=== PATIENT | female | born 1970 | race Caucasian/White ===

== ENCOUNTER → 2017-09-16 18:20 | Outpatient (CLI) | payer MEDICAID, SELFPAY ==
--- NOTE | 2017-09-16 14:00 | EMB_PTH ---
PATIENT: ISAAC RED LOC: [facility] U#:[id number] AGE/SX: 54/F ROOM: RE09/16/[address]: Dr. Angela Abdi MD : 1970 BED: DIS: SPEC #: [id number] RECD: 09/16/17 18:20 STATUS: CAMILA KAM #: [id number] KORY: 09/16/17 14:[address]: Angela Dennis DEPT: SURGICAL PATHOLOGY RECD BY: Ari Krishna ENTERED: 09/19/17 08:58 SP TYPE: ENDOM BX/C JOSR DR: [facility] Tissues: Endometrium, NOS Procedures: Surgery Specimen Level IV HEADER OPERATION: EMBX PRE-OP DIAGNOSIS: N92.0 TISSUE SUBMITTED: Endometrium MICROSCOPIC DIAGNOSIS Endometrial biopsy: Simple hyperplasia without atypia. SJ:sylwia 09/20/17 MICROSCOPIC DESCRIPTION Slides are reviewed. GROSS DESCRIPTION Received in fixative is one container labeled with the patient's name and designated EM biopsy. The specimen consists of multiple fragments of hemorrhagic soft tissue that in aggregate measure 3 x 2.5 x 0.3 cm. The specimen is totally submitted in one cassette. / SJ:sylwia 09/19/17 TC:5 CPT: 71458
== END ==
PROVIDERS: Visit Provider Obstetrics & Gynecology
DX: N92.0 Excessive and frequent menstruation with regular cycle (principal)
CPT/HCPCS: 88305

== ENCOUNTER → 2017-11-04 09:14 | Outpatient (CLI) | payer MEDICAID, SELFPAY ==
--- NOTE | 2017-11-04 09:16 | BI_ITS ---
MAMMOGRAPHY - BILATERAL SCREENING REASON FOR EXAM: Female, 47 years old. Routine annual screening examination. PERTINENT HISTORY: Non-contributory. TECHNIQUE: Digital bilateral breast ariel (3D mammographic acquisition) in the CC and MLO projections. 2-D mediolateral oblique (MLO) and craniocaudad (CC) views of both breasts were obtained. CAD: Full Field Digital Mammography with Computer Added Detection was performed. COMPARISON: None. Baseline examination. FINDINGS: Breast Composition: The breasts are heterogeneously dense, which may obscure small masses. There are no dominant masses or suspicious calcifications. No other significant abnormalities are identified. BI/SCREENING MAMM (CAD), BILAT IMPRESSION: Negative screening mammogram. Yearly followup mammogram recommended. (A) ASSESSMENT CATEGORY: BIRADS Category 1: Negative. A letter regarding these results will be sent to the patient by the facility within 30 days. Approximately 10% of breast cancers are not detected by mammography. A normal mammogram should not delay biopsy of a clinically suspicious abnormality. [id number] Electronically Signed: Cale Madison MD at 13:39 EDT Tel [phone], Service support ,
== END ==
DX: Z12.31 Encounter for screening mammogram for malignant neoplasm of breast (principal)
CPT/HCPCS: 77063; 77067

== ENCOUNTER 2017-11-19 22:44 | Inpatient (IN) | payer MEDICAID, SELFPAY ==
[2017-11-19 22:49] VITALS: BP 96/57; PULSE 226; RESP 20; TEMP 35.5; O2SAT 98; BMI 30.7
[2017-11-19 22:54] VITALS: O2SAT 98
[2017-11-19] MEDS: Adenosine 6 MG/2 ML Syringe IV (22:58)
[2017-11-19 23:00] VITALS: BP 116/92; PULSE 109; RESP 23; O2SAT 98
--- NOTE | 2017-11-19 23:00 | EKG12_ITS ---
Test Reason : REPEAT Blood Pressure : / mmHG Vent. Rate : 105 BPM Atrial Rate : 105 BPM P-R Int : 124 ms QRS Dur : 082 ms QT Int : 342 ms P-R-T Axes : 039 040 029 degrees QTc Int : 452 ms Sinus tachycardia Otherwise normal ECG Confirmed by LAUREN ESPARZA, GURWINDER ([id number]), editor managing newspaper CHANDRAKANT ROBERTS ([id number]) on 11/21/2017 3:14:34 PM Referred By: RAUL Confirmed By:GURWINDER AGUILAR MD
--- NOTE | 2017-11-19 23:00 | RAD_ITS ---
STUDY: X-RAY CHEST REASON FOR EXAM: Female, 47 years old. Chest pain TECHNIQUE: Single AP portable view of the chest. 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 There is a small calcified granuloma of the right upper lobe. 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 There is no demonstrated pleural abnormality. Normal size heart. Normal mediastinum and hernan. Normal visualized pulmonary arteries. Normal visualized aortic arch and descending thoracic aorta. Normal visualized thoracic spine. Normal visualized ribs, clavicles, and shoulders. There is no demonstrated abnormality of the visualized soft tissue structures of the upper abdomen. RAD/Chest 1 View (Portable) IMPRESSION: 1. 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 2. Small calcified granuloma of the right upper lobe, stable in the interval. 3. No acute cardiopulmonary disease process is seen. Electronically Signed: Garrick Weeks MD at 23:28 EDT , Service support ,
[2017-11-19] MEDS: 0.9% Normal Saline 1,000 ML 150 ML IV (23:04)
--- NOTE | 2017-11-19 23:05 | EKG12_ITS ---
Test Reason : SOB/CP Blood Pressure : / mmHG Vent. Rate : 218 BPM Atrial Rate : 214 BPM P-R Int : 000 ms QRS Dur : 068 ms QT Int : 198 ms P-R-T Axes : 000 045 270 degrees QTc Int : 377 ms Supraventricular tachycardia Marked ST abnormality, possible myocardial ischemia (anterior-laterial inferior) Abnormal ECG Confirmed by LAUREN ESPARZA, GURWINDER ([id number]), film editor CHANDRAKANT ROBERTS ([id number]) on 11/21/2017 3:17:54 PM Referred By: RAUL Confirmed By:GURWINDER AGUILAR MD
[2017-11-19] MEDS: Aspirin 81 MG TAB.CHEW 324 MG PO (23:08)
[2017-11-19 23:13] LABS: Absolute Neutrophil Count 8.6 X10^3/uL (2.0-7.7); Basophil# 0.03 X10^3/uL; Basophil% 0.2 % (0-1); Eosinophil# 0.13 X10^3/uL; Hematocrit 42.2 % (37-47); Hemoglobin 13.3 g/dl (12.0-15.0); Lymphocyte % 28.3 % (19-41); Mean Corp Hgb Conc 31.5 g/gl (32-36); Mean Corpuscular Hgb 24.2 pg (27.0-32.0); Mean Corpuscular Volume 76.7 fL (81-99); Mean Platelet Vol. 10.4 fl (6.2-12.0); Monocyte# 0.85 X10^3/uL; Monocyte% 6.3 % (0-10); Neutrophil # 8.62 X10^3/uL (2.7-7.7); Neutrophil % 64.1 % (47-70); Platelet Count 317 K/mm3 (150-450); RBC Distribution Width CV 16.7 % (11.6-14.6); RBC Distribution Width SD 46.5 fl (35.1-43.9); White Blood Count 13.5 K/mm3 (4.4-11.0)
[2017-11-19 23:14] LABS: POSITIVE COUNT NO; POSITIVE DIFFERENTIAL NO; POSITIVE MORPHOLOGY NO
--- NOTE | 2017-11-19 23:44 | ED.DCSUM_ITS ---
- ER Visit Summary Date of Service: 11/19/17 Chief Complaint: Chest pain History of Present Illness: The patient is a 47 F sudden chest pressure hour prior to arrival. Patient states was [facility]. She has pain into her back. Denied dyspnea, nausea, diaphoresis. Does complain of lightheaded sy mptoms. History of tobacco. No history of hypertension, diabetes, hypercholesterolemia. Reports no family history of MIs less than 55. Reports no recent stress test. No PE risk factors. No cardiac dysrhythmias. Physical Examination: General: Alert and oriented ?3, no acute distress HEENT: Normocephalic, atraumatic. Moist mucosa membranes Neck: supple, nontender. Cardiovascular: Regular tachycardic rate and rhythm, no murmurs Respiratory: Normal breath sounds, symmetric, no distress Abdomen: Soft, nontender, nondistended Extremities: Nontender, no edema, pulses intact ?4 Neuro: no focal neurological deficits. Test Results: EKG: SVT rate of 218, ST depressions V4 to V6. No elevations. EKG #2: Sinus rate of 105, no ST changes. Isolated T wave inversion in leads III. Troponin 0 0.025. Magnesium 1.9. TSH 3.3. Creatinine 0.94. White count 13.5. Hemoglobin 13. Chest x-ray negative. Emergency Department Course and Treatment: Patient SVT on arrival blood pressure in the systolic 90s. Valsalva attempted with no improvement. Patient given Adenocard 6 mg converted. Symptoms resolved. Labs are stable currently. However with her chest heaviness with her initial symptoms risk factors would be tobacco. I did speak with cardiology Dr. Mir with her ST depressions on EKG, does feel patient should be admitted to the hospital with serial enzymes and determination from there on. We did start a beta-leslie. Patient remained symptom-free. Spoke with hospitalist, Dr. Zambrano for admission. Treatment Plan: [] Disposition: Admission Impression: 1. Acute chest pain 2. SVT status post chemical cardioversion 3. Abnormal EKG This note was generated with MacroCureation software. It may contain incorrect words, spelling, and punctuation that were not noted in review of the chart prior to signing ED Disposition - Plan for ED Patient: Disposition: Acute Care Hospital [facility] Chief Complaint: Chest Pain Diagnosis: Chest pain, Abnormal EKG, SVT (supraventricular tachycardia), Chemical cardioversion Referrals: [facility],Cristine Lucia [Primary Care Provider] -
[2017-11-19] MEDS: Metoprolol Tartrate 25 MG Tablet PO (23:49)
[2017-11-19 23:51] LABS: Anion Gap 7 (5-15); BUN 11 mg/dL (7-18); BUN/Creat Ratio 11.1 RATIO (10-20); Calcium,Total 8.9 mg/dL (8.5-10.1); Chloride 103 mmol/L (98-107); Creatinine, Serum 0.99 mg/dL (0.55-1.02); EST Glomerular Filtration Rate 64 mL/min (>60); Est Glom Filt Rate - Afr Amer 77 mL/min (>60); Estimated Creatinine Clearance 52.44 ml/min; Glucose 185 mg/dL (74-106); Magnesium 1.9 mg/dL (1.6-2.6); Potassium 3.7 mmol/L (3.5-5.1); Sodium Level 137 mmol/L (136-145)
[2017-11-20] VITALS (19 sets, daily range): BP systolic 114–144; BP diastolic 75–85; PULSE 59–145; RESP 18; TEMP 36.6–36.7; O2SAT 94–98; BMI 30.7
--- NOTE | 2017-11-20 00:18 | PCM.HP.STD ---
Problem List (1) SVT (supraventricular tachycardia) Status: Acute (2) Chest pain Status: Acute Qualifiers: Chest pain type: unspecified Qualified Code(s): R07.9 - Chest pain, unspecified (3) Tobacco use Status: Chronic (4) Obesity (BMI 30.0-34.9) Status: Chronic (5) Iron deficiency anemia Status: Chronic Qualifiers: Iron deficiency anemia type: unspecified iron deficiency Qualified Code(s): D50.9 - Iron deficiency anemia, unspecified History of Present Illness Date of Admission: 11/20/17 Chief Complaint: Chest pain The patient is a 47 y/o F w/ PMHx: Tobacco use, Fe Deficiency Anemia, Obesity who presents to the [facility] ED on 11/20/17 with history of at ~ 8:30 pm lightheadedness and dizziness followed by onset 10/10 chest pressure substernally with radiation toward the back between the scapula with sensation of severe indigestion without dizziness with nausea and emesis x 1 with attempt to lay down with mild improvement, noted to change to more dull discomfort then rated 6-7/10 prompting transition to ED. In the ED work-up included T 96, heart rate initially 226--> 98 following interventions, BP initially 96/57--> 114/81, respiratory rate 18, 97% on room air, CBC with WBC 13.5, hemoglobin 13.3, platelet 317 with left shift, BMP with glucose 185, magnesium 1.9, troponin 0 0.025, TSH 3.30, chest x-ray with accessory azygous fissure of the right upper lobe representing an anatomical variant, small calcified granuloma right upper lobe stable in interval with no acute cardiopulmonary disease noted, EKG initially upon presentation with SVT rate [address] depressions V4 to V6 with no elevations with follow-up EKG sinus rate [address] changes and isolated T wave inversion in lead III. In the ED patient administered aspirin, adenosine, metoprolol 25 mg p.o. x1 in addition to normal saline. Following ED transition to sinus rhythm patient noted complete resolution of chest discomfort. Past Medical History Past Medical History (Chronic Problems): Chronic Problems Tobacco use (Chronic) Obesity (BMI 30.0-34.9) (Chronic) Iron deficiency anemia (Chronic) Allergies No Known Allergies Allergy (Verified 11/19/17 22:49) Home Medications: Ambulatory Orders Medication Instructions Recorded Ferrous Gluconate 325 mg PO BID 11/19/17 Surgical History: - - BLTL. 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 Smoking Status: Current every day smoker Tobacco Use: Cigarettes - 4-5 cigarettes/day, notes she has been cutting down and attempting to quit. Alcohol: None Drugs: None - *Family History Maternal History Items: - - Maternal family history of [place], heart disease. Paternal History Items: - - Paternal family history of heart disease/[place]/CABG in his 60s. Review of Systems Constitutional: Reports: Malaise, Weakness, Fatigue. Denies: Chills, Fever, Weight Change HEENT: Denies: Head Aches, Sinus Congestion, Sinus Drainage Cardiovascular: Reports: Chest Pain, Chest Pressure, Light Headedness. Denies: Palpitations Respiratory: Denies: Cough, Shortness of breath at rest, Sputum production Gastrointestinal: Reports: Nausea, Vomiting. Denies: Abdominal Pain Genitourinary: Denies: Dysuria Musculoskeletal: Denies: Joint Pain, Joint Tenderness Skin: Denies: Rash, Wounds Neurological: Denies: Numbness, Tingling, Focal weakness Psychiatric: Denies: Anxiety, Depression, Homicidal Ideations, Suicidal Ideations Hematologic/ Lymphatic: Denies: Easy Bruising, Easy Bleeding VTE Information - Inpt Only VTE Present on Admission: No VTE Mechan Device Prophylaxis: SCD's VTE Pharm Prophylaxis ordered?: Yes Patient Problems: Active and Suspected Problems SVT (supraventricular tachycardia) (Acute) Chest pain (Acute) Subjective: Seated upright in the ED bed, tearful at having to stay, wanting to go outside and smoke. Objective: Physical Examination: General: awake, alert, oriented x 3 and cooperative, seated upright in the ED bed, chest discomfort resolved. Skin: normal color, turgor, no icterus, cyanosis. HEENT: AT/NC, EOMI, PERRLA, mildly dry MM, no carotid bruits or JVD noted. Lungs: Diminished BS BL, > bases, moderate effort, no rales, ronchi or wheezing. Heart: Improved, mildly tachycardic, regular rhythm; no gallop, rub audible. Abdomen: soft, obese, NTTP, ND, normal BS, no HSM. Extremities: no cyanosis, clubbing, or edema. Neurological: patient awake, alert, oriented x 3; cognitive function intact; pupils equally reactive to light and accomodation; cranial nerves II-XII grossly normal, moving all 4 extremities, no focal deficits, strength mildly globally decreased. Psychiatric: affect appears anxious, tearful at having to stay, no acute evidence of depressive feelings. - Physical Exam Vital Signs Temp Pulse Resp BP Pulse Ox 96 F L 98 18 114/81 H 97 11/19/17 22:49 11/20/17 00:00 11/20/17 00:00 11/20/17 00:00 11/20/17 00:00 Oxygen Flow Rate (L/min) 2 Oxygen Delivery Method Room Air Weight: 162 lb 14.746 oz Body Mass Index (BMI) 30.7 Laboratory Tests Past 24 Hrs 11/19/17 11/19/17 22:50 22:50 WBC 13.5 H RBC 5.50 H Hgb 13.3 Hct 42.2 MCV 76.7 L MCH 24.2 L MCHC 31.5 L RDW 16.7 H RDW Differential 46.5 H Plt Count 317 MPV 10.4 Immature Gran % (Auto) 0.100 Neut % (Auto) 64.1 Lymph % (Auto) 28.3 Burt % (Auto) 6.3 Eos % (Auto) 1.0 Baso % (Auto) 0.2 Absolute Neuts (auto) 8.6 H Absolute Lymphs (auto) 3.80 Total Counted Not Reportable Sodium 137 Potassium 3.7 Chloride 103 Carbon Dioxide 27.0 Anion Gap 7 BUN 11 Creatinine 0.99 Estim Creat Clear Calc 52.44 Est GFR (MDRD) Af Amer 77 Est GFR (MDRD) Non-Af 64 BUN/Creatinine Ratio 11.1 Glucose 185 H Calcium 8.9 Magnesium 1.9 Troponin I 0.025 TSH 3.30 Assessment/Plan All Active Problems SVT (supraventricular tachycardia) (Acute) Chest pain (Acute) The patient is a 47 y/o F w/ PMHx: Tobacco use, Fe Deficiency Anemia, Obesity who presents to the [facility] ED on 11/20/17 with history of at ~ 8:30 pm lightheadedness and dizziness followed by onset 10/10 chest pressure substernally with radiation toward the back between the scapula with sensation of severe indigestion without dizziness with nausea and emesis x 1 with attempt to lay down with mild improvement, noted to change to more dull discomfort then rated 6-7/10 prompting transition to ED. (1) Cardiac arrhythmia, SVT with associated chest pain: ED work-up included T 96, heart rate initially 226--> 98 following interventions, BP initially 96/57--> 114/81, respiratory rate 18, 97% on room air, CBC with WBC 13.5, hemoglobin 13.3, platelet 317 with left shift, BMP with glucose 185, magnesium 1.9, troponin 0 0.025, TSH 3.30, chest x-ray with accessory azygous fissure of the right upper lobe representing an anatomical variant, small calcified granuloma right upper lobe stable in interval with no acute cardiopulmonary disease noted, EKG initially upon presentation with SVT rate [address] depressions V4 to V6 with no elevations with follow-up EKG sinus rate [address] changes and isolated T wave inversion in lead III. Will admit to PCU, place on a monitored bed to assure no acute myocardial infarction with serial cardiac enzymes and EKGs. ASA, NG, morphine. Mag 1.9. FLP in AM. Cardiology consulted per ED and requested continued metoprolol regimen. Suspect will potentially perform cardiac catheterization, but unclear. ECHO ordered. (2) Fe Deficiency Anemia: Admission Hgb 13.3, continue home Fe supplementation. (3) Hyperglycemia: Admission glucose 185, obtain HgBA1c. (4) Tobacco Abuse: Encouraged cessation, inpatient consultation per RT, NR if desired. (5) DVT Prophylaxis: SCDs, lovenox. Code Visit OBSV E&M: 79423 Initial observation care L3
--- NOTE | 2017-11-20 00:34 | HP.PCM_ITS ---
Problem List (1) SVT (supraventricular tachycardia) Status: Acute (2) Chest pain Status: Acute Qualifiers: Chest pain type: unspecified Qualified Code(s): R07.9 - Chest pain, unspecified (3) Tobacco use Status: Chronic (4) Obesity (BMI 30.0-34.9) Status: Chronic (5) Iron deficiency anemia Status: Chronic Qualifiers: Iron deficiency anemia type: unspecified iron deficiency Qualified Code(s): D50.9 - Iron deficiency anemia, unspecified History of Present Illness Date of Admission: 11/20/17 Chief Complaint: Chest pain The patient is a 47 y/o F w/ PMHx: Tobacco use, Fe Deficiency Anemia, Obesity who presents to the [facility] ED on 11/20/17 with history of at ~ 8:30 pm lightheadedness and dizziness followed by onset 10/10 chest pressure substernally with radiation toward the back between the scapula with sensation of severe indigestion without dizziness with nausea and emesis x 1 with attempt to lay down with mild improvement, noted to change to more dull discomfort then rated 6-7/10 prompting transition to ED. In the ED work-up included T 96, heart rate initially 226--> 98 following interventions, BP initially 96/57--> 114/81, respiratory rate 18, 97% on room air, CBC with WBC 13.5, hemoglobin 13.3, platelet 317 with left shift, BMP with glucose 185, magnesium 1.9, troponin 0 0.025, TSH 3.30, chest x-ray with accessory azygous fissure of the right upper lobe representing an anatomical variant, small calcified granuloma right upper lobe stable in interval with no acute cardiopulmonary disease noted, EKG initially upon presentation with SVT rate [address] depressions V4 to V6 with no elevations with follow-up EKG sinus rate [address] changes and isolated T wave inversion in lead III. In the ED patient administered aspirin, adenosine, metoprolol 25 mg p.o. x1 in addition to normal saline. Following ED transition to sinus rhythm patient noted complete resolution of chest discomfort. Past Medical History Past Medical History (Chronic Problems): Chronic Problems Tobacco use (Chronic) Obesity (BMI 30.0-34.9) (Chronic) Iron deficiency anemia (Chronic) Allergies No Known Allergies Allergy (Verified 11/19/17 22:49) Home Medications: Ambulatory Orders Medication Instructions Recorded Ferrous Gluconate 325 mg PO BID 11/19/17 Surgical History: - - BLTL. 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 Smoking Status: Current every day smoker Tobacco Use: Cigarettes - 4-5 cigarettes/day, notes she has been cutting down and attempting to quit. Alcohol: None Drugs: None - *Family History Maternal History Items: - - Maternal family history of [place], heart disease. Paternal History Items: - - Paternal family history of heart disease/[place]/CABG in his 60s. Review of Systems Constitutional: Reports: Malaise, Weakness, Fatigue. Denies: Chills, Fever, Weight Change HEENT: Denies: Head Aches, Sinus Congestion, Sinus Drainage Cardiovascular: Reports: Chest Pain, Chest Pressure, Light Headedness. Denies: Palpitations Respiratory: Denies: Cough, Shortness of breath at rest, Sputum production Gastrointestinal: Reports: Nausea, Vomiting. Denies: Abdominal Pain Genitourinary: Denies: Dysuria Musculoskeletal: Denies: Joint Pain, Joint Tenderness Skin: Denies: Rash, Wounds Neurological: Denies: Numbness, Tingling, Focal weakness Psychiatric: Denies: Anxiety, Depression, Homicidal Ideations, Suicidal Ideations Hematologic/ Lymphatic: Denies: Easy Bruising, Easy Bleeding VTE Information - Inpt Only VTE Present on Admission: No VTE Mechan Device Prophylaxis: SCD's VTE Pharm Prophylaxis ordered?: Yes Patient Problems: Active and Suspected Problems SVT (supraventricular tachycardia) (Acute) Chest pain (Acute) Subjective: Seated upright in the ED bed, tearful at having to stay, wanting to go outside and smoke. Objective: Physical Examination: General: awake, alert, oriented x 3 and cooperative, seated upright in the ED bed, chest discomfort resolved. Skin: normal color, turgor, no icterus, cyanosis. HEENT: AT/NC, EOMI, PERRLA, mildly dry MM, no carotid bruits or JVD noted. Lungs: Diminished BS BL, > bases, moderate effort, no rales, ronchi or wheezing. Heart: Improved, mildly tachycardic, regular rhythm; no gallop, rub audible. Abdomen: soft, obese, NTTP, ND, normal BS, no HSM. Extremities: no cyanosis, clubbing, or edema. Neurological: patient awake, alert, oriented x 3; cognitive function intact; pupils equally reactive to light and accomodation; cranial nerves II-XII grossly normal, moving all 4 extremities, no focal deficits, strength mildly globally decreased. Psychiatric: affect appears anxious, tearful at having to stay, no acute evidence of depressive feelings. - Physical Exam Vital Signs Temp Pulse Resp BP Pulse Ox 96 F L 98 18 114/81 H 97 11/19/17 22:49 11/20/17 00:00 11/20/17 00:00 11/20/17 00:00 11/20/17 00:00 Oxygen Flow Rate (L/min) 2 Oxygen Delivery Method Room Air Weight: 162 lb 14.746 oz Body Mass Index (BMI) 30.7 Laboratory Tests Past 24 Hrs 11/19/17 11/19/17 22:50 22:50 WBC 13.5 H RBC 5.50 H Hgb 13.3 Hct 42.2 MCV 76.7 L MCH 24.2 L MCHC 31.5 L RDW 16.7 H RDW Differential 46.5 H Plt Count 317 MPV 10.4 Immature Gran % (Auto) 0.100 Neut % (Auto) 64.1 Lymph % (Auto) 28.3 Alcorn % (Auto) 6.3 Eos % (Auto) 1.0 Baso % (Auto) 0.2 Absolute Neuts (auto) 8.6 H Absolute Lymphs (auto) 3.80 Total Counted Not Reportable Sodium 137 Potassium 3.7 Chloride 103 Carbon Dioxide 27.0 Anion Gap 7 BUN 11 Creatinine 0.99 Estim Creat Clear Calc 52.44 Est GFR (MDRD) Af Amer 77 Est GFR (MDRD) Non-Af 64 BUN/Creatinine Ratio 11.1 Glucose 185 H Calcium 8.9 Magnesium 1.9 Troponin I 0.025 TSH 3.30 Assessment/Plan All Active Problems SVT (supraventricular tachycardia) (Acute) Chest pain (Acute) The patient is a 47 y/o F w/ PMHx: Tobacco use, Fe Deficiency Anemia, Obesity who presents to the [facility] ED on 11/20/17 with history of at ~ 8:30 pm lightheadedness and dizziness followed by onset 10/10 chest pressure substernally with radiation toward the back between the scapula with sensation of severe indigestion without dizziness with nausea and emesis x 1 with attempt to lay down with mild improvement, noted to change to more dull discomfort then rated 6-7/10 prompting transition to ED. (1) Cardiac arrhythmia, SVT with associated chest pain: ED work-up included T 96, heart rate initially 226--> 98 following interventions, BP initially 96/57--> 114/81, respiratory rate 18, 97% on room air, CBC with WBC 13.5, hemoglobin 13.3, platelet 317 with left shift, BMP with glucose 185, magnesium 1.9, troponin 0 0.025, TSH 3.30, chest x-ray with accessory azygous fissure of the right upper lobe representing an anatomical variant, small calcified granuloma right upper lobe stable in interval with no acute cardiopulmonary disease noted, EKG initially upon presentation with SVT rate [address] depre ssions V4 to V6 with no elevations with follow-up EKG sinus rate [address] changes and isolated T wave inversion in lead III. Will admit to PCU, place on a monitored bed to assure no acute myocardial infarction with serial cardiac enzymes and EKGs. ASA, NG, morphine. Mag 1.9. FLP in AM. Cardiology consulted per ED and requested continued metoprolol regimen. Suspect will potentially perform cardiac catheterization, but unclear. ECHO ordered. (2) Fe Deficiency Anemia: Admission Hgb 13.3, continue home Fe supplementation. (3) Hyperglycemia: Admission glucose 185, obtain HgBA1c. (4) Tobacco Abuse: Encouraged cessation, inpatient consultation per RT, NR if desired. (5) DVT Prophylaxis: SCDs, lovenox. Code Visit OBSV E&M: 05147 Initial observation care L3
--- NOTE | 2017-11-20 01:00 | ECHOD_ITS ---
Reason For Study: Arrhythmia Procedure This was a 2D Doppler, Color Flow transthoracic echocardiogram. The exam was of fair technical quality due to diminished acoustic windows. Exam performed portable in patient room. Left Ventricle Normal LV size. Left ventricular systolic function is normal. The estimated ejection fraction is 60 %. Normal diastology for age. No regional wall motion abnormalities noted. Right Ventricle Normal RV size. Normal systolic function. Atria Normal left atrium. Normal right atrium. No doppler evidence for ASD. Mitral Valve There is no mitral annular calcification. Normal mitral valve. Trivial mitral valve insufficiency. Tricuspid Valve Normal tricuspid valve. Trivial tricuspid valve insufficiency. Right ventricular systolic pressure estimated to be 24 mmHg. Aortic Valve Trisinus/trileaflet aortic valve. Normal aortic valve. Pulmonic Valve The pulmonic valve is not well visualized. Great Vessels Normal sized aortic root. Pericardium/Pleural No pericardial effusion. MMode/2D Measurements & Calculations LVIDd: 4.8 cm IVSd: 0.75 cm Ao root diam: 2.9 cm LVIDs: 3.2 cm LVPWd: 0.92 cm RVDd: 3.2 cm FS: 33.5 % LAV(MOD-bp): 42.5 ml LVAd ap4: 27.4 cm2 SV(MOD-sp4): 50.2 ml LAV(MOD-bp) Indexed: 24.6 ml/m2 EDV(MOD-sp4): 84.0 ml LAV(MOD-sp2): 48.4 ml EDV(sp4-el): 85.3 ml LAV(MOD-sp4): 32.7 ml LVAs ap4: 15.4 cm2 ESV(MOD-sp4): 33.8 ml ESV(sp4-el): 34.1 ml EF(MOD-sp4): 59.8 % EF(sp4-el): 60.0 % SV(sp4-el): 51.2 ml LA A4 area: 14.9 cm2 RA A4 area: 14.3 cm2 Doppler Measurements & Calculations MV E max russ: 107.3 cm/sec Lat Peak E' Russ: 11.6 cm/sec Med Peak E' Russ: 9.8 cm/sec MV A max russ: 87.4 cm/sec E/E' lat: 9.3 E/E' med: 10.9 MV E/A: 1.2 Ao V2 max: 159.2 cm/sec LV V1 max: 106.8 cm/sec PA V2 max: 84.7 cm/sec Ao max P.1 mmHg LV V1 max P.6 mmHg Ao V2 mean: 110.8 cm/sec Ao mean P.4 mmHg Ao V2 VTI: 35.0 cm TR max russ: 230.1 cm/sec TR max P.2 mmHg Interpretation Summary Left ventricular systolic function is normal. The estimated ejection fraction is 60 %. Trivial mitral valve insufficiency. Trivial tricuspid valve insufficiency. Right ventricular systolic pressure estimated to be 24 mmHg. Normal diastology for age. Ordering Physician: Ree Zambrano Referring Physician: Cristine Lucia [facility] Performed By: Zena Santillan, CLARI, RVT
--- NOTE | 2017-11-20 01:00 | EKG12_ITS ---
Test Reason : ADMIT Blood Pressure : / mmHG Vent. Rate : 087 BPM Atrial Rate : 087 BPM P-R Int : 118 ms QRS Dur : 078 ms QT Int : 354 ms P-R-T Axes : 049 034 025 degrees QTc Int : 425 ms Normal sinus rhythm Normal ECG When compared with ECG of 20-DEC-2016 16:23, No significant change was found Confirmed by CLOTILDE ESPARZA, GAVI ([id number]), assistant film editor CHANDRAKANT ROBERTS ([id number]) on 11/22/2017 2:50:38 PM Referred By: AZIZA Confirmed By:GAVI MABRY MD
[2017-11-20] MEDS: Magnesium Sulfate 1 GM in 0.9% Normal Saline 100 ML IV (01:32)
[2017-11-20] MEDS: Enoxaparin 80 MG/0.8 ML Syringe 70 MG SC ×2 (02:52→18:18)
[2017-11-20] MEDS: 0.9% Normal Saline 1,000 ML 100 ML IV ×3 (02:54→23:34)
[2017-11-20 05:15] LABS: Hematocrit 35.8 % (37-47); Hemoglobin 11.4 g/dl (12.0-15.0); Mean Corp Hgb Conc 31.8 g/gl (32-36); Mean Corpuscular Hgb 24.4 pg (27.0-32.0); Mean Corpuscular Volume 76.7 fL (81-99); Mean Platelet Vol. 10.8 fl (6.2-12.0); Platelet Count 288 K/mm3 (150-450); RBC Distribution Width CV 17.2 % (11.6-14.6); RBC Distribution Width SD 46.8 fl (35.1-43.9); Red Blood Count 4.67 M/mm3 (4.2-5.4); White Blood Count 9.4 K/mm3 (4.4-11.0)
[2017-11-20 05:16] LABS: Scan Indicated on CBC? Y/N NO
[2017-11-20 05:37] LABS: ALB/GLOB Ratio 0.8 RATIO (0.9-2.4); AST(SGOT) 44 U/L (15-37); Alanine Aminotransfer ALT/SGPT 78 U/L (13-56); Albumin, Serum 2.8 g/dL (3.2-5.0); Alkaline Phosphatase 45 U/L (45-117); Anion Gap 8 (5-15); BUN 12 mg/dL (7-18); Calcium,Total 8.5 mg/dL (8.5-10.1); Chloride 107 mmol/L (98-107); Cholesterol 126 mg/dL (200); Creatinine, Serum 0.67 mg/dL (0.55-1.02); EST Glomerular Filtration Rate 100 mL/min (>60); Est Glom Filt Rate - Afr Amer 121 mL/min (>60); Estimated Creatinine Clearance 77.49 ml/min; Globulin 3.7 g/dL (2.2-4.2); Glucose 122 mg/dL (74-106); High Density Lipoprotein 28 mg/dL; Protein, Total 6.5 g/dL (6.4-8.2); Sodium Level 142 mmol/L (136-145); Triglycerides 191 mg/dL; Very Low Density Lipoprotein 38 mg/dL (5-40)
[2017-11-20] MEDS: Ferrous Gluconate 325 MG Tablet PO ×2 (10:04→18:18)
[2017-11-20] MEDS: Famotidine 20 MG Tablet PO ×2 (10:04→21:04)
[2017-11-20] MEDS: Metoprolol Tartrate 25 MG Tablet PO (10:04)
[2017-11-20] MEDS: Aspirin E.C. 81 MG Tablet PO (10:04)
--- NOTE | 2017-11-20 12:15 | PCM.CONS.C ---
Problem List (1) SVT (supraventricular tachycardia) Status: Acute (2) NSTEMI (non-ST elevated myocardial infarction) Status: Acute (3) Tobacco use Status: Chronic Reason for Consult Date of Consultation: 11/20/17 History of Present Illness: The patient is a 47 year old female who claims to have no past cardiovascular history who is pending upcoming gynecologic surgery with hysterectomy for concerns of an underlying precancerous condition presents for evaluation of chest pain, findings compatible with PSVT, and cardiac enzyme findings compatible with a non-ST segment elevation [place]. The patient states that yesterday evening, while preparing her home for gas, she suddenly became lightheaded and dizzy. She felt chest discomfort initially as indigestion but then subsequently as a dull sensation. She notes she went on to have nausea, emesis, and became diaphoretic. She was encouraged by her family to present to the emergency department for further evaluation. In the emergency department she had an ECG performed and she was noted to have what appeared to be underlying supraventricular tachycardia with a ventricular rate in excess of 200 bpm with associated marked ST segment abnormality concerning for myocardial ischemia especially in the anterolateral and inferior distributions. She was treated with IV adenosine and had abrupt termination to sinus rhythm thus suggesting she had an underlying reentry mechanism tachycardia. A follow-up ECG was performed. She was noted then to be in sinus rhythm/sinus tachycardia with her ST segment changes returning towards baseline. She was treated medically with beta-blockers and subsequently placed in the PCU for further evaluation and care. Since being in the PCU she has felt better. Her cardiac enzymes have been followed and they have elevated. Her repeat ECG demonstrated sinus rhythm with no acute ECG changes. Her cardiac rhythm has remained sinus. She denies any similar episodes in the past. She has had no orthopnea, PND, peripheral pitting edema. There is been no near syncope or syncope. She states she has never undergone cardiovascular diagnostic studies in the past. 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 [] Past Medical History Allergies/Adverse Reactions: Allergies No Known Allergies Allergy (Verified 11/19/17 22:49) Home Medications: Ambulatory Orders Medication Instructions Recorded Ferrous Gluconate 325 mg PO BID 11/19/17 Past Medical History (Chronic Problems): Chronic Problems Tobacco use (Chronic) Obesity (BMI 30.0-34.9) (Chronic) Iron deficiency anemia (Chronic) Surgical History: - - BLTL. 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 Paternal History Items: - - Paternal family history of heart disease/TN/CABG in his 60s. Lives: With Family - Lives with her daughter and her family. Smoking Status: Current every day smoker Tobacco Use: Cigarettes - 4-5 cigarettes/day, notes she has been cutting down and attempting to quit. Alcohol: None Drugs: None Review of Systems - Review of Systems General: Denies: Fever, Night Sweats, Fatigue Cardiovascular: Reports: Chest Discomfort, Chest Discomfort at Rest, Lightheadedness, - - Diaphoresis. Denies: Shortness of Breath, Orthopnea, PND, Peripheral Edema, Palpitations, Dizziness, Near Syncope, Syncope Respiratory: Denies: Cough, Sputum Production, Hemoptysis Gastrointestinal: Reports: Nausea, Emesis. Denies: Hematemesis, Hematochezia, Melena Genitourinary: Denies: Dysuria, Hematuria Skin: Denies: Rash Subjectve: This is a 47-year-old white female who appears to be resting comfortably at the moment in no acute distress. Objective: Vital Signs Temp Pulse Resp BP Pulse Ox 97.9 F 79 18 126/75 H 97 11/20/17 06:14 11/20/17 11:04 11/20/17 06:14 11/20/17 06:14 11/20/17 06:50 Oxygen Flow Rate (L/min) 2 Oxygen Delivery Method Room Air Weight: 162 lb 7.691 oz Body Mass Index (BMI) 30.7 Intake and Output for Last 24 Hours 11/18/17 11/19/17 11/20/17 23:59 23:59 23:59 Intake Total 618 / 618 Balance 618 / 618 General: Awake, Alert, Oriented x 3, Cooperative, No Acute Distress HEENT: Atraumatic, Normocephalic, PERRL, EOMI, Sclera Non Icteric Oral: Moist Mucosa Neck: Supple, Good ROM, No JVD Lungs: Clear to auscultation Cardiovascular: Regular Rhythm, Normal S1, Normal S2 Vascular: No Carotid Bruits Abdomen: Bowel Sounds Present, Soft, Non Tender Extremities: No Cyanosis, No Clubbing, No edema Neurological: No Focal Motor or Sensory Deficit Psych/Mental Status: Appropriate, Normal Affect 11/19/17 22:50: WBC 13.5 H, RBC 5.50 H, Hgb 13.3, Hct 42.2, MCV 76.7 L, MCH 24.2 L, MCHC 31.5 L, RDW 16.7 H, RDW Differential 46.5 H, Plt Count 317, MPV 10.4, Immature Gran % (Auto) 0.100, Neut % (Auto) 64.1, Lymph % (Auto) 28.3, [place] % (Auto) 6.3, Eos % (Auto) 1.0, Baso % (Auto) 0.2, Absolute Neuts (auto) 8.6 H, Total Counted Not Reportable 11/19/17 22:50: Sodium 137, Potassium 3.7, Chloride 103, Carbon Dioxide 27.0, Anion Gap 7, BUN 11, Creatinine 0.99, Est GFR (MDRD) Af Amer 77, Est GFR (MDRD) Non-Af 64, BUN/Creatinine Ratio 11.1, Glucose 185 H, Calcium 8.9, Magnesium 1.9, Troponin I 0.025 11/20/17 01:37: Troponin I 0.295 H 11/20/17 04:50: WBC 9.4, RBC 4.67, Hgb 11.4 L, Hct 35.8 L, MCV 76.7 L, MCH 24.4 L, MCHC 31.8 L, RDW 17.2 H, RDW Differential 46.8 H, Plt Count 288, MPV 10.8 11/20/17 04:50: Sodium 142, Potassium 4.0, Chloride 107, Carbon Dioxide 27.0, Anion Gap 8, BUN 12, Creatinine 0.67, Est GFR (MDRD) Af Amer 121, Est GFR (MDRD) Non-Af 100, BUN/Creatinine Ratio 18.0, Glucose 122 H, Calcium 8.5, Total Bilirubin 0.20, Triglycerides 191, Cholesterol 126, LDL Cholesterol 60, VLDL Cholesterol 38, HDL Cholesterol 28 L 11/20/17 04:50: Troponin I 0.403 H Rhythm: Sinus rhythm EKG: As noted above CXR: Preliminary review: No acute cardiopulmonary disease process appreciated Assessment/Plan 1. Paroxysmal supraventricular tachycardia The patient had an episode of paroxysmal supraventricular tachycardia. Based upon the review of the patient's clinical course, her cardiac rhythm strips, her response to IV adenosine, it appears that this is compatible with a reentry mechanism tachydysrhythmia. At the present time she appears to be maintaining sinus rhythm. Her follow-up ECGs have demonstrated no acute ECG changes. She is being treated with beta-leslie therapy. In the future she should be considered for EP evaluation for consideration for EPS/RFA. 2. Non-ST segment elevation TN The patient has cardiac enzyme findings compatible with a non-ST segment elevation TN. This may be a type II event based upon supply demand mismatch based upon her underlying PSVT. However, she does have cardiovascular risk factors with respect to her history of tobacco use as well as her parents history of having underlying CAD requiring revascularization therapy. Thus at the present time she will continue to be monitored. Her cardiac enzymes will be followed. She will continue medical management. This is included aspirin therapy as well as beta-leslie therapy. It would not be unreasonable based upon her cardiovascular risk factors, her clinical event, and the need for upcoming noncardiovascular surgery, to consider further evaluation of her coronary status with diagnostic cardiac catheterization. The procedure and risks were discussed with her and she was agreeable to this approach. 3. Tobacco abuse The patient states she is decreasing her tobacco intake. She was told she needed to do so prior to her upcoming gynecologic surgery. Comment: The above was discussed and reviewed with the patient and previously with the [facility] emergency department staff as well as with Dr. Torres. This note was generated with [employer] dictation software. It may contain incorrect words, spelling, and punctuation that were not noted in checking the note before signing.
--- NOTE | 2017-11-20 12:19 | CON.PCM_ITS ---
Problem List (1) SVT (supraventricular tachycardia) Status: Acute (2) NSTEMI (non-ST elevated myocardial infarction) Status: Acute (3) Tobacco use Status: Chronic Reason for Consult Date of Consultation: 11/20/17 History of Present Illness: The patient is a 47 year old female who claims to have no past cardiovascular history who is pending upcoming gynecologic surgery with hysterectomy for concerns of an underlying precancerous condition presents for evaluation of chest pain, findings compatible with PSVT, and cardiac enzyme findings compatible with a non-ST segment elevation [place]. The patient states that yesterday evening, while preparing her home for gas, she suddenly became lightheaded and dizzy. She felt chest discomfort initially as indigestion but then subsequently as a dull sensation. She notes she went on to have nausea, emesis, and became diaphoretic. She was encouraged by her family to present to the emergency department for further evaluation. In the emergency department she had an ECG performed and she was noted to have what appeared to be underlying supraventricular tachycardia with a ventricular rate in excess of 200 bpm with associated marked ST segment abnormality concerning for myocardial ischemia especially in the anterolateral and inferior distributions. She was treated with IV adenosine and had abrupt termination to sinus rhythm thus suggesting she had an underlying reentry mechanism tachycardia. A follow-up ECG was performed. She was noted then to be in sinus rhythm/sinus tachycardia with her ST segment changes returning towards baseline. She was treated medically with beta-blockers and subsequently placed in the PCU for further evaluation and care. Since being in the PCU she has felt better. Her cardiac enzymes have been followed and they have elevated. Her repeat ECG demonstrated sinus rhythm with no acute ECG changes. Her cardiac rhythm has remained sinus. She denies any similar episodes in the past. She has had no orthopnea, PND, peripheral pitting edema. There is been no near syncope or syncope. She states she has never undergone cardiovascular diagnostic studies in the past. 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 [] Past Medical History Allergies/Adverse Reactions: Allergies No Known Allergies Allergy (Verified 11/19/17 22:49) Home Medications: Ambulatory Orders Medication Instructions Recorded Ferrous Gluconate 325 mg PO BID 11/19/17 Past Medical History (Chronic Problems): Chronic Problems Tobacco use (Chronic) Obesity (BMI 30.0-34.9) (Chronic) Iron deficiency anemia (Chronic) Surgical History: - - BLTL. 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 Paternal History Items: - - Paternal family history of heart disease/[place]/CABG in his 60s. Lives: With Family - Lives with her daughter and her family. Smoking Status: Current every day smoker Tobacco Use: Cigarettes - 4-5 cigarettes/day, notes she has been cutting down and attempting to quit. Alcohol: None Drugs: None Review of Systems - Review of Systems General: Denies: Fever, Night Sweats, Fatigue Cardiovascular: Reports: Chest Discomfort, Chest Discomfort at Rest, Lightheade dness, - - Diaphoresis. Denies: Shortness of Breath, Orthopnea, PND, Peripheral Edema, Palpitations, Dizziness, Near Syncope, Syncope Respiratory: Denies: Cough, Sputum Production, Hemoptysis Gastrointestinal: Reports: Nausea, Emesis. Denies: Hematemesis, Hematochezia, Melena Genitourinary: Denies: Dysuria, Hematuria Skin: Denies: Rash Subjectve: This is a 47-year-old white female who appears to be resting comfortably at the moment in no acute distress. Objective: Vital Signs Temp Pulse Resp BP Pulse Ox 97.9 F 79 18 126/75 H 97 11/20/17 06:14 11/20/17 11:04 11/20/17 06:14 11/20/17 06:14 11/20/17 06:50 Oxygen Flow Rate (L/min) 2 Oxygen Delivery Method Room Air Weight: 162 lb 7.691 oz Body Mass Index (BMI) 30.7 Intake and Output for Last 24 Hours 11/18/17 11/19/17 11/20/17 23:59 23:59 23:59 Intake Total 618 / 618 Balance 618 / 618 General: Awake, Alert, Oriented x 3, Cooperative, No Acute Distress HEENT: Atraumatic, Normocephalic, PERRL, EOMI, Sclera Non Icteric Oral: Moist Mucosa Neck: Supple, Good ROM, No JVD Lungs: Clear to auscultation Cardiovascular: Regular Rhythm, Normal S1, Normal S2 Vascular: No Carotid Bruits Abdomen: Bowel Sounds Present, Soft, Non Tender Extremities: No Cyanosis, No Clubbing, No edema Neurological: No Focal Motor or Sensory Deficit Psych/Mental Status: Appropriate, Normal Affect 11/19/17 22:50: WBC 13.5 H, RBC 5.50 H, Hgb 13.3, Hct 42.2, MCV 76.7 L, MCH 24.2 L, MCHC 31.5 L, RDW 16.7 H, RDW Differential 46.5 H, Plt Count 317, MPV 10.4, Immature Gran % (Auto) 0.100, Neut % (Auto) 64.1, Lymph % (Auto) 28.3, [place] % (Auto) 6.3, Eos % (Auto) 1.0, Baso % (Auto) 0.2, Absolute Neuts (auto) 8.6 H, Total Counted Not Reportable 11/19/17 22:50: Sodium 137, Potassium 3.7, Chloride 103, Carbon Dioxide 27.0, Anion Gap 7, BUN 11, Creatinine 0.99, Est GFR (MDRD) Af Amer 77, Est GFR (MDRD) Non-Af 64, BUN/Creatinine Ratio 11.1, Glucose 185 H, Calcium 8.9, Magnesium 1.9, Troponin I 0.025 11/20/17 01:37: Troponin I 0.295 H 11/20/17 04:50: WBC 9.4, RBC 4.67, Hgb 11.4 L, Hct 35.8 L, MCV 76.7 L, MCH 24.4 L, MCHC 31.8 L, RDW 17.2 H, RDW Differential 46.8 H, Plt Count 288, MPV 10.8 11/20/17 04:50: Sodium 142, Potassium 4.0, Chloride 107, Carbon Dioxide 27.0, Anion Gap 8, BUN 12, Creatinine 0.67, Est GFR (MDRD) Af Amer 121, Est GFR (MDRD) Non-Af 100, BUN/Creatinine Ratio 18.0, Glucose 122 H, Calcium 8.5, Total Bilirubin 0.20, Triglycerides 191, Cholesterol 126, LDL Cholesterol 60, VLDL Cholesterol 38, HDL Cholesterol 28 L 11/20/17 04:50: Troponin I 0.403 H Rhythm: Sinus rhythm EKG: As noted above CXR: Preliminary review: No acute cardiopulmonary disease process appreciated Assessment/Plan 1. Paroxysmal supraventricular tachycardia The patient had an episode of paroxysmal supraventricular tachycardia. Based upon the review of the patient's clinical course, her cardiac rhythm strips, her response to IV adenosine, it appears that this is compatible with a reentry mechanism tachydysrhythmia. At the present time she appears to be maintaining sinus rhythm. Her follow-up ECGs have demonstrated no acute ECG changes. She is being treated with beta-leslie therapy. In the future she should be considered for EP evaluation for consideration for EPS/RFA. 2. Non-ST segment elevation [place] The patient has cardiac enzyme findings compatible with a non-ST segment elevation [place]. This may be a type II event based upon supply demand mismatch based upon her underlying PSVT. However, she does have cardiovascular risk factors with respect to her history of tobacco use as well as her parents history of having underlying CAD requiring revascularization therapy. Thus at the present time she will continue to be monitored. Her cardiac enzymes will be followed. She will continue medical management. This is included aspirin therapy as well as beta-leslie therapy. It would not be unreasonable based upon her cardiovascular risk factors, her clinical event, and the need for upcoming noncardiovascular surgery, to consider further evaluation of her coronary status with diagnostic cardiac catheterization. The procedure and risks were discussed with her and she was agreeable to this approach. 3. Tobacco abuse The patient states she is decreasing her tobacco intake. She was told she needed to do so prior to her upcoming gynecologic surgery. Comment: The above was discussed and reviewed with the patient and previously with the [facility] emergency department staff as well as with Dr. Torres. This note was generated with [employer] software. It may contain incorrect words, spelling, and punctuation that were not noted in checking the note before signing.
[2017-11-20] MEDS: Acetaminophen 325 MG Tablet 650 MG PO (13:58)
[2017-11-20] MEDS: Clopidogrel Bisulfate 300 MG Tablet PO (13:58)
--- NOTE | 2017-11-20 15:30 | CM.UR ---
Met face to face with patient. Introduced myself and explained my role. CM assmt completed. See attached link. Prior level of functioning was independent for everything except she doesn't drive. Discharge plan is to return home. Ravi Mcneil RN, CCM.
--- NOTE | 2017-11-20 16:32 | PCM.HOSP.N ---
Hospitalist Note Patient was seen briefly today, I discussed her care with cardiology. Patient came in with an episode of SVT-she has never had a similar episode before. Her troponin is elevated, cardiology will take her for cardiac catheterization tomorrow and an echocardiogram will be performed. Patient currently is stable on PCU
[2017-11-20] MEDS: Metoprolol Tartrate 25 MG Tablet 50 MG PO (21:06)
[2017-11-20 22:38] LABS: Internal QC Validated? YES +Cl - CLEAR BKGD; Pregnancy, Urine Negative Negative
[2017-11-21] VITALS (15 sets, daily range): BP systolic 123–159; BP diastolic 76–97; PULSE 60–74; RESP 16–18; TEMP 36–36.7; O2SAT 95–97
--- NOTE | 2017-11-21 04:00 | EKG12_ITS ---
Test Reason : AM EKG Blood Pressure : / mmHG Vent. Rate : 070 BPM Atrial Rate : 070 BPM P-R Int : 126 ms QRS Dur : 078 ms QT Int : 384 ms P-R-T Axes : 042 033 019 degrees QTc Int : 414 ms Normal sinus rhythm Low voltage QRS Borderline ECG When compared with ECG of 20-NOV-2017 01:20, MANUAL COMPARISON REQUIRED, DATA IS UNCONFIRMED Confirmed by CLOTILDE ESPARZA, GAVI ([id number]), design editor CHANDRAKANT ROBERTS ([id number]) on 11/22/2017 2:49:48 PM Referred By: AZIZA Confirmed By:GAVI MABRY MD
[2017-11-21] MEDS: Metoprolol Tartrate 25 MG Tablet 50 MG PO (05:45)
[2017-11-21] MEDS: Aspirin E.C. 81 MG Tablet PO (05:45)
[2017-11-21] MEDS: 0.9% Normal Saline 1,000 ML 15 ML IV (05:45)
[2017-11-21] MEDS: Clopidogrel Bisulfate 75 MG Tablet PO (05:45)
[2017-11-21 05:53] LABS: Absolute Lymphocyte Count 1.81 X10^3/ul (0.83-4.51); Absolute Neutrophil Count 4.4 X10^3/uL (2.0-7.7); Basophil# 0.03 X10^3/uL; Basophil% 0.4 % (0-1); Eosinophils% 1.5 % (0-5); Hematocrit 34.4 % (37-47); Hemoglobin 10.8 g/dl (12.0-15.0); Lymphocyte # 1.81 X10^3/ul (4.0); Lymphocyte % 26.4 % (19-41); Mean Corp Hgb Conc 31.4 g/gl (32-36); Mean Corpuscular Hgb 24.2 pg (27.0-32.0); Mean Corpuscular Volume 77.1 fL (81-99); Mean Platelet Vol. 11.3 fl (6.2-12.0); Monocyte# 0.51 X10^3/uL; Monocyte% 7.4 % (0-10); Neutrophil # 4.38 X10^3/uL (2.7-7.7); Platelet Count 271 K/mm3 (150-450); RBC Distribution Width CV 17.1 % (11.6-14.6); RBC Distribution Width SD 46.7 fl (35.1-43.9); Red Blood Count 4.46 M/mm3 (4.2-5.4); White Blood Count 6.9 K/mm3 (4.4-11.0)
[2017-11-21 05:54] LABS: Anion Gap 7 (5-15); BUN 12 mg/dL (7-18); BUN/Creat Ratio 18.8 RATIO (10-20); Calcium,Total 8.3 mg/dL (8.5-10.1); Chloride 106 mmol/L (98-107); Creatinine, Serum 0.64 mg/dL (0.55-1.02); EST Glomerular Filtration Rate 105 mL/min (>60); Est Glom Filt Rate - Afr Amer 127 mL/min (>60); Estimated Creatinine Clearance 81.12 ml/min; Glucose 113 mg/dL (74-106); Potassium 4.2 mmol/L (3.5-5.1); Sodium Level 140 mmol/L (136-145)
[2017-11-21 06:10] LABS: Partial Thromboplast Time 30.4 Seconds (24.1-36.2); Prothrombin Time (Protime)PT. 13.2 SECONDS (11.7-14.9)
[2017-11-21 06:20] LABS: POSITIVE COUNT NO; POSITIVE DIFFERENTIAL NO; POSITIVE MORPHOLOGY NO
[2017-11-21] MEDS: Ondansetron 4 MG/2 ML Vial IV (07:02)
[2017-11-21] MEDS: 0.9% NaCl Peripheral Flush Adult/Peds IV (07:02)
--- NOTE | 2017-11-21 08:36 | PN.CARD_ITS ---
Subjectve: The patient is now status post diagnostic cardiac catheterization. She has had no new acute complaints. Objective: Vital Signs Temp Pulse Resp BP Pulse Ox 98.0 F 68 18 145/83 H 97 11/21/17 05:37 11/21/17 06:52 11/21/17 05:37 11/21/17 05:37 11/21/17 05:37 Oxygen Flow Rate (L/min) 2 Oxygen Delivery Method Room Air Weight: 162 lb 7.691 oz Body Mass Index (BMI) 30.7 Intake and Output for Last 24 Hours 11/19/17 11/20/17 11/21/17 23:59 23:59 23:59 Intake Total 3049 / 3049 601 / 601 Balance 3049 / 3049 601 / 601 General: Awake, Alert, Oriented x 3, Cooperative, No Acute Distress HEENT: Atraumatic, Normocephalic, PERRL, EOMI, Sclera Non Icteric Oral: Moist Mucosa Neck: Supple, Good ROM, No JVD Lungs: Clear to auscultation Cardiovascular: Regular Rhythm, Normal S1, Normal S2 Vascular: No Carotid Bruits, Normal Femoral Pulses Abdomen: Bowel Sounds Present, Soft, Non Tender Extremities: No Cyanosis, No Clubbing, No edema Neurological: No Focal Motor or Sensory Deficit 11/20/17 13:10: Troponin I 0.320 H 11/21/17 05:04: WBC 6.9, RBC 4.46, Hgb 10.8 L, Hct 34.4 L, MCV 77.1 L, MCH 24.2 L, MCHC 31.4 L, RDW 17.1 H, RDW Differential 46.7 H, Plt Count 271, MPV 11.3, Immature Gran % (Auto) 0.300, Neut % (Auto) 64.0, Lymph % (Auto) 26.4, [place] % (Auto) 7.4, Eos % (Auto) 1.5, Baso % (Auto) 0.4, Absolute Neuts (auto) 4.4, Total Counted Not Reportable 11/21/17 05:04: PT 13.2, INR 1.0, APTT 30.4 11/21/17 05:04: Sodium 140, Potassium 4.2, Chloride 106, Carbon Dioxide 27.0, Anion Gap 7, BUN 12, Creatinine 0.64, Est GFR (MDRD) Af Amer 127, Est GFR (MDRD) Non-Af 105, BUN/Creatinine Ratio 18.8, Glucose 113 H, Calcium 8.3 L Rhythm: Sinus rhythm EKG: Sinus rhythm; no acute ECG changes ECHO: Pending Cardiac Cath: Please see official report Medical Necessity - Tobacco Use Smoking Status: Current every day smoker Tobacco Use: Cigarettes - 4-5 cigarettes/day, notes she has been cutting down and attempting to quit. Assessment/Plan 1. Paroxysmal supraventricular tachycardia The patient had an episode of paroxysmal supraventricular tachycardia. Based upon the review of the patient's clinical course, her cardiac rhythm strips, her response to IV adenosine, it appears that this is compatible with a reentry mechanism tachydysrhythmia. At the present time she appears to be maintaining sinus rhythm. Her follow-up ECGs have demonstrated no acute ECG changes. She is being treated with beta-leslie therapy. In the future she should be considered for EP evaluation for consideration for EPS/RFA. 2. Non-ST segment elevation [place] The patient has cardiac enzyme findings compatible with a non-ST segment elevation DE. Based upon the patient's diagnostic cardiac catheterization this appears to be a type II supply demand mismatch event. She will continue medical management. This is included aspirin therapy as well as beta-leslie therapy and other medications as deemed appropriate. 3. CAD The patient's diagnostic cardiac catheterization demonstrates, based on coronary angiography, what appears to be minimal luminal irregularities of the LCx and RCA system. Of note, the RCA system does appear to have a somewhat aberrant takeoff from the aorta. It does appear to be patent with no angiographically significant appearing CAD. Based upon the patient's coronary artery anatomy it would not be unreasonable for the patient to be further evaluated, status post clearing her IV contrast, with a future chest CTA or possibly cardiac MRI as further evaluation of a congenital coronary anomaly. The interim she should continue risk factor evaluation and care and medical therapy as deemed appropriate. 4. Tobacco abuse The patient states she is decreasing her tobacco intake. She was told she needed to do so prior to her upcoming gynecologic surgery. This note was generated with [employer] software. It may contain incorrect words, spelling, and punctuation that were not noted in checking the note before signing.
--- NOTE | 2017-11-21 08:50 | CL.D_ITS ---
Patient Name: ISAAC RED Study Date: 11/21/2017 Performing: Rocky Mir MD Ht: 61 inches 155 cm : 1970 Wt: 163.4 lbs 74 kg Age: 47 Gender: female BSA: 1.73 PROCEDURE(S) PERFORMED EW81-CWG/COR/LV DC11-AO ROOT ANGIO WITH HEART CATH CLINICAL PROFILE AND INDICATIONS Indications: ACS <= 24 hrs Heart Failure: None Stress/Imaging Stress/Image Study Performed: No Angina Classification Anginal Classification w/in 2 Weeks: CCS IV CAD Presentations: Non-STEMI. 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 The risks and benefits of the procedure as well as a full d escription of our services here and current unavailability of surgical backup were fully explained to the patient and/or their significant other prior to the catheterization. The Timeout was completed, verifying the correct patient and procedure. The patient's procedural site was prepped and draped in the usual fashion. Local anesthetic was given subcutaneously to right groin region with Lidocaine 2%. Using a modified Seldinger technique, arterial access was obtained via the right femoral artery, a 4 Fr sheath was inserted Left Coronary Artery selective angiography was performed in multiple views us ing a 4 Fr. JL5 catheter. Right Coronary Artery selective angiography was then performed in multiple views using a 4 Fr. 3DRC catheter. Left Ventriculography was performed in JORGENSEN projection using a 4 Fr . Pigtail catheter. LV to AO pullback pressures were then recorded. Ascending (root) aorta selective angiography was then performed in single view. Ascending (root) aorta selective angiography was then performed in single view.The arterial sheath was pulled and manual compression applied until hemostas is is achieved. CORONARY ANGIOGRAPHY DOMINANCE: Co- Dominant LEFT HEART ASSESSMENT Left Ventricular Ejection Fraction: by LV Gram 65 % Normal LV wall motion Elevated Left Ventricular End Diastolic Pressure LVEDP: 24 mmHg LEFT MAIN: Angiographically normal LEFT ANTERIOR DECENDING ARTERY: Angiographically normal CIRCUMFLEX ARTERY: MID CIRC: Mild luminal irregularities RIGHT CORONARY ARTERY: MID RCA: Mild luminal irregularities VALVE FINDINGS: Normal Aortic Valve function Normal Mitral Valve function AORTIC ROOT: Angiographically normal COMPLICATIONS No Complications PROCEDURE MEDICATIONS Versed 1 mg IV Versed 1 mg IV Oxygen: 2 L/min via nasal cannula SUMMARY OF HEMODYNAMIC DATA Time AIR REST ECG 07:24:06 AO 155/86 (113) SA 07:38:27 LV 163/11, 28 08:04:15 LV 169/5, 24 08:04:21 LV 162/3, 22 08:05:26 LVp 169/4, 22 08:05:37 AOp 172/86 (119) 08:05:42 Signed By Rocky Mir MD On 11/21/2017 08:49:15 Rocky Mir MD
[2017-11-21] MEDS: Ferrous Gluconate 325 MG Tablet PO (10:18)
[2017-11-21] MEDS: Famotidine 20 MG Tablet PO (10:18)
--- NOTE | 2017-11-21 12:32 | DCINST_ITS ---
- Discharge Diagnoses Current Active Problems: Current Active and Chronic Problems Tobacco use (Chronic) Obesity (BMI 30.0-34.9) (Chronic) Iron deficiency anemia (Chronic) SVT (supraventricular tachycardia) (Acute) Chest pain (Acute) NSTEMI (non-ST elevated myocardial infarction) (Acute) You will use the following diet at home:: Regular Your food should be the consistency of: Regular Your liquids should be the consistency of: Regular/Thin Discharge Activity: No Restrictions Call your doctor if you observe: Shortness of breath, Dizziness, Fainting spells, Chest pain, Increased palpitations (irregular heartbeat) Allergies/Adverse Reactions: Allergies No Known Allergies Allergy (Verified 11/19/17 22:49) Medications to take at Discharge Ferrous Gluconate 325 mg PO BID 11/19/17 Aspirin E.C. [Ecotrin] 81 mg PO DAILY@0800 #30 tablet 11/21/17 Metoprolol Tartrate [Lopressor (beta leslie)] 50 mg PO BID 30 Days #60 tablet 11/21/17 The following prescriptions were given: Aspirin E.C. [Ecotrin] 81 mg PO DAILY@0800 #30 tablet Metoprolol Tartrate [Lopressor (beta leslie)] 50 mg PO BID 30 Days #60 tablet Primary Care Physician: Cristine Reza [Primary Care Provider] - Test Results: Test results from this visit will be discussed in further detail at your follow- up appointment, if applicable. Please Follow Up With: Rocky Mir MD
--- NOTE | 2017-11-21 12:39 | DS.PCM_ITS ---
Discharge Date and Diagnosis - Problem List Patient Problems: Active and Suspected Problems SVT (supraventricular tachycardia) (Acute) Chest pain (Acute) NSTEMI (non-ST elevated myocardial infarction) (Acute) Date of Admission: 11/20/17 Date of Discharge: 11/21/17 - Primary Discharge Diagnosis Active and Suspected Problems SVT (supraventricular tachycardia) (Acute) Chest pain (Acute) NSTEMI (non-ST elevated myocardial infarction) (Acute) - Secondary Discharge Diagnosis Chronic Problems Tobacco use (Chronic) Obesity (BMI 30.0-34.9) (Chronic) Iron deficiency anemia (Chronic) Hospital Course and Treatment Imaging Results: None Consults: Cardiology Operations: None Procedures: 2-D Echocardiogram, Cardiac catheterization - CONCLUSIONS Elevated Left Ventricular End Diastolic Pressure Normal LV size, wall motion,and systolic function LVEF: by LV gram 65 % 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 (mild luminal irregularities) 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 RECOMMENDATIONS Risk factor modification Medical therapy Consider further c oronary artery anatomic evaluation with Cardiac CTA for congenital coronary anomaly Summary of Care Provided: HPI: The patient is a 47 y/o F w/ PMHx: Tobacco use, Fe Deficiency Anemia, Obesity who presents to the [facility] ED on 11/20/17 with history of at ~ 8:30 pm lightheadedness and dizziness followed by onset 10/10 chest pressure substernally with radiation toward the back between the scapula with sensation of severe indigestion without dizziness with nausea and emesis x 1 with attempt to lay down with mild improvement, noted to change to more dull discomfort then rated 6-7/10 prompting transition to ED. In the ED work-up included T 96, heart rate initially 226--> 98 following interventions, BP initially 96/57--> 114/81, respiratory rate 18, 97% on room air, CBC with WBC 13.5, hemoglobin 13.3, platelet 317 with left shift, BMP with glucose 185, magnesium 1.9, troponin 0 0.025, TSH 3.30, chest x-ray with accessory azygous fissure of the right upper lobe representing an anatomical variant, small calcified granuloma right upper lobe stable in interval with no acute cardiopulmonary disease noted, EKG initially upon presentation with SVT rate [address] depressions V4 to V6 with no elevations with follow-up EKG sinus rate [address] changes and isolated T wave inversion in lead III. In the ED patient administered aspirin, adenosine, metoprolol 25 mg p.o. x1 in addition to normal saline. Following ED transition to sinus rhythm patient noted complete resolution of chest discomfort. Vital Signs - 24 hr Temp Pulse Resp BP Pulse Ox 11/21/17 12:20 97.6 F L 73 16 123/80 H 95 11/21/17 11:40 97.6 F L 65 16 137/86 H 96 11/21/17 11:07 71 11/21/17 10:40 97.2 F L 72 16 133/86 H 96 11/21/17 10:10 97.2 F L 64 16 136/87 H 96 11/21/17 09:40 96.9 F L 67 18 144/97 H 11/21/17 09:25 96.8 F L 68 16 154/85 H 11/21/17 09:10 97.1 F L 68 18 153/76 H 11/21/17 08:55 97.0 F L 60 16 153/89 H 96 11/21/17 08:40 96.9 F L 62 16 159/93 H 96 11/21/17 08:35 71 11/21/17 06:52 68 11/21/17 05:45 74 11/21/17 05:37 98.0 F 74 18 145/83 H 97 11/21/17 02:57 60 11/20/17 23:37 98.0 F 65 18 141/81 H 96 11/20/17 23:00 59 L 11/20/17 21:06 66 144/78 H 11/20/17 21:01 98.0 F 66 18 144/78 H 98 11/20/17 19:00 66 11/20/17 18:10 97.8 F 74 18 139/75 H 97 11/20/17 14:58 71 General: Alert, Oriented x3, Cooperative, No apparent distress HEENT: Atraumatic, PERRLA, EOMI, Normocephalic Oral: Moist Mucosa Neck: Supple, No JVD Lungs: Clear to auscultation, Normal air movement, No rhonchi, No wheeze, No rales Cardiovascular: Regular rate, Regular Rhythm, Normal S1, Normal S2, No murmurs Abdomen: Soft, Non Tender, Non-Distended, No Hepato-splenomegaly Extremities: No edema, Capillary Refill Less than 3 Seconds Skin: No rashes, No breakdown Psych/Mental Status: Normal Affect, Appropriate Hospital Course: 1. SVT with chest pain - She presented with SVT and cardiology was consulted. She was taken for a cardiac cath on the day of discharge which was angiographically normal, her RCA was difficult to visualize and is likely a congenital abnormality and she will need an outpatient CTA as well as a consultation with EP for her SVT. She was started on metoprolol which has controlled her heart rate. She was also started on aspirin and was discharged on both the aspirin and metoprolol. She did have an echo while inpatient however she did not want to stay for the results. She will f/u with cardiology as an outpatient as well her PCP 2. Her other diagnoses were evaluated and her home medications were continued where appropriate. Discharge Activity: No Restrictions Call your doctor if you observe: Shortness of breath, Dizziness, Fainting spells, Chest pain, Increased palpitations (irregular heartbeat) Home Medications: Medications to take at Discharge Ferrous Gluconate 325 mg PO BID 11/19/17 Aspirin E.C. [Ecotrin] 81 mg PO DAILY@0800 #30 tablet 11/21/17 Metoprolol Tartrate [Lopressor (beta leslie)] 50 mg PO BID 30 Days #60 tablet 11/21/17 Following Prescrptions Were Given to Patient: Aspirin E.C. [Ecotrin] 81 mg PO DAILY@0800 #30 tablet Metoprolol Tartrate [Lopressor (beta leslie)] 50 mg PO BID 30 Days #60 tablet Primary Care Physician: Cristine Reza [Primary Care Provider] - Please Follow Up With: Rocky Mir MD Disposition: Home Minutes spent on discharge:: 35 Patient Condition:: Good Medical Necessity - Tobacco Use Smoking Status: Current every day smoker Tobacco Use: Cigarettes - 4-5 cigarettes/day, notes she has been cutting down and attempting to quit. Meaningful Use Info Meaningful Use Diagnoses (Choose all that apply): None applicable Code Visit Inpatient E&M: 79312 Disch Hosp
== END 2017-11-21 15:19 | disposition home or self-care (01) | DRG 121 ==
LOC: ED 11-20 00:28 → PCU 11-20 00:42
PROVIDERS: Internal Medicine Cardiovascular Disease; Admitting Provider Family Medicine; Emergency Provider Emergency Medicine; Visit Provider Family Medicine
DX: I47.1 Supraventricular tachycardia (principal); I21.A1 Myocardial infarction type 2; D50.9 Iron deficiency anemia, unspecified; F17.210 Nicotine dependence, cigarettes, uncomplicated; I25.10 Atherosclerotic heart disease of native coronary artery without angina pectoris; E66.9 Obesity, unspecified; Z68.30 Body mass index [BMI] 30.0-30.9, adult; Q24.5 Malformation of coronary vessels
CPT/HCPCS: 36415; 71045; 80048; 80053; 80061; 81025; 83735; 84443; 84484; 85025; 85027; 85610; 85730; 93005; 93306; 93458; 93567; 97802; 99152; 99153; 99283; 99406; J7030; Q9957; A4216; C1769; C1894; J0153; J2405; Q9967

== ENCOUNTER → 2017-12-23 12:57 | Outpatient (CLI) | payer SELFPAY ==
[2017-12-16 13:31] LABS: Anion Gap 6 (5-15); BUN 11 mg/dL (7-18); BUN/Creat Ratio 13.4 RATIO (10-20); Chloride 105 mmol/L (98-107); Creatinine, Serum 0.82 mg/dL (0.55-1.02); EST Glomerular Filtration Rate 79 mL/min (>60); Est Glom Filt Rate - Afr Amer 95 mL/min (>60); Glucose 90 mg/dL (74-106); Potassium 3.6 mmol/L (3.5-5.1); Sodium Level 141 mmol/L (136-145)
[2017-12-23 13:06] VITALS: BP 104/54; PULSE 75; RESP 14; O2SAT 98; BMI 29.2
--- NOTE | 2017-12-23 13:15 | NURSING ---
PLEASE SEE PAPER CHARTING FOR VITAL SIGNS DURING LOPRESSOR ADMINISTRATION AND D/C.
[2017-12-23 13:27] VITALS: BP 104/54; PULSE 75
[2017-12-23] MEDS: Metoprolol Tartrate 5 MG/5 ML Vial IV ×3 (13:27→13:41)
--- NOTE | 2017-12-23 13:30 | CT_ITS ---
STUDY: CT CHEST WITH T WITHOUT CONTRAST REASON FOR EXAM: Female, 47 years old. Chest pain. This is a chest over read examination. RADIATION DOSAGE (If Supplied By Facility): CTDIvol = ( 17.34 ) mGy, DLP = ( 917.71 ) mGycm TECHNIQUE: Transaxial imaging was performed pre-and post contrast administration of 60mL ml of Isovue 370 contrast material. Individualized dose optimization techniques were used for this CT. COMPARISON: None. FINDINGS: The lungs are normal. There is no demonstrated pleural abnormality. There are calcifications of the coronary arteries. There are multiple small lymph nodes within the mediastinum, which are normal in size and morphology most compatible with reactive lymph hyperplasia. Calcified right hilar lymph nodes. Normal enhanced and unenhanced pulmonary arteries. Normal aorta arch and descending thoracic aorta. There are mild degenerative changes of the thoracic spine. Small hiatal hernia. CT/Limited Chest CT w/CCTA IMPRESSION: Calcified right hilar lymph nodes. Coronary artery calcifications. Electronically Signed: Cale Madison MD at 9:03 EST Tel [phone], Service support ,
[2017-12-23 13:33] VITALS: BP 124/67; PULSE 71
[2017-12-23 13:41] VITALS: BP 113/69; PULSE 73
[2017-12-23 13:54] VITALS: BP 107/69; PULSE 72
--- NOTE | 2017-12-28 09:25 | CCTA.WCONT ---
CCTA w/Cont Coronary Arteries Date of Study:: 12/23/17 Congenital coronary anomaly; chest pain Consent:: Per the patient The patient underwent high resolution CT imaging of the chest on 12/23/2017 with particular attention to the coronary arteries. The images were analyzed for the presence and extent of coronary anomalies as well as coronary artery calcification. The patient was reported as tolerating the procedure well without obvious adverse events. Interpretation: Left main coronary artery: a) Band and otherwise angiographically normal-appearing Left anterior descending coronary artery: a) Proximal mild eccentric nonobstructive calcified plaque and otherwise angiographically normal-appearing Left circumflex coronary artery: a) Codominant appearing vessel with mid mild eccentric nonobstructive soft plaque Right coronary artery: a) Aberrant origin: Appearing to arise above the left coronary artery system and traversing between the aorta and the pulmonary artery in order to arrive at the traditional right coronary artery distribution area b) Codominant appearing vessel with mid mild eccentric nonobstructive soft plaque Aorta: a) Angiographically normal-appearing Pulmonary artery(s): a) No obvious filling defects Aortic valve: a) Tricuspid appearing Mitral Valve: a) Bileaflet appearing Left atrial appendage: a) No obvious filling defects Left ventricle: a) normal left ventricular size, wall motion, and systolic function b) LVEF reported at 54% Coronary calcium score: a) Reported at 3.38 which according to pre-published reference tables would be indicative of minimal plaque burden and significant coronary artery disease being very unlikely This note was generated using a voice recognition system and there may be incorrect words, spelling or punctuation that were not noted when reviewing the office note prior to saving.
== END ==
LOC: CT 12:57
PROVIDERS: Referring Provider Internal Medicine Cardiovascular Disease; Visit Provider Internal Medicine Cardiovascular Disease
DX: I47.1 Supraventricular tachycardia (principal); Q24.9 Congenital malformation of heart, unspecified; I21.4 Non-ST elevation (NSTEMI) myocardial infarction; R07.9 Chest pain, unspecified
CPT/HCPCS: 36415; 75571; 75573; 76380; 80048; Q9967; A4216

== ENCOUNTER → 2018-04-04 11:15 | Outpatient (CLI) | payer MEDICAID, SELFPAY ==
[2017-12-23 13:06] VITALS: BMI 29.2
--- NOTE | 2018-04-04 | EMB_PTH ---
PATIENT: ISAAC RED LOC: [facility] U#:[id number] AGE/SX: 54/F ROOM: RE04/04/[address]: Dr. Angela Abdi MD : 1970 BED: DIS: SPEC #: [id number] RECD: 04/04/18 17:42 STATUS: CAMILA KAM #: [id number] KORY: 04/04/18 00:[address]: Angela Dennis DEPT: SURGICAL PATHOLOGY RECD BY: Gareth Culp ENTERED: 04/05/18 09:22 SP TYPE: ENDOM BX/C JOSR DR: [facility] Tissues: Endometrium, NOS Procedures: Surgery Specimen Level IV HEADER OPERATION: Endometrial biopsy PRE-OP DIAGNOSIS: Irregular bleeding, hyperplasia TISSUE SUBMITTED: Endometrial biopsy MICROSCOPIC DIAGNOSIS Endometrial biopsy: Weakly proliferative endometrium and blood clots. Negative for hyperplasia. SJ:sylwia 04/06/18 COMMENT Please make reference to previous specimen ([id number]) endometrial biopsy with diagnosis of simple hyperplasia without atypia. Clinical correlation and appropriate follow up are necessary. MICROSCOPIC DESCRIPTION Slides are reviewed. GROSS DESCRIPTION Received in fixative is one container labeled with the patient's name and designated EMB. The specimen consists of multiple irregular and elongated fragments of dark red-kitchen soft tissue that in aggregate measure 2.2 x 2 x 0.2 cm. The specimen is totally submitted in one cassette. / AM:sylwia 04/05/18 TC:5 CPT: 86808
== END ==
PROVIDERS: Referring Provider Obstetrics & Gynecology; Visit Provider Obstetrics & Gynecology
DX: N92.6 Irregular menstruation, unspecified (principal); N85.00 Endometrial hyperplasia, unspecified
CPT/HCPCS: 88305

== ENCOUNTER → 2018-06-02 | Outpatient (CLI) | payer MEDICAID, SELFPAY ==
[2018-05-26 10:03] VITALS: BMI 28.9
--- NOTE | 2018-06-02 13:27 | STE_ITS ---
Reason For Study: RCA ANOMOLY Stress Results Protocol: MORGAN Maximum Predicted HR: 172 bpm Target HR: 146 bpm % Maximum Predicted HR: 88 % DurationHeart Rate Stage (mm:ss) (bpm) BP Comment BASELINE 80 118/64 STAGE 1 3:00 112 142/60 STAGE 2 3:00 127 142/72SLIGHT SOB, NO CHEST PAIN STAGE 3 2:46 151 152/50INCREASED SOB AND FATIGUE RECOVERY 102 112/64 Stress Duration: 8:46 mm:ss Maximum Stress HR: 151 bpm METS: 9 Baseline Echocardiogram Findings Stress Echo Wall motion Data Resting WM Intermediate WM Stress WM Resting Wall Motion Wall Motion Stress All segments Normal. All segments Hyperkinetic. Ejection Fraction 55 %. Ejection Fraction 70 %. Stress Results Heart rate response: Appropriate Blood pressure response: Normal resting blood pressure-appropriate response Arrhythmias: None Functional capacity: Good Stopped secondary to: Dyspnea; fatigue. EKG Data Baseline ECG: Normal sinus rhythm. Peak exercise ECG: Somatic/motion artifact with no obvious ECG changes. Symptoms with Stress No complaint of chest discomfort during exercise or recovery. Interpretation Summary Negative (adequate) stress echocardiogram Ordering Physician: Chaitanya Santillan Referring Physician: Chaitanya Santillan Performed By: Leanne Lima RDCS
== END | disposition home or self-care (01) ==
PROVIDERS: Referring Provider Nurse Practitioner Family; Visit Provider Nurse Practitioner Family
DX: Q24.5 Malformation of coronary vessels (principal); R06.09 Other forms of dyspnea
CPT/HCPCS: 93017; 93350

== ENCOUNTER → 2019-07-20 09:44 | Outpatient (CLI) | payer MEDICAID, SELFPAY ==
[2018-05-26 10:03] VITALS: BMI 28.9
--- NOTE | 2019-07-20 09:50 | EKG12_ITS ---
Test Reason : PALPS Blood Pressure : / mmHG Vent. Rate : 074 BPM Atrial Rate : 074 BPM P-R Int : 120 ms QRS Dur : 084 ms QT Int : 376 ms P-R-T Axes : 065 048 053 degrees QTc Int : 417 ms Normal sinus rhythm Normal ECG Confirmed by SAMEER THOMASON ([id number]), industrial editor CHANDRAKANT ROBERTS ([id number]) on 07/23/2019 11:13:10 AM Referred By: Katalina Hsieh Confirmed By:SAMEER THOMASON
--- NOTE | 2019-07-20 09:50 | ECHOD_ITS ---
Reason For Study: Congenital heart malformation Procedure This was a 2D Doppler, Color Flow transthoracic echocardiogram. Exam performed in department. Left Ventricle Normal size and thickness. The estimated ejection fraction is 65 %. Stage 1 diastolic dysfunction. No regional wall motion abnormalities noted. Right Ventricle Normal size and thickness. Normal systolic function. Atria Normal left atrium. Normal right atrium. Normal atrial septum. Mitral Valve The mitral valve is structurally normal. No prolapse or stenosis seen. Tricuspid Valve Normal tricuspid valve. Trivial tricuspid valve insufficiency. Right ventricular systolic pressure estimated to be 25 mmHg. Aortic Valve Normal aortic valve. Trisinus/trileaflet aortic valve. Pulmonic Valve Normal pulmonic valve. Great Vessels Normal aortic root. Normal arch. Normal inferior vena cava. Inferior vena cava collapse with sniff. Pericardium/Pleural No pericardial effusion. MMode/2D Measurements & Calculations LVIDd: 4.6 cm IVSd: 0.89 cm Ao root diam: 2.9 cm LVIDs: 3.0 cm LVPWd: 0.96 cm RVDd: 2.9 cm FS: 35.0 % LAV(MOD-bp): 44.5 ml LVAd ap4: 28.8 cm2 SV(MOD-sp4): 48.1 ml LAV(MOD-bp) Indexed: 26.7 ml/m2 EDV(MOD-sp4): 86.1 ml LAV(MOD-sp2): 44.9 ml EDV(sp4-el): 86.8 ml LAV(MOD-sp4): 41.3 ml LVAs ap4: 17.4 cm2 ESV(MOD-sp4): 37.9 ml ESV(sp4-el): 37.9 ml EF(MOD-sp4): 55.9 % EF(sp4-el): 56.3 % SV(sp4-el): 48.9 ml LA A4 area: 15.8 cm2 LA dimension(2D): 3.2 cm RA A4 area: 13.3 cm2 Doppler Measurements & Calculations MV E max russ: 85.3 cm/sec Lat Peak E' Russ: 9.1 cm/sec Med Peak E' Russ: 7.7 cm/sec MV A max russ: 88.0 cm/sec E/E' lat: 9.4 E/E' med: 11.1 MV E/A: 0.97 Ao V2 max: 133.8 cm/sec LV V1 max: 110.4 cm/sec PA V2 max: 77.6 cm/sec Ao max P.2 mmHg LV V1 max P.9 mmHg TR max russ: 226.0 cm/sec TR max P.4 mmHg Interpretation Summary The estimated ejection fraction is 65 %. Stage 1 diastolic dysfunction. Trivial tricuspid valve insufficiency. Right ventricular systolic pressure estimated to be 25 mmHg. Compared to echo report dated 11/21/2017 no appreciable changes noted. Ordering Physician: Katalina Hsieh Referring Physician: Katalina Hsieh Performed By: Leanne Lima RDCS
== END ==
PROVIDERS: Referring Provider Nurse Practitioner Family; Visit Provider Nurse Practitioner Family
DX: Q24.9 Congenital malformation of heart, unspecified (principal)
CPT/HCPCS: 93005; 93306

== ENCOUNTER → 2020-01-09 09:53 | Outpatient (CLI) | payer MEDICAID, SELFPAY ==
[2018-05-26 10:03] VITALS: BMI 28.9
[2020-01-09 11:29] LABS: Absolute Lymphocyte Count 2.07 X10^3/uL (0.83-4.51); Absolute Neutrophil Count 5.6 X10^3/uL (2.0-7.7); Basophil# 0.05 X10^3/uL; Basophil% 0.6 % (0-1); Eosinophil# 0.13 X10^3/uL; Eosinophils% 1.5 % (0-5); Hematocrit 46.1 % (37-47); Lymphocyte # 2.07 X10^3/ul (4.0); Lymphocyte % 24.6 % (19-41); Mean Corp Hgb Conc 30.4 g/dL (32-36); Mean Corpuscular Hgb 24.3 pg (27.0-32.0); Mean Platelet Vol. 11.1 fl (6.2-12.0); Monocyte# 0.55 X10^3/uL; Monocyte% 6.5 % (0-10); NRBC Flagged by Analyzer 0 % (0-5); Neutrophil # 5.59 X10^3/uL (2.7-7.7); Neutrophil % 66.7 % (47-70); Platelet Count 290 K/mm3 (150-450); RBC Distribution Width CV 14.1 % (11.6-14.6); RBC Distribution Width SD 41.2 fl (35.1-43.9); Red Blood Count 5.76 M/mm3 (4.2-5.4); White Blood Count 8.4 K/mm3 (4.4-11.0)
[2020-01-09 12:16] LABS: ALB/GLOB Ratio 0.8 RATIO (0.9-2.4); AST(SGOT) 11 U/L (15-37); Alanine Aminotransfer ALT/SGPT 26 U/L (13-56); Albumin, Serum 3.7 g/dL (3.2-5.0); Alkaline Phosphatase 67 U/L (45-117); Anion Gap 5 (5-15); BUN 15 mg/dL (7-18); BUN/Creat Ratio 18.7 RATIO (10-20); Calcium,Total 9.2 mg/dL (8.5-10.1); Chloride 103 mmol/L (98-107); Cholesterol 174 mg/dL (200); EST Glomerular Filtration Rate 80 mL/min (>60); Est Glom Filt Rate - Afr Amer 97 mL/min (>60); Ferritin 44 ng/mL (8-252); Globulin 4.5 g/dL (2.2-4.2); Glucose 83 mg/dL (74-106); High Density Lipoprotein 43 mg/dL; Iron Binding Capacity,Total 337 ug/dL (250-450); Potassium 3.9 mmol/L (3.5-5.1); Protein, Total 8.2 g/dL (6.4-8.2); Sodium Level 138 mmol/L (136-145); Triglycerides 85 mg/dL; Very Low Density Lipoprotein 17 mg/dL (5-40)
[2020-01-10 05:34] LABS: Transferrin 266 mg/dL (192-364)
== END ==
DX: D50.9 Iron deficiency anemia, unspecified (principal); E55.9 Vitamin D deficiency, unspecified; I47.1 Supraventricular tachycardia
CPT/HCPCS: 36415; 80053; 80061; 82728; 83550; 84466; 85025

== ENCOUNTER → 2020-04-17 14:28 | Outpatient (CLI) | payer MEDICAID, SELFPAY ==
[2018-05-26 10:03] VITALS: BMI 28.9
[2020-04-17 15:23] LABS: Absolute Lymphocyte Count 2.47 X10^3/uL (0.83-4.51); Basophil# 0.04 X10^3/uL; Basophil% 0.4 % (0-1); Eosinophil# 0.13 X10^3/uL; Eosinophils% 1.3 % (0-5); Hematocrit 44.7 % (37-47); Hemoglobin 13.9 g/dL (12.0-15.0); Lymphocyte # 2.47 X10^3/ul (4.0); Mean Corp Hgb Conc 31.1 g/dL (32-36); Mean Corpuscular Hgb 24.3 pg (27.0-32.0); Mean Platelet Vol. 10.6 fl (6.2-12.0); Monocyte# 0.64 X10^3/uL; Monocyte% 6.2 % (0-10); NRBC Flagged by Analyzer 0 % (0-5); Neutrophil # 6.97 X10^3/uL (2.7-7.7); Neutrophil % 67.7 % (47-70); Platelet Count 311 K/mm3 (150-450); RBC Distribution Width CV 14.4 % (11.6-14.6); RBC Distribution Width SD 40.1 fl (35.1-43.9); Red Blood Count 5.73 M/mm3 (4.2-5.4); White Blood Count 10.3 K/mm3 (4.4-11.0)
[2020-04-17 16:07] LABS: ALB/GLOB Ratio 0.8 RATIO (0.9-2.4); AST(SGOT) 11 U/L (15-37); Alanine Aminotransfer ALT/SGPT 24 U/L (13-56); Albumin, Serum 3.6 g/dL (3.2-5.0); Alkaline Phosphatase 64 U/L (45-117); Anion Gap 4 (5-15); BUN 15 mg/dL (7-18); Calcium,Total 9.2 mg/dL (8.5-10.1); Chloride 101 mmol/L (98-107); Cholesterol 154 mg/dL (200); Creatinine, Serum 0.88 mg/dL (0.55-1.02); EST Glomerular Filtration Rate 72 mL/min (>60); Est Glom Filt Rate - Afr Amer 87 mL/min (>60); Ferritin 57 ng/mL (8-252); Globulin 4.5 g/dL (2.2-4.2); Glucose 85 mg/dL (74-106); High Density Lipoprotein 39 mg/dL; Iron Binding Capacity,Total 354 ug/dL (250-450); Potassium 3.9 mmol/L (3.5-5.1); Protein, Total 8.1 g/dL (6.4-8.2); Sodium Level 135 mmol/L (136-145); T4 Free Direct 0.84 ng/dL (0.76-1.46); Thyroid Stim Hormone (TSH) 1.71 uIU/mL (0.358-3.74); Triglycerides 67 mg/dL; Very Low Density Lipoprotein 13 mg/dL (5-40)
[2020-04-19 09:19] LABS: Transferrin 271 mg/dL (192-364)
== END ==
PROVIDERS: Referring Provider Family Medicine
DX: D50.9 Iron deficiency anemia, unspecified (principal); E55.9 Vitamin D deficiency, unspecified; I47.1 Supraventricular tachycardia
CPT/HCPCS: 80053; 80061; 82728; 83550; 84439; 84443; 84466; 85025

== ENCOUNTER 2020-06-27 10:17 | Emergency (ER) | payer MEDICAID, SELFPAY ==
[2018-05-26 10:03] VITALS: BMI 28.9
[2020-06-27 10:18] VITALS: BP 150/90; PULSE 87; RESP 18; TEMP 36.6; O2SAT 98; BMI 27.4
--- NOTE | 2020-06-27 10:27 | ED.RN ---
pt was at work and when tried to drink through straw and eat breakfast sandwich on break felt that unable to form around straw and had to force mouth open to eat. symptoms resolved after 30-60min. rt hand feels a little weaker now. pt unhappy to be at er now but family brought in.
[2020-06-27 10:32] VITALS: BP 160/100; PULSE 84; RESP 18; O2SAT 100
--- NOTE | 2020-06-27 10:32 | CT_ITS ---
We are attempting to reach an attending provider to discuss findings. An addendum with communication details will be sent when the communication is complete. STUDY: CT HEAD STROKE PROTOCOL W/O CONTRAST INJECTION REASON FOR EXAM: Female, 49 years old. Neuro deficit, acute, stroke suspected RADIATION DOSAGE (If Supplied By Facility): CTDIvol = ( ) mGy, DLP = ( ) mGycm TECHNIQUE: Transaxial CT imaging of the brain was performed without administration of intravenous contrast material. Individualized dose optimization techniques were used for this CT. COMPARISON: No relevant priors. FINDINGS: Normal soft tissue structures. Normal calvarium. Normal size ventricles and extra-axial spaces for the patient''s age. Normal white matter tracts of the cerebral hemispheres. Normal basal ganglia and thalami. Normal brainstem. Normal cerebellum. There is no intracranial hemorrhage. There are no findings of an acute ischemic infarction. Normal visualized paranasal sinuses. ASPECT score: 10 CT/STROKE Brain/Head without Cont IMPRESSION: Normal unenhanced CT scan of the brain. Electronically Signed: Jed Moe MD at 12:11 EDT , Service support ,
--- NOTE | 2020-06-27 10:32 | RAD_ITS ---
STUDY: X-RAY CHEST REASON FOR EXAM: Female, 49 years old. Neuro deficit, acute, stroke suspected TECHNIQUE: Single AP portable view of the chest. COMPARISON: Comparison is made with prior study dated 11/19/2014. FINDINGS: EKG electrode are seen. The lungs are clear and expanded. Azygos lobe. There is no demonstrated pleural abnormality. Normal size heart. Normal mediastinum and hernan. Normal visualized pulmonary arteries. Normal visualized aortic arch and descending thoracic aorta. Normal visualized thoracic spine. Normal visualized ribs, clavicles, and shoulders. There is no demonstrated abnormality of the visualized soft tissue structures of the upper abdomen. RAD/Chest 1 View IMPRESSION: Normal x-ray examination of the chest. Electronically Signed: Cale Madison MD at 12:18 EDT , Service support ,
--- NOTE | 2020-06-27 10:32 | EKG12_ITS ---
Test Reason : NEURO S/SX Blood Pressure : / mmHG Vent. Rate : 077 BPM Atrial Rate : 077 BPM P-R Int : 126 ms QRS Dur : 088 ms QT Int : 372 ms P-R-T Axes : 041 022 038 degrees QTc Int : 420 ms Normal sinus rhythm Normal ECG Confirmed by CLOTILDE ESPARZA, GAVI ([id number]), photographic editor ABELINO ESTEBAN ([id number]) on 06/30/2020 12:49:14 PM Referred By: CLAUDIA Confirmed By:GAVI MABRY MD
--- NOTE | 2020-06-27 10:33 | CT_ITS ---
STUDY: CTA HEAD AND NECK WITH CONTRAST REASON FOR EXAM: Female, 49 years old. Neuro deficit, acute, stroke suspected RADIATION DOSAGE (If Supplied By Facility): CTDIvol = ( 12.32 ) mGy, DLP = ( 588.35 ) mGycm TECHNIQUE: CT angiography was performed with a multi-detector CT scanner. Data acquisition was obtained from the skull base through the vertex following intravenous administration of 100mL Isovue-370. MIP images were reconstructed from the axial data set. Post-processing of the angiographic images was performed, with multiplanar reformation and 3D reconstruction. Individualized dose optimization techniques were used for this CT. COMPARISON: No relevant priors. FINDINGS: Normal bilateral petrous carotid arteries. Normal right cavernous carotid artery with a normal supraclinoid bifurcation. Normal left cavernous carotid artery with a normal supraclinoid bifurcation. Normal right A1 segments of the anterior cerebral artery. Normal left A1 segments of the anterior cerebral artery. Normal intact anterior communicating artery (ACOM). Normal bilateral A2 segments of the anterior cerebral arteries. Normal right M1 and M2 segments of the middle cerebral arteries, with a normal M1 bifurcation. Normal left M1 and M2 segments of the middle cerebral arteries, with a normal M1 bifurcation. Normal right posterior communicating artery (PCOM). Normal left posterior communicating artery (PCOM). There is a small right vertebral artery with a dominant left vertebral artery. Normal basilar artery with a normal basilar bifurcation. The visualized bilateral superior cerebellar (SCA) arteries are normal. Normal bilateral P1, P2 and visualized P3 segments of the posterior cerebral arteries. There is no demonstrated aneurysm of the pilot point of [place]. There is no demonstrated abnormality of the visualized brain. AORTIC ARCH: Normal visualized aortic arch. Normal origins of the brachiocephalic, left common carotid, and left subclavian arteries. RIGHT CAROTID ARTERIES: Normal right common carotid artery (CCA). Normal right common carotid bulb. Normal origin of the right internal carotid (ICA) artery without a hemodynamically significant stenosis. Normal visualized cervical portion of the right internal carotid artery. Normal origin of the right external carotid artery (ECA). LEFT CAROTID ARTERIES: Normal left common carotid artery (CCA). Normal left common carotid bulb. Normal origin of the left internal carotid (ICA) artery without a hemodynamically significant stenosis. Normal visualized cervical portion of the left internal carotid artery. Normal origin of the left external carotid artery (ECA). VERTEBRAL ARTERIES: There is enhancement within the bilateral vertebral arteries with a small right vertebral artery, and a dominant left vertebral artery. CT/STROKE CTA Head AND Neck W/Con IMPRESSION: Normal CTA Head and neck with contrast. N.B. : The above information has been verbally conveyed by Jed Moe MD to Ted Kennedy on 06/27/2020 12:10:22 (ET). Electronically Signed: Jed Moe MD at 12:16 EDT , Service support ,
--- NOTE | 2020-06-27 10:34 | EDS_ITS ---
HPI History of Present Illness Chief Complaint: Neuro S/Sx Informant: patient Narrative Narrative: 49-year-old female presents the emergency department with change in neurologic symptoms. She tells me that she was at work about 831 to take a bite of a sandwich but did not feel that her mouth was working right. She had difficulty drinking from a straw. She states she looked in the mirror did not see any facial droop. She noted a numb-like sensation in the periorall region. She had some twitching of her right eye which is not new. She states that her right arm did not have a strong tail sawyer with it. [place] when her daughter picked her up her daughter stated she seemed like she had some slurred speech. She states all of her symptoms have now resolved but she still cannot make a strong fist as well as the left. No headache or visual symptoms. No leg symptoms. No chest pain. She currently takes no medications. She does have a history of SVT that has been worked up. PFSH PFS Medical History Anomalous origin of right coronary artery Chest pain Congenital heart disease Iron deficiency anemia NSTEMI (non-ST elevated myocardial infarction) Old myocardial infarction SVT (supraventricular tachycardia) Tobacco abuse Tobacco use Allergy/AdvReac Type Severity Reaction Status Date / Time No Known Allergies Allergy Verified 06/27/20 10:18 Family History (Updated 05/26/18 @ 10:13 by Yara Jaquez) Father Diabetes Myocardial infarction CAD (coronary artery disease) CABG Mother Diabetes Myocardial infarction Grandfather CVA (cerebral vascular accident) Sister , age 45 Colon cancer Brother Kidney disease on dialysis Surgical History History of left heart catheterization (~2018) History of tubal ligation Social History Smoking Status: Current every day smoker alcohol intake: never substance use type: does not use caffeine: Yes Type: carbonated beverages Number of servings: 4 ROS ROS ED Constitutional Constitutional ED: Denies chills or weight loss Eyes Eyes: Denies change in vision or diplopia ENT ENT ED: Denies ear pain, rhinorrhea or sore throat Cardiovascular Cardiovascular: Denies chest pain, orthopnea, palpitations or racing heartbeat Respiratory/Chest Respiratory/Chest: Denies cough, dyspnea or orthopnea Gastrointestinal Gastrointestinal: Denies abdominal pain, diarrhea, nausea or vomiting Genitourinary Genitourinary ED: Denies dysuria, hematuria or urinary frequency Musculoskeletal Musculoskeletal: Denies arthralgias or myalgias Integumentary Denies abscess or rash Neurologic Neurologic: Reports paresthesias and weakness; Denies headache(s) Psychiatric Psychiatric: Denies anxiety, depression, suicidal ideation or suicidal thoughts Endocrine Endocrinology: Denies polydipsia, polyphagia or polyuria Allergic/Immunologic Allergic/Immunologic ED: Denies mouth swelling, tongue swelling or urticaria EXAM Physical Exam Const Vital Signs: 06/27/20 10:18 06/27/20 10:32 06/27/20 10:46 Temperature 97.9 F Temperature Source Temporal Pulse Rate 87 84 84 Respiratory Rate 18 18 18 Blood Pressure 150/90 H 160/100 H 160/100 H Blood Pressure Mean 110 120 120 Pulse Ox 98 100 98 Oxygen Delivery Method Room Air Room Air Room Air 06/27/20 11:55 Temperature Temperature Source Pulse Rate 74 Respiratory Rate 16 Blood Pressure 152/88 H Blood Pressure Mean 109 Pulse Ox 99 Oxygen Delivery Method Room Air Positive well nourished and well developed General Appearance ED: well developed HEENT Reports normocephalic, head/scalp atraumatic and moist mucous membranes Eyes PERRL and EOMs intact bilaterally Neck no lymphadenopathy, supple and no JVD Resp normal respiratory effort and clear to auscultation bilaterally Cardio regular rate, regular rhythm and no murmurs GI normal to inspection, nondistended, normoactive bowel sounds and non-tender Palpation: soft Back/Spine no CVA tenderness and normal ROM Extremity normal to inspection General Extremety ED: Negative for edema General Extremity: Negative for edema Neuro oriented x3 and CN's II-XII intact bilaterally Sensorium / Orientation: alert Motor Exam: strength 5/5 throughout Psych mental status grossly normal Mood & Affect: Negative for depressed or tearful Skin no rashes or lesions noted and no wounds MDM MDM MDM Narrative Medical decision making narrative: My interpretation of the patient's single view portable chest x-ray is no acute process patient's emergency department work-up is negative. She states her tail sawyer has improved but she notes that she cannot whistle. My recommendation is that the patient be admitted for further work-up and the patient declines. She states she does not wish to stay in the hospital all weekend. She appears to have the capacity to make this decision. I am recommending to her that she follow-up with her doctor soon as possible for MRI echocardiogram and that she begun a aspirin today. Lab Data Attestation: I reviewed the patient's lab results. Labs: Laboratory Results - last 24 hr 06/27/20 06/27/20 06/27/20 10:40 10:40 10:40 WBC 8.7 RBC 5.27 Hgb 13.1 Hct 41.3 MCV 78.4 L MCH 24.9 L MCHC 31.7 L RDW Std Deviation 40.0 RDW Coeff of Bonita 14.1 Plt Count 272 MPV 10.2 Immature Gran % (Auto) 0.200 Neut % (Auto) 62.0 Lymph % (Auto) 30.0 Cloud % (Auto) 5.8 Eos % (Auto) 1.7 Baso % (Auto) 0.3 Absolute Neuts (auto) 5.4 Absolute Lymphs (auto) 2.62 Nucleated RBC % 0 PT 12.7 INR 1.0 APTT 28.2 Sodium 137 Potassium 3.6 Chloride 103 Carbon Dioxide 31.0 Anion Gap 3 L BUN 15 Creatinine 0.90 Estim Creat Clear Calc 59.15 Est GFR (MDRD) Af Amer 85 Est GFR (MDRD) Non-Af 70 BUN/Creatinine Ratio 16.6 Glucose 139 H Calcium 9.1 Troponin I < 0.015 POC Glucose 06/27/20 10:42 WBC RBC Hgb Hct MCV MCH MCHC RDW Std Deviation RDW Coeff of Bonita Plt Count MPV Immature Gran % (Auto) Neut % (Auto) Lymph % (Auto) Cloud % (Auto) Eos % (Auto) Baso % (Auto) Absolute Neuts (auto) Absolute Lymphs (auto) Nucleated RBC % PT INR APTT Sodium Potassium Chloride Carbon Dioxide Anion Gap BUN Creatinine Estim Creat Clear Calc Est GFR (MDRD) Af Amer Est GFR (MDRD) Non-Af BUN/Creatinine Ratio Glucose Calcium Troponin I POC Glucose 153 H Radiography Diagnostic Testing: Radiology Impression Brain CT 06/27/20 10:32 IMPRESSION: Normal unenhanced CT scan of the brain. Electronically Signed: Jed Moe MD at 12:11 EDT , Service support , ADDENDUM: 06/27/20 1218 IMPRESSION: Normal unenhanced CT scan of the brain. N.B. : The above information has been verbally conveyed by Jed Moe MD to Ted Kennedy MD, on 06/27/2020 12:11:35 (ET). Electronically Signed: Jed Moe MD at 12:11 EDT , Service support , Chest X-Ray 06/27/20 10:32 IMPRESSION: Normal x-ray examination of the chest. Electronically Signed: Cale Madison MD at 12:18 EDT , Service support , Head/Neck CTA 06/27/20 10:33 IMPRESSION: Normal CTA Head and neck with contrast. N.B. : The above information has been verbally conveyed by Jed Moe MD to Ted Kennedy on 06/27/2020 12:10:22 (ET). Electronically Signed: Jed Moe MD at 12:16 EDT , Service support , ADDENDUM: 06/27/20 1223 IMPRESSION: Normal CTA Head and neck with contrast. N.B. : The above information has been verbally conveyed by Jed Moe MD to Ted Kennedy on 06/27/2020 12:10:22 (ET). Electronically Signed: Jed Moe MD at 12:16 EDT , Service support , EKG Initial EKG: Attestation: I personally reviewed and interpreted this EKG as follows: Comments: EKG demonstrates a normal sinus rhythm at a rate of 77 without concerning features of ACS or ectopy. Discharge Plan Triage Chief Complaint: Neuro S/Sx ED Provider: Ted Kennedy Dx/Rx/DC Orders Clinical Impression: Brain TIA Instructions: ED TIA: Transient Ischemic Attack Primary Care Provider: [facility] Cristine Li Referrals: [facility] Cristine Li [Primary Care Provider] - As soon as possible Activity Restrictions/Additional Instructions: I would recommend that you begin an aspirin a day again. Please see your doctor soon as possible. You need further work-up including MRI and echocardiogram. You may return to the emergency department for worsening symptoms or admission if you would like. Disposition Disposition: Against Medical Advice Capacity Capacity Assessment Tool Can the patient make a choice & communicate that choice?: Yes Can the patient understand benefits, risks and alternatives?: Yes Can the patient make a logical, rational choice?: Yes Is the choice the patient makes consistent w/ their values?: Yes Is there an impending, emergent risk to the patient?: Comment (At high risk for stroke) Does the patient have an Advance Directive?: No Is there a Surrogate Available?: No i.e. HCPOA: No i.e. close relative (spouse, child, parent, sibling)?: No
[2020-06-27 10:45] LABS: Bedside Glucose 153 mg/dL (70-110)
[2020-06-27 10:46] VITALS: BP 160/100; PULSE 84; RESP 18; O2SAT 98
[2020-06-27 10:49] LABS: Absolute Lymphocyte Count 2.62 X10^3/uL (0.83-4.51); Absolute Neutrophil Count 5.4 X10^3/uL (2.0-7.7); Basophil# 0.03 X10^3/uL; Basophil% 0.3 % (0-1); Eosinophil# 0.15 X10^3/uL; Eosinophils% 1.7 % (0-5); Hematocrit 41.3 % (37-47); Hemoglobin 13.1 g/dL (12.0-15.0); Lymphocyte # 2.62 X10^3/ul (0.83-4.51); Mean Corp Hgb Conc 31.7 g/dL (32-36); Mean Corpuscular Hgb 24.9 pg (27.0-32.0); Mean Corpuscular Volume 78.4 fL (81-99); Mean Platelet Vol. 10.2 fl (6.2-12.0); Monocyte# 0.51 X10^3/uL; Monocyte% 5.8 % (0-10); NRBC Flagged by Analyzer 0 % (0-5); Platelet Count 272 K/mm3 (150-450); RBC Distribution Width CV 14.1 % (11.6-14.6); Red Blood Count 5.27 M/mm3 (4.2-5.4); White Blood Count 8.7 K/mm3 (4.4-11.0)
[2020-06-27 11:01] LABS: Partial Thromboplast Time 28.2 Seconds (24.1-36.2); Prothrombin Time (Protime)PT. 12.7 SECONDS (11.7-14.9)
[2020-06-27 11:06] LABS: Anion Gap 3 (5-15); BUN 15 mg/dL (7-18); BUN/Creat Ratio 16.6 RATIO (10-20); Calcium,Total 9.1 mg/dL (8.5-10.1); Chloride 103 mmol/L (98-107); EST Glomerular Filtration Rate 70 mL/min (>60); Est Glom Filt Rate - Afr Amer 85 mL/min (>60); Estimated Creatinine Clearance 59.15 ml/min; Glucose 139 mg/dL (74-106); Potassium 3.6 mmol/L (3.5-5.1); Sodium Level 137 mmol/L (136-145)
[2020-06-27 11:55] VITALS: BP 152/88; PULSE 74; RESP 16; O2SAT 99
[2020-06-27 12:40] VITALS: BP 148/91; PULSE 78; RESP 16; O2SAT 97
== END 2020-06-27 12:49 | disposition left against medical advice (07) ==
PROVIDERS: Emergency Provider Emergency Medicine
DX: G45.9 Transient cerebral ischemic attack, unspecified (principal); F17.200 Nicotine dependence, unspecified, uncomplicated; I25.10 Atherosclerotic heart disease of native coronary artery without angina pectoris; Z85.038 Personal history of other malignant neoplasm of large intestine; Z98.51 Tubal ligation status
CPT/HCPCS: 70450; 70496; 70498; 71045; 80048; 82962; 84484; 85025; 85610; 85730; 93005; 99284; Q9967

== ENCOUNTER 2022-03-21 15:41 | Emergency (ER) | payer MEDICAID, SELFPAY ==
[2022-03-21 15:44] VITALS: BP 106/56; PULSE 230; RESP 20; TEMP 36.4; O2SAT 99; BMI 29.3
[2022-03-21 15:45] VITALS: BP 91/77; PULSE 230; RESP 32; O2SAT 98
[2022-03-21] MEDS: Adenosine 6 MG/2 ML Syringe IV (15:48)
--- NOTE | 2022-03-21 15:50 | EKG12_ITS ---
Test Reason : REPEAT Blood Pressure : / mmHG Vent. Rate : 103 BPM Atrial Rate : 103 BPM P-R Int : 094 ms QRS Dur : 082 ms QT Int : 354 ms P-R-T Axes : 024 029 033 degrees QTc Int : 463 ms Sinus tachycardia with short MO Nonspecific ST abnormality Abnormal ECG Confirmed by CLOTILDE ESPARZA, GAVI ([id number]), website/blog editor ABELINO ESTEBAN ([id number]) on 03/22/2022 10:15:50 AM Referred By: Confirmed By:GAVI MABRY MD
[2022-03-21] MEDS: Ondansetron 4 MG/2 ML Vial IV (15:52)
--- NOTE | 2022-03-21 15:52 | EKG12_ITS ---
Test Reason : TACHYCARDIA Blood Pressure : / mmHG Vent. Rate : 229 BPM Atrial Rate : 000 BPM P-R Int : 000 ms QRS Dur : 190 ms QT Int : 186 ms P-R-T Axes : 000 034 000 degrees QTc Int : 363 ms Narrow tachycardia Non-specific intra-ventricular conduction block Minimal voltage criteria for LVH, may be normal variant ( Olayinka product ) Cannot rule out Septal infarct , age undetermined Abnormal ECG Confirmed by CLOTILDE ESPARZA, GAVI ([id number]), supervising editor news reel ABELINO ESTEBAN ([id number]) on 03/22/2022 10:15:38 AM Referred By: JELANI Confirmed By:GAVI MABRY MD
[2022-03-21 15:53] VITALS: BP 110/79; PULSE 105; RESP 19; O2SAT 98
[2022-03-21] MEDS: 0.9% Normal Saline 1,000 ML 150 ML IV (15:54)
--- NOTE | 2022-03-21 15:54 | EDS_ITS ---
HPI History of Present Illness Chief Complaint: Chest Pain Detail of Chief Complaint: Chest discomfort and not feeling well times half an hour Informant: patient Narrative Narrative: Patient presents the emergency department stating that she was doing some cleaning half an hour ago when she started having chest discomfort and did not feel well. Patient feels somewhat short of breath and has some nausea. When asked if she is ever felt this way before she states that yes she has a history of SVT. Patient states that she used to be on metoprolol but stopped taking it. Her last episode requiring treatment was 5 years ago. Patient denies recent travel or surgery. She has no heart history otherwise. She cannot tell me who her veterinary technician assistant was and states she has not seen them in over 5 years. Patient denies recent illness. She is never had an ablation. Prior Similar Symptoms: Yes PFSH PFSH Medical History Anomalous origin of right coronary artery Chest pain Congenital heart disease Iron deficiency anemia NSTEMI (non-ST elevated myocardial infarction) Old myocardial infarction SVT (supraventricular tachycardia) Tobacco abuse Tobacco use Home Medications diltiazem HCl 120 mg capsule,extended release 24 hr (Cardizem CD) 120 mg PO DAILY #30 caps 03/21/22 [Rx Last Taken Unknown] Allergy/AdvReac Type Severity Reaction Status Date / Time No Known Allergies Allergy Verified 06/27/20 10:18 Family History (Updated 05/26/18 @ 10:13 by Yara Jaquez) Father Diabetes Myocardial infarction CAD (coronary artery disease) CABG Mother Diabetes Myocardial infarction Grandfather CVA (cerebral vascular accident) Sister , age 45 Colon cancer Brother Kidney disease on dialysis Surgical History History of left heart catheterization (~2018) History of tubal ligation Social History Smoking Status: Current every day smoker tobacco type: cigarettes alcohol intake: never substance use type: does not use caffeine: Yes Type: carbonated beverages Number of servings: 4 ROS ROS ED Review of Systems ROS Unobtainable: other Constitutional Constitutional ED: Reports lethargy; Denies chills, fever(s), sweats or weight loss Eyes Eyes: Denies blurry vision, change in vision or diplopia ENT ENT ED: Denies rhinorrhea or sore throat Cardiovascular Cardiovascular: Reports chest pain and racing heartbeat; Denies orthopnea Respiratory/Chest Respiratory/Chest: Reports dyspnea; Denies cough, dyspnea on exertion, orthopnea or sputum Gastrointestinal Gastrointestinal: Denies abdominal pain, diarrhea, nausea or vomiting Genitourinary Genitourinary ED: Denies dysuria, hematuria or urinary frequency Musculoskeletal Musculoskeletal: Denies arthralgias, back pain, myalgias or neck pain Integumentary Denies abscess, Abrasions or rash Neurologic Neurologic: Denies headache(s) or weakness Psychiatric Psychiatric: Denies anxiety, depression or suicidal thoughts Endocrine Endocrinology: Denies polydipsia, polyphagia or polyuria Hematologic/Lymphatic Hematologic/Lymphatic: Denies easy bleeding, easy bruising or lymphadenopathy Allergic/Immunologic Allergic/Immunologic ED: Denies mouth swelling, tongue swelling or urticaria EXAM Physical Exam Const Vital Signs: 03/21/22 15:44 03/21/22 15:45 03/21/22 15:53 Temperature 97.5 F L Temperature Source Oral Pulse Rate 230 H 230 H 105 H Respiratory Rate 20 H 32 H 19 H Blood Pressure 106/56 L 91/77 110/79 Blood Pressure Mean 72 81 89 Pulse Ox 99 98 98 Oxygen Delivery Method Room Air Room Air Room Air Positive well nourished and well developed General Appearance ED: well developed and NAD HEENT Reports TM's clear and moist mucous membranes normocephalic and atraumatic; Negative for trauma or tenderness Tympanic Membrane ED: Yes TM's clear Eyes PERRL and EOMs intact bilaterally General Eye ED: Negative for pale conjunctiva or scleral icterus Neck no lymphadenopathy, supple and no JVD General: Negative for tenderness Chest Wall inspection of chest normal and palpation of chest normal Chest: Negative for tenderness Resp normal respiratory effort and clear to auscultation bilaterally Effort and Inspection: Negative for respiratory distress or pain with movement Auscultation: Negative for rhonchi, wheezes or diminished lung sounds Cardio regular rate, regular rhythm, S1 normal heart sound, S2 normal heart sound and no murmurs Rate: tachycardic Peripheral Pulses: pulses 2+ throughout GI normal to inspection, nondistended, normoactive bowel sounds, soft to palpation, non-tender, non-distended and no masses Back/Spine no CVA tenderness and no thoracic nor lumbar tenderness Extremity normal to inspection General Extremety ED: Negative for edema General Extremity: Negative for edema Neuro oriented x3, CN's II-XII intact bilaterally, no sensory deficits noted and gait normal Sensorium / Orientation: awake, alert, oriented to person, oriented to place and oriented to time Motor Exam: strength 5/5 throughout and strength abnormal Psych mental status grossly normal Skin no rashes or lesions noted and no wounds MDM MDM MDM Narrative Medical decision making narrative: Nursing obtain EKG on patient arrival which showed SVT at a rate of 229. Patient was placed on a cafeteria monitor and IV line was established. We gave patient 6 mg of adenosine IV and she converted to a sinus rhythm. Initially I attempted to have patient bear down and perform carotid massage unsuccessfully. Patient lab work-up was essentially unremarkable other than she was noted to have an elevated blood glucose of which I made her aware and she states normally she is hypoglycemic but she ate a large amount of crackers and chicken salad before coming in. Patient also was advised that her creatinine was elevated 1.4 which is higher than from her last visit. I recommend she follow-up regarding these findings with her primary care physician to evaluate for type 2 diabetes potentially and follow her kidney function as patient states that she just not been drinking a lot of water lately. I discussed case with veterinary technician assistant on-call who recommended Cardizem CD as patient in the past did not tolerate metoprolol well. Patient was given a dose of the Cardizem CD in the department. She will be discharged to home. Patient and I had a discussion about potential for evaluation for an ablation however she states she does not want to go under for anything. She would prefer to prefer medical management. Lab Data Attestation: I reviewed the patient's lab results. Labs: Laboratory Results - last 24 hr 03/21/22 03/21/22 15:50 15:50 WBC 14.5 H RBC 5.69 H Hgb 13.8 Hct 44.5 MCV 78.2 L MCH 24.3 L MCHC 31.0 L RDW Std Deviation 42.0 RDW Coeff of Bonita 14.9 H Plt Count 338 MPV 10.8 Immature Gran % (Auto) 0.400 Neut % (Auto) 64.6 Lymph % (Auto) 27.4 Andrew % (Auto) 6.1 Eos % (Auto) 1.0 Baso % (Auto) 0.5 Absolute Neuts (auto) 9.4 H Absolute Lymphs (auto) 3.97 Nucleated RBC % 0 Sodium 137 Potassium 3.8 Chloride 102 Carbon Dioxide 25.0 Anion Gap 10 BUN 19 H Creatinine 1.41 H Estim Creat Clear Calc 35.22 Est GFR (MDRD) Af Amer 50 L Est GFR (MDRD) Non-Af 42 L BUN/Creatinine Ratio 13.5 Glucose 294 H Calcium 8.9 Troponin I High Sens 10 Radiography Chest X-Ray - ED: 1 View Diagnostic Testin view chest x-ray obtained interpreted by myself no acute disease process. There was no evidence of infiltrate or pneumothorax. Report from radiology pending EKG Initial EKG: Attestation: I personally reviewed and interpreted this EKG as follows: Comments: Supraventricular tachycardia with a rate of 229 bpm. After adenosine was given patient had a repeat EKG that showed a sinus tachycardia with a rate of 103 bpm with no acute ST segment changes noted. Prior EKG tracings: available for review Prior: Changed Discharge Plan Triage Chief Complaint: Chest Pain ED Provider: Malik Levy Dx/Rx/DC Orders Clinical Impression: Paroxysmal SVT (supraventricular tachycardia), Acute hyperglycemia Instructions: ED Understanding Supraventricular Tachycardia (SVT), ED Hyperglycemia New Susp Diabetes Prescriptions: New diltiazem HCl [Cardizem CD] 120 mg capsule,extended release 24hr 120 mg PO DAILY Qty: 30 0RF Primary Care Provider: Care Physician,No Primary Referrals: Quinn Mcgrath MD [Med Staff - Medical Esthetician] - 3-5 Days Rocky Mir MD [Med Staff - Active Staff] - 3-5 Days Care Physician,No Primary [Primary Care Provider] - Disposition Disposition: Home, Self Care
[2022-03-21 15:59] LABS: Absolute Lymphocyte Count 3.97 X10^3/uL (0.83-4.51); Absolute Neutrophil Count 9.4 X10^3/uL (2.0-7.7); Basophil# 0.07 X10^3/uL; Basophil% 0.5 % (0-1); Eosinophil# 0.14 X10^3/uL; Hematocrit 44.5 % (37-47); Hemoglobin 13.8 g/dL (12.0-15.0); Lymphocyte # 3.97 X10^3/ul (0.83-4.51); Lymphocyte % 27.4 % (19-41); Mean Corpuscular Hgb 24.3 pg (27.0-32.0); Mean Corpuscular Volume 78.2 fL (81-99); Mean Platelet Vol. 10.8 fl (6.2-12.0); Monocyte# 0.89 X10^3/uL; Monocyte% 6.1 % (0-10); NRBC Flagged by Analyzer 0 % (0-5); Neutrophil # 9.36 X10^3/uL (2.7-7.7); Neutrophil % 64.6 % (47-70); Platelet Count 338 K/mm3 (150-450); RBC Distribution Width CV 14.9 % (11.6-14.6); Red Blood Count 5.69 M/mm3 (4.2-5.4); White Blood Count 14.5 K/mm3 (4.4-11.0)
[2022-03-21 16:19] LABS: Anion Gap 10 (5-15); BUN 19 mg/dL (7-18); BUN/Creat Ratio 13.5 RATIO (10-20); Calcium,Total 8.9 mg/dL (8.5-10.1); Chloride 102 mmol/L (98-107); Creatinine, Serum 1.41 mg/dL (0.55-1.02); EST Glomerular Filtration Rate 42 mL/min (>60); Est Glom Filt Rate - Afr Amer 50 mL/min (>60); Estimated Creatinine Clearance 35.22 ml/min; Glucose 294 mg/dL (74-106); Potassium 3.8 mmol/L (3.5-5.1); Sodium Level 137 mmol/L (136-145); Troponin-I HS 10 pg/mL (3.0-54.0)
--- NOTE | 2022-03-21 16:19 | RAD_ITS ---
INDICATION: dyspnea EXAMINATION/TECHNIQUE: X-RAY - XR Chest 1 View COMPARISON: 06/27/2020. FINDINGS: LINES/DEVICES: None. LUNGS: No consolidation, edema or effusion. No pneumothorax. MEDIASTINUM AND CARDIOVASCULAR STRUCTURES: Cardiac silhouette not enlarged. Central airways and mediastinal contour are unremarkable. BONES AND SOFT TISSUES: Unremarkable. RAD/Chest 1 View (Portable) IMPRESSION: No radiographic evidence of acute cardiopulmonary disease. Electronically Signed: Cony Nick MD at 17:19 EST Reading Location ID and State: [id number] / Tel , Service support ,
[2022-03-21] MEDS: dilTIAZem CD 120 MG Capsule PO (16:50)
[2022-03-21 16:52] VITALS: BP 114/85; PULSE 103; RESP 16; O2SAT 99
== END 2022-03-21 17:00 | disposition home or self-care (01) ==
PROVIDERS: Emergency Provider Emergency Medicine; Visit Provider Emergency Medicine
DX: I47.1 Supraventricular tachycardia (principal); R73.9 Hyperglycemia, unspecified; I25.2 Old myocardial infarction; F17.210 Nicotine dependence, cigarettes, uncomplicated
CPT/HCPCS: 71045; 80048; 84484; 85025; 93005; 96374; 96375; 99285; J7030; A4216; J0153; J2405

== ENCOUNTER → 2022-04-06 | Outpatient (CLI) | payer MEDICAID, SELFPAY ==
--- NOTE | 2022-04-06 16:13 | BI_ITS ---
MAMMOGRAPHY - BILATERAL SCREENING REASON FOR EXAM: Female, 51 years old. Routine annual screening examination. PERTINENT HISTORY: Non-contributory. TECHNIQUE: Digital bilateral breast brock (3D mammographic acquisition) in the CC and MLO projections. 2-D mediolateral oblique (MLO) and craniocaudad (CC) views of both breasts were obtained. CAD: Full Field Digital Mammography with Computer Added Detection was performed. COMPARISON: Comparison is made with prior study of 11/04/2017. FINDINGS: Breast Composition: The breasts are heterogeneously dense, which may obscure small masses. There are no dominant masses or suspicious calcifications. Stable small benign-appearing bilateral axillary lymph nodes. No other significant abnormalities are identified. There has been no significant change since the prior study. BI/SCRN MAMM (CAD)W/BROCK BILAT IMPRESSION: Stable bilateral screening mammogram. Yearly follow-up mammogram recommended. (A) ASSESSMENT CATEGORY: BIRADS Category 2: Benign. A letter regarding these results will be sent to the patient by the facility within 30 days. Approximately 10% of breast cancers are not detected by mammography. A normal mammogram should not delay biopsy of a clinically suspicious abnormality. [id number] Electronically Signed: Cale Madison MD at 8:49 EST ,
== END | disposition home or self-care (01) ==
PROVIDERS: Referring Provider Nurse Practitioner Women's Health; Visit Provider Nurse Practitioner Women's Health
DX: Z12.31 Encounter for screening mammogram for malignant neoplasm of breast (principal)
CPT/HCPCS: 77063; 77067

== ENCOUNTER → 2022-05-20 | Outpatient (CLI) | payer MEDICAID, SELFPAY ==
--- NOTE | 2022-05-20 13:55 | ECHOD_ITS ---
Reason For Study: SVT, ABNL EKG Procedure This was a 2D Doppler, Color Flow transthoracic echocardiogram. Exam performed in department. Left Ventricle Normal size and thickness. The left ventricular ejection fraction is 60 %. Normal diastololic function. Right Ventricle Normal right ventricle. Atria The left and right atria are normal. Cannot rule out tiny PFO. Mitral Valve Normal mitral valve. Tricuspid Valve Trivial tricuspid valve insufficiency. Normal pulmonary artery pressure. Aortic Valve Normal aortic valve. Pulmonic Valve The pulmonic valve is not well visualized. Great Vessels Normal sized aortic root. Pericardium/Pleural No pericardial effusion. MMode/2D Measurements & Calculations LVIDd: 4.9 cm IVSd: 0.84 cm Ao root diam: 3.2 cm LVIDs: 3.3 cm LVPWd: 0.86 cm RVDd: 2.3 cm FS: 32.7 % LAV(MOD-bp): 43.5 ml LVAd ap4: 25.8 cm2 LVAd ap2: 20.2 cm2 LAV(MOD-bp) Indexed: 26.0 ml/m2 LVLd ap4: 6.7 cm LVLd ap2: 6.6 cm LAV(MOD-sp2): 43.8 ml EDV(MOD-sp4): 82.6 ml EDV(MOD-sp2): 53.9 ml LAV(MOD-sp4): 43.7 ml EDV(sp4-el): 83.8 ml EDV(sp2-el): 52.1 ml LVAs ap4: 14.6 cm2 LVAs ap2: 12.8 cm2 LVLs ap4: 5.8 cm LVLs ap2: 5.9 cm ESV(MOD-sp4): 33.0 ml ESV(MOD-sp2): 24.6 ml ESV(sp4-el): 31.0 ml ESV(sp2-el): 23.7 ml EF(MOD-sp4): 60.0 % EF(MOD-sp2): 54.3 % EF(sp4-el): 63.1 % SV(MOD-sp4): 49.6 ml SV(MOD-sp2): 29.2 ml SV(sp4-el): 52.9 ml LA dimension(2D): 3.4 cm LA A4 area: 16.3 cm2 RA A4 area: 13.3 cm2 Time Measurements MV dec time: 0.19 sec Doppler Measurements & Calculations MV E max russ: 74.2 cm/sec Lat Peak E' Russ: 9.5 cm/sec Med Peak E' Russ: 7.1 cm/sec MV A max russ: 80.1 cm/sec E/E' lat: 7.8 E/E' med: 10.5 MV E/A: 0.93 MV dec slope: 384.5 cm/sec2 Ao V2 max: 131.1 cm/sec LV V1 max: 93.8 cm/sec Ao max P.9 mmHg LV V1 max P.5 mmHg Ao V2 mean: 90.9 cm/sec LV V1 mean P.8 mmHg Ao mean P.8 mmHg LV V1 mean: 60.8 cm/sec Ao V2 VTI: 30.5 cm LV V1 VTI: 20.4 cm AV (velocity ratio): 0.67 PA V2 max: 79.0 cm/sec TR max russ: 217.4 cm/sec TR max P.9 mmHg ECHO/Echo Complete Interpretation Summary The left ventricular ejection fraction is 60 %. Cannot rule out tiny PFO. Ordering Physician: Fiordaliza Fields Referring Physician: [facility] Performed By: Susie Umaña, CLARI, RVT
[2022-05-20 15:34] LABS: Thyroid Stim Hormone (TSH) 1.44 uIU/mL (0.358-3.74)
== END | disposition home or self-care (01) ==
PROVIDERS: Referring Provider Internal Medicine Cardiovascular Disease; Visit Provider Internal Medicine Cardiovascular Disease
DX: R94.31 Abnormal electrocardiogram [ECG] [EKG] (principal); I47.1 Supraventricular tachycardia; R07.9 Chest pain, unspecified; Q24.9 Congenital malformation of heart, unspecified
CPT/HCPCS: 36415; 84443; 93306

== ENCOUNTER 2022-11-15 14:10 | Emergency (ER) | payer MEDICAID, SELFPAY ==
[2022-11-15 14:11] VITALS: BP 116/72; PULSE 88; RESP 18; TEMP 36.6; O2SAT 98; BMI 28.7
--- NOTE | 2022-11-15 14:40 | ED.RN ---
pt told triage nurse she decided she didnt want to wait.
== END 2022-11-15 14:40 | disposition left against medical advice (07) ==
LOC: ED 14:41
DX: Z53.21 Procedure and treatment not carried out due to patient leaving prior to being seen by health care provider (principal)

== ENCOUNTER 2022-11-17 08:30 | Emergency (ER) | payer SELFPAY ==
[2022-11-17 08:31] VITALS: BP 127/84; PULSE 87; RESP 14; TEMP 36.3; O2SAT 98; BMI 28.7
--- NOTE | 2022-11-17 08:42 | VDLE_ITS ---
Reason For Study: LLE Pain RIGHT LEFT CFV is compressible, spontaneous, phasic, CFV is compressible, spontaneous, phasic, competent and demonstrates normal competent, and demonstrates normal augmentation. augmentation. Procedure FV is compressible, spontaneous, phasic, This is a venous duplex using B-mode, color competent and demonstrates normal flow and spectral Doppler. augmentation. Exam performed portable in ED. POP V is compressible, phasic, and The exam was diagnostic. INCOMPETENT for greater than 1.0 second. A preliminary report was called and/or faxed T/P Trunk is compressible. to Dr. gR. PTV is compressible. LT PerV is compressible. SSV at junction is INCOMPETENT for greater than 0.5 seconds and measures 0.77 cm. Lt prox calf varicosities appear to have a reflux time of >0.5 seconds. VL/Venous Duplex US, Unilateral Interpretation Summary Deep veins of the left lower extremity are patent and compressible segmentally. There is no evidence of left lower extremity deep vein thrombosis. The left great saphenous vein rd ears patent and compressible segmentally. Reflux identified left popliteal vein, small saphenous vein, and calf varicosit ies Ordering Physician: Elie Rg Referring Physician: N/A Performed By: Hema Valles, RVT
--- NOTE | 2022-11-17 08:42 | ED.VIS.LOWEX ---
HPI History of Present Illness Chief Complaint: Lower Extremity Injury Narrative Narrative: 52-year-old female with pain behind her left knee for months. Patient denies any trauma. She states she has antalgic gait. Patient states that she has no history of DVT/PE. No recent travel. No recent surgery. Has not been bedridden immobilized. She not on any exogenous hormones. Patient is not anticoagulated. Patient states its worse with movement and better with rest. She states she was urged by her family members to, rule out DVT because of the pain. Chest pain or shortness of breath. PFSH PFSH Medical History Anomalous origin of right coronary artery Chest pain Congenital heart disease Coronary artery disease Hypertension Iron deficiency anemia Nicotine dependence NSTEMI (non-ST elevated myocardial infarction) Obesity (BMI 30.0-34.9) Old myocardial infarction Pre-diabetes SVT (supraventricular tachycardia) Tobacco abuse Tobacco use Home Medications aspirin 81 mg tablet,delayed release 81 mg PO DAILY 05/05/22 [History Last Taken Unknown] carvedilol 6.25 mg tablet 6.25 mg PO BID #180 tabs 05/05/22 [Rx Last Taken Unknown] metformin 500 mg tablet 500 mg PO DAILY 05/05/22 [History Last Taken Unknown] Allergy/AdvReac Type Severity Reaction Status Date / Time No Known Allergies Allergy Verified 11/17/22 08:33 Family History Father Diabetes Myocardial infarction CAD (coronary artery disease) CABG Mother Diabetes Myocardial infarction Grandfather CVA (cerebral vascular accident) Sister , age 45 Colon cancer Brother Kidney disease on dialysis Surgical History History of left heart catheterization (~2018) History of tubal ligation Social History Smoking Status: Current every day smoker tobacco type: cigarettes alcohol intake: never substance use type: does not use caffeine: Yes Type: tea Number of servings: 1 ROS ROS ED Constitutional Constitutional ED: Denies chills, fever(s) or sweats Eyes Eyes: Denies blurry vision or change in vision ENT ENT ED: Denies ear pain or sore throat Cardiovascular Cardiovascular: Denies chest pain, palpitations or racing heartbeat Respiratory/Chest Respiratory/Chest: Denies cough, dyspnea or sputum Gastrointestinal Gastrointestinal: Denies abdominal pain, constipation, diarrhea, nausea or vomiting Genitourinary Genitourinary ED: Denies dysuria, hematuria or urinary frequency Musculoskeletal Musculoskeletal: Denies arthralgias, myalgias or neck pain Integumentary Denies abscess, Abrasions or rash Neurologic Neurologic: Denies headache(s), paresthesias or weakness Psychiatric Psychiatric: Denies anxiety, depression, suicidal ideation or suicidal thoughts Endocrine Endocrinology: Denies polydipsia or polyuria EXAM Physical Exam Const Vital Signs: 11/17/22 08:31 Temperature 97.3 F L Temperature Source Temporal Pulse Rate 87 Respiratory Rate 14 Blood Pressure 127/84 H Blood Pressure Mean 98 Pulse Ox 98 Oxygen Delivery Method Room Air Positive well nourished HEENT normocephalic and atraumatic Resp normal respiratory effort and no retractions Cardio regular rate and regular rhythm Extremity normal to inspection Extremity Narrative: Mild tenderness to palpation posterior left knee. No edema. No bruising, swelling. Calves are soft palpated. Neuro oriented x3 and CN's II-XII intact bilaterally Sensorium / Orientation: alert Motor Exam: strength 5/5 throughout Psych mental status grossly normal Skin no wounds MDM MDM MDM Narrative Medical decision making narrative: Patient presenting with pain behind the left knee and is concerned for DVT although she does not have any risk factors. Score for DVT is -1 given she does have some tenderness. Will obtain DVT study. Patient needs x-ray of the knee. Differential includes muscle strain, DVT, Bean's cyst. Duplex of the left lower extremity is negative for DVT however the clinical research tech states that she has poor valves. At this point I feel the patient stable for discharge home. Return precautions discussed. Impression: 1. Left knee pain Discharge Plan Triage Chief Complaint: Lower Extremity Injury ED Provider: Elie Rg Dx/Rx/DC Orders Prescriptions: No Action metformin 500 mg tablet 500 mg PO DAILY carvedilol 6.25 mg tablet 6.25 mg PO BID Qty: 180 3RF Rx Instructions: must administer with a meal/food aspirin 81 mg tablet,delayed release (DR/EC) 81 mg PO DAILY Primary Care Provider: Care Physician,No Primary Referrals: Care Physician,No Primary [Primary Care Provider] -
[2022-11-17 09:30] VITALS: RESP 14
== END 2022-11-17 09:30 | disposition home or self-care (01) ==
PROVIDERS: Emergency Provider Student in an Organized Health Care Education/Training Program; Visit Provider Student in an Organized Health Care Education/Training Program
DX: M25.562 Pain in left knee (principal); I25.10 Atherosclerotic heart disease of native coronary artery without angina pectoris; I25.2 Old myocardial infarction; F17.210 Nicotine dependence, cigarettes, uncomplicated
CPT/HCPCS: 93971; 99282

== ENCOUNTER 2022-11-24 08:21 | Emergency (ER) | payer SELFPAY ==
[2022-11-24 08:22] VITALS: BP 137/77; PULSE 87; RESP 14; TEMP 36.3; O2SAT 100; BMI 28.7
--- NOTE | 2022-11-24 08:38 | EX.ED.DYSGE1 ---
HPI History of Present Illness Chief Complaint: Complaint Informant: patient Onset/Context/Timing Onset: Days (4 days) Context: Gradual Onset Timing: Waxes and wanes Maximum Severity: Moderate Narrative Narrative: Patient presents with dysuria, frequency, urgency, and low back pain for the past 4 days. She has had chills but no fever. She has a history of UTIs but states she really has not had 1 in the last 2 years when she stopped drinking soda. PFSH PFSH Medical History Anomalous origin of right coronary artery Chest pain Congenital heart disease Coronary artery disease Hypertension Iron deficiency anemia Nicotine dependence NSTEMI (non-ST elevated myocardial infarction) Obesity (BMI 30.0-34.9) Old myocardial infarction Pre-diabetes SVT (supraventricular tachycardia) Tobacco abuse Tobacco use Home Medications aspirin 81 mg tablet,delayed release 81 mg PO DAILY 05/05/22 [History Last Taken Unknown] carvedilol 6.25 mg tablet 6.25 mg PO BID #180 tabs 05/05/22 [Rx Last Taken Unknown] metformin 500 mg tablet 500 mg PO DAILY 05/05/22 [History Last Taken Unknown] phenazopyridine 200 mg tablet (Pyridium) 200 mg PO TID PRN pain 6 doses #6 tabs 11/24/22 [Rx Last Taken Unknown] sulfamethoxazole 800 mg-trimethoprim 160 mg tablet (Bactrim DS) 1 tab PO BID #6 tabs 11/24/22 [Rx Last Taken Unknown] Allergy/AdvReac Type Severity Reaction Status Date / Time No Known Allergies Allergy Verified 11/24/22 08:23 Family History Father Diabetes Myocardial infarction CAD (coronary artery disease) CABG Mother Diabetes Myocardial infarction Grandfather CVA (cerebral vascular accident) Sister , age 45 Colon cancer Brother Kidney disease on dialysis Surgical History History of left heart catheterization (~2018) History of tubal ligation Social History Smoking Status: Current every day smoker tobacco type: cigarettes alcohol intake: never substance use type: does not use caffeine: Yes Type: tea Number of servings: 1 ROS ROS ED Constitutional Constitutional ED: Reports chills; Denies fever(s) Eyes Eyes: Denies change in vision or discharge from eye(s) ENT ENT ED: Denies discharge from eye(s) or sore throat Cardiovascular Cardiovascular: Denies chest pain or palpitations Respiratory/Chest Respiratory/Chest: Denies cough or dyspnea Gastrointestinal Gastrointestinal: Reports abdominal pain and nausea; Denies diarrhea or vomiting Genitourinary Genitourinary ED: Reports dysuria, hematuria and urinary frequency Musculoskeletal Musculoskeletal: Reports back pain; Denies extremity pain Integumentary Denies Abrasions or rash Neurologic Neurologic: Denies headache(s) or weakness Psychiatric Psychiatric: Denies anxiety or depression Allergic/Immunologic Allergic/Immunologic ED: Denies lip swelling or urticaria EXAM Physical Exam Const Vital Signs: 11/24/22 08:22 Temperature 97.3 F L Temperature Source Temporal Pulse Rate 87 Respiratory Rate 14 Blood Pressure 137/77 H Blood Pressure Mean 97 Pulse Ox 100 Oxygen Delivery Method Room Air Positive well nourished and well developed General Appearance ED: well developed HEENT Reports normocephalic and head/scalp atraumatic Eyes PERRL and EOMs intact bilaterally Neck supple Chest Wall inspection of chest normal and palpation of chest normal Resp normal respiratory effort and clear to auscultation bilaterally Cardio regular rate and regular rhythm GI GI Narrative: Mild suprapubic tenderness to palpation. Palpation: soft Back/Spine no CVA tenderness Back/Spine Narrative: Tenderness in the lumbar paraspinal muscles bilaterally but no CVA tenderness. Extremity normal to inspection Neuro oriented x3 and no sensory deficits noted Sensorium / Orientation: alert Motor Exam: strength 5/5 throughout Psych mental status grossly normal Skin no rashes or lesions noted MDM MDM MDM Narrative Medical decision making narrative: Patient has symptoms consistent with UTI and urine is hazy at bedside. We will send it for culture and go ahead and treat her with Bactrim and Pyridium. Discharge Plan Triage Chief Complaint: Complaint ED Provider: Anna Sherman Dx/Rx/DC Orders Clinical Impression: UTI (urinary tract infection) Instructions: ED Cystitis Female Adult Prescriptions: New sulfamethoxazole-trimethoprim [Bactrim DS] 800-160 mg tablet 1 tab PO BID Qty: 6 0RF phenazopyridine [Pyridium] 200 mg tablet 200 mg PO TID PRN (Reason: pain) Qty: 6 0RF No Action metformin 500 mg tablet 500 mg PO DAILY carvedilol 6.25 mg tablet 6.25 mg PO BID Qty: 180 3RF Rx Instructions: must administer with a meal/food aspirin 81 mg tablet,delayed release (DR/EC) 81 mg PO DAILY Primary Care Provider: Care Physician,No Primary Referrals: Edelmira Jacobs MD [Med Staff - Photographer [employer]] - As Needed Care Physician,No Primary [Primary Care Provider] - Disposition Disposition: Home, Self Care
[2022-11-24] MEDS: Phenazopyridine 95 MG Tablet 190 MG PO (08:51)
[2022-11-24] MEDS: Smz/Tmp Ds Tablet 1 TABLET PO (08:51)
== END 2022-11-24 09:22 | disposition home or self-care (01) ==
LOC: ED 09:05
PROVIDERS: Emergency Provider Emergency Medicine; Visit Provider Emergency Medicine
DX: N39.0 Urinary tract infection, site not specified (principal); I25.10 Atherosclerotic heart disease of native coronary artery without angina pectoris; I25.2 Old myocardial infarction
CPT/HCPCS: 87077; 87086; 87088; 87186; 99283

== ENCOUNTER 2023-10-14 11:15 | Emergency (ER) | payer SELFPAY ==
[2023-10-14 11:16] VITALS: BP 142/96; PULSE 87; RESP 16; TEMP 36.4; O2SAT 98; BMI 30.2
[2023-10-14 11:17] VITALS: BP 142/96; PULSE 87; RESP 16; TEMP 36.4; O2SAT 98
--- NOTE | 2023-10-14 11:52 | ED.VIS.FEGU ---
HPI HPI - Female History of Present Illness Chief Complaint: Complaint Informant: patient Narrative Narrative: Patient with UTI symptoms. Frequency and dysuria. Took azole he said to follow little better initially she has any symptoms for a week. Since she has been tired and rundown. Denies vomiting, diarrhea or fever. No melena. No abdominal pain. Prior similar symptoms: Yes Recent Illness/Hospitalization: No 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 NSTEMI (non-ST elevated myocardial infarction) Chest pain SVT (supraventricular tachycardia) Iron deficiency anemia Obesity (BMI 30.0-34.9) Tobacco use Home Medications ?Medication ?Instructions ?Recorded ?Last Taken ?Type aspirin 81 mg tablet,delayed 81 mg PO DAILY 05/05/22 Unknown History release metformin 500 mg tablet 500 mg PO DAILY 05/05/22 Unknown History phenazopyridine 200 mg tablet 200 mg PO TID PRN pain 6 doses #6 11/24/22 Unknown Rx (Pyridium) tabs sulfamethoxazole 800 1 tab PO BID #6 tabs 11/24/22 Unknown Rx mg-trimethoprim 160 mg tablet (Bactrim DS) carvedilol 6.25 mg tablet 6.25 mg PO BID #180 tabs 07/07/23 Unknown Rx Allergy/AdvReac Type Severity Reaction Status Date / Time No Known Allergies Allergy Verified 10/14/23 11:15 Family History Father Diabetes Myocardial infarction CAD (coronary artery disease) CABG Mother Diabetes Myocardial infarction Grandfather CVA (cerebral vascular accident) Sister , age 45 Colon cancer Brother Kidney disease on dialysis Surgical History History of left heart catheterization (~2018) History of tubal ligation Social History Smoking Status: Current every day smoker tobacco type: cigarettes alcohol intake: never substance use type: does not use caffeine: Yes Type: tea Number of servings: 1 ROS ROS ED ROS Narrative Generalized malaise. Dysuria. Constitutional Constitutional ED: Reports fatigue Eyes Eyes: Denies eye pain ENT ENT ED: Denies dental pain Cardiovascular Cardiovascular: Denies dyspnea on exertion Respiratory/Chest Respiratory/Chest: Denies hemoptysis Gastrointestinal Gastrointestinal: Denies coffee ground emesis Musculoskeletal Musculoskeletal: Reports none Integumentary Denies dry skin Neurologic Neurologic: Denies behavior changes Psychiatric Psychiatric: Denies hallucinations Endocrine Endocrinology: Denies deepening of the voice Hematologic/Lymphatic Hematologic/Lymphatic: Denies lymphadenopathy Allergic/Immunologic Allergic/Immunologic ED: Denies mouth swelling EXAM Physical Exam Narrative Exam Narrative: Well-appearing 53-year-old female. Vital signs stable afebrile. H EENT exam unremarkable. Neck nontender. Lungs clear to auscultation bilaterally. Heart regular rate and rhythm rate about 90 no murmur. Chest wall ribs nontender. Abdomen soft nontender. Moving all 4 extremities. Calves are nontender without edema or cords. Neurologically patient is awake and alert. No focal motor deficits. Const Vital Signs: 10/14/23 11:16 10/14/23 11:17 10/14/23 12:17 Temperature 97.5 F L 97.5 F L 97.9 F Temperature Source Temporal Temporal Oral Pulse Rate 87 87 88 Respiratory Rate 16 16 16 Blood Pressure 142/96 H 142/96 H 134/71 H Blood Pressure Mean 111 111 92 Pulse Ox 98 98 98 Oxygen Delivery Method Room Air Room Air Room Air 10/14/23 13:15 Temperature Temperature Source Pulse Rate 82 Respiratory Rate 18 Blood Pressure 128/89 H Blood Pressure Mean 102 Pulse Ox 99 Oxygen Delivery Method Room Air Positive well nourished, well developed, alert, oriented x3, no apparent distress, average body habitus, no limitations and healthy appearing; Negative for cachectic, contractures or unkempt General Appearance ED: well developed; Negative for unkempt, cachectic or contractures Nutritional Appearance: Negative for cachectic HEENT Reports normocephalic and head/scalp atraumatic normocephalic Face and Sinus: normal facial exam Nose: external nose normal Mouth ED: Yes oral and palatal mucosa normal Mouth: oral and palatal mucosa normal Throat: posterior oropharynx normal Eyes PERRL, EOMs intact bilaterally, conjunctivae normal and no scleral icterus Visual Acuity: acuity normal Neck full ROM Lymph Lymphatic: no lymphadenopathy noted Chest Wall inspection of chest normal Resp normal respiratory effort, normal air movement, no retractions, no use of accessory muscles and clear to auscultation bilaterally Cardio regular rate, regular rhythm, S1 normal heart sound, S2 normal heart sound, no murmurs, no rub, no gallops, no clicks and no JVD GI normal to inspection, nondistended, normoactive bowel sounds, soft to palpation, non-tender, non-distended, no masses and no bruits Palpation: soft Back/Spine no CVA tenderness, normal ROM, normal to inspection, thoracic and lumbar spine normal to inspection and no thoracic nor lumbar tenderness General Back: Negative for CVA tenderness Extremity normal to inspection, full ROM, normal capillary refill, no joint enlargement, no clubbing, cyanosis or edema, no calf tenderness and no pedal edema Neuro oriented x3, CN's II-XII intact bilaterally, moves all extremities and no focal motor deficits Sensorium / Orientation: awake, alert, oriented to person, oriented to place and oriented to time Motor Exam: strength 5/5 throughout Psych mental status grossly normal, thought process normal, cooperative, affect normal, speech normal and activity/motor behavior normal Appearance: grossly normal; Negative for unkempt Attitude: calm and engaged Activity / Motor Behavior: appropriate eye contact Speech: normal speech Skin no rashes or lesions noted, no wounds, skin turgor normal, no jaundice, no petechiae and no mottling General Skin Exam: no breakdown MDM MDM MDM Narrative Medical decision making narrative: 53-year-old female ITE UTI symptoms. Says she feels weak and fatigued. Screening labs and UA will be obtained. Exam benign. Repeat exam patient doing well at 205. We went over test results. Nothing specific. Her exam is benign. She has no signs of urinary tract infection on her urinalysis. Her sugar is slightly elevated 156 but this was not fasting. She can follow-up with her primary care physician. History & Record Review Discussion w/independent historian: Patient Additional record(s) reviewed:: Prior inpatient record, Prior outpatient record and Prior ED visit Lab Data Attestation: I reviewed the patient's lab results. Lab results narrative: Urinalysis shows no white or red cells. No bacteria no nitrates. CBC normal white count of 10 H&H of 12 and 39. Platelets 275. Chemistries show gap of 5. Normal BUN and creatinine. Glucose 156. Labs: Laboratory Results - last 24 hr 10/14/23 10/14/23 12:06 13:39 WBC 10.4 RBC 5.09 Hgb 12.3 Hct 39.4 MCV 77.4 L MCH 24.2 L MCHC 31.2 L RDW Std Deviation 40.1 RDW Coeff of [place]ita 14.5 Plt Count 275 MPV 10.1 Immature Gran % (Auto) 0.500 Neut % (Auto) 61.5 Lymph % (Auto) 28.1 [place] % (Auto) 8.1 Eos % (Auto) 1.4 Baso % (Auto) 0.4 Absolute Neuts (auto) 6.4 Absolute Lymphs (auto) 2.91 Nucleated RBC % 0 Sodium 140 Potassium 3.6 Chloride 105 Carbon Dioxide 30.0 Anion Gap 5 BUN 15 Creatinine 0.66 Estim Creat Clear Calc 88.79 Est GFR (MDRD) Af Amer 119 Est GFR (MDRD) Non-Af 98 BUN/Creatinine Ratio 22.6 H Glucose 156 H Calcium 9.1 Urine Color Yellow Urine Clarity Sl. Cloudy Urine pH 6.0 Ur Specific [place] 1.020 Urine Protein 30 H Urine Glucose (UA) 100 H Urine Ketones 5 H Urine Occult Blood 10 H Urine Nitrite Negative Urine Bilirubin Negative Urine Urobilinogen 1 H Ur Leukocyte Esterase 100 H Urine RBC 0 SEEN Urine WBC 0-5 SEEN Ur Squamous Epith Cells 0-5 SEEN Urine Bacteria 0 SEEN Urine Mucus 0 SEEN Discharge Plan Triage Chief Complaint: Complaint ED Provider: Mack Friedman Dx/Rx/DC Orders Clinical Impression: Generalized weakness Instructions: ED Weakness (Uncertain Cause) Prescriptions: No Action metformin 500 mg tablet 500 mg PO DAILY aspirin 81 mg tablet,delayed release (DR/EC) 81 mg PO DAILY sulfamethoxazole-trimethoprim [Bactrim DS] 800-160 mg tablet 1 tab PO BID Qty: 6 0RF phenazopyridine [Pyridium] 200 mg tablet 200 mg PO TID PRN (Reason: pain) Qty: 6 0RF carvedilol 6.25 mg tablet 6.25 mg PO BID Qty: 180 0RF Rx Instructions: must administer with a meal/food Primary Care Provider: Care Physician,No Primary Referrals: Cristine Lucia [Non-Staff] - 1 Week if not improving Care Physician,No Primary [Primary Care Provider] - Activity Restrictions/Additional Instructions: Your labs look good. Your blood sugar was slightly elevated at 156. But this was not a fasting blood sugar. Follow-up with your primary care physician in a week or so if not improving. Print Language: Grenadian Disposition Disposition: Home, Self Care
[2023-10-14 12:13] LABS: Bacteria 0 SEEN /hpf (None Seen); Mucous, Urine 0 SEEN /hpf (<or=2+); Red Blood Cells-Urine 0 SEEN /hpf (0-5)
[2023-10-14 12:17] VITALS: BP 134/71; PULSE 88; RESP 16; TEMP 36.6; O2SAT 98
[2023-10-14 12:17] LABS: Color, Urine Yellow (Yellow); Glucose, Dipstick 100 mg/dl (Normal); Ketone-Dipstick 5 mg/dl (Negative); Leukocyte Esterase-Dipstick 100 /ul (Negative); Nitrite-Dipstick Negative (Negative); Occult Blood-Urine 10 /ul (Negative); Protein-Dipstick 30 mg/dl (Negative); Urine Bilirubin Dipstick Negative (Negative); Urine Clarity Sl. Cloudy (Clear); Urine Urobilinogen 1 mg/dl (Normal)
[2023-10-14 12:24] LABS: Squamous Epithelial Cells - UA 0-5 SEEN /hpf (5-10); White Blood Cells 0-5 SEEN /hpf (0-5)
[2023-10-14 13:15] VITALS: BP 128/89; PULSE 82; RESP 18; O2SAT 99
[2023-10-14 13:44] LABS: Absolute Lymphocyte Count 2.91 X10^3/uL (0.83-4.51); Absolute Neutrophil Count 6.4 X10^3/uL (2.0-7.7); Basophil# 0.04 X10^3/uL; Basophil% 0.4 % (0-1); Eosinophil# 0.14 X10^3/uL; Eosinophils% 1.4 % (0-5); Hematocrit 39.4 % (37-47); Hemoglobin 12.3 g/dL (12.0-15.0); Lymphocyte # 2.91 X10^3/ul (0.83-4.51); Lymphocyte % 28.1 % (19-41); Mean Corp Hgb Conc 31.2 g/dL (32-36); Mean Corpuscular Hgb 24.2 pg (27.0-32.0); Mean Corpuscular Volume 77.4 fL (81-99); Mean Platelet Vol. 10.1 fl (6.2-12.0); Monocyte# 0.84 X10^3/uL; Monocyte% 8.1 % (0-10); NRBC Flagged by Analyzer 0 % (0-5); Neutrophil # 6.39 X10^3/uL (2.7-7.7); Neutrophil % 61.5 % (47-70); Platelet Count 275 K/mm3 (150-450); RBC Distribution Width CV 14.5 % (11.6-14.6); RBC Distribution Width SD 40.1 fl (35.1-43.9); Red Blood Count 5.09 M/mm3 (4.2-5.4); White Blood Count 10.4 K/mm3 (4.4-11.0)
[2023-10-14 14:04] LABS: Anion Gap 5 (5-15); BUN 15 mg/dL (7-18); BUN/Creat Ratio 22.6 RATIO (10-20); Calcium,Total 9.1 mg/dL (8.5-10.1); Chloride 105 mmol/L (98-107); Creatinine, Serum 0.66 mg/dL (0.55-1.02); EST Glomerular Filtration Rate 98 mL/min (>60); Est Glom Filt Rate - Afr Amer 119 mL/min (>60); Estimated Creatinine Clearance 88.79 ml/min; Glucose 156 mg/dL (74-106); Potassium 3.6 mmol/L (3.5-5.1); Sodium Level 140 mmol/L (136-145)
== END 2023-10-14 14:15 | disposition home or self-care (01) ==
PROVIDERS: Emergency Provider Emergency Medicine; Visit Provider Emergency Medicine
DX: R53.1 Weakness (principal); I25.10 Atherosclerotic heart disease of native coronary artery without angina pectoris; I25.2 Old myocardial infarction; F17.210 Nicotine dependence, cigarettes, uncomplicated
CPT/HCPCS: 80048; 81001; 85025; 99282; A4216

== ENCOUNTER 2023-11-09 08:51 | Emergency (ER) | payer SELFPAY ==
[2023-11-09 08:52] VITALS: BP 151/82; PULSE 89; RESP 18; TEMP 36.4; O2SAT 97; BMI 31.1
--- NOTE | 2023-11-09 09:17 | EDS_ITS ---
HPI History of Present Illness Chief Complaint: Complaint Narrative Narrative: Patient is a 53-year-old female who past medical history of SVT, hole in her heart presented to the emergency department chief complaint of urinary symptoms. States that for the past 3 days she has had urinary tract infection symptoms states that she has had burning and tingling when she urinates. Patient states that she is not sexually active and denies any possibility of STIs. Patient states that she does get UTIs and this feels like a UTI for her. States that her blood pressure appears to be elevated here and states that she has been under a lot of stress at work lately. She is requesting a work note. 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 NSTEMI (non-ST elevated myocardial infarction) Chest pain SVT (supraventricular tachycardia) Iron deficiency anemia Obesity (BMI 30.0-34.9) Tobacco use Home Medications ?Medication ?Instructions ?Recorded ?Last Taken ?Type aspirin 81 mg tablet,delayed 81 mg PO DAILY 05/05/22 Unknown History release carvedilol 6.25 mg tablet 6.25 mg PO BID #180 tabs 07/07/23 Unknown Rx cephalexin 500 mg capsule 500 mg PO BID 5 days #10 caps 11/09/23 Unknown Rx Allergy/AdvReac Type Severity Reaction Status Date / Time No Known Allergies Allergy Verified 11/09/23 08:52 Family History Father Diabetes Myocardial infarction CAD (coronary artery disease) CABG Mother Diabetes Myocardial infarction Grandfather CVA (cerebral vascular accident) Sister , age 45 Colon cancer Brother Kidney disease on dialysis Surgical History History of left heart catheterization (~2018) History of tubal ligation Social History Smoking Status: Heavy Smoker (>10/day) alcohol intake: never substance use type: does not use caffeine: Yes Type: tea Number of servings: 1 ROS ROS ED ROS Narrative Constitutional: Denies any fevers, chills, headaches, lightness, dizziness Eyes: Denies change in vision double vision blurry vision Cardiovascular: Denies chest pain or palpitations Respiratory: Denies coughing wheezing shortness of breath Abdomen: Denies abdominal pain nausea vomiting diarrhea : Complains of urinary symptoms as noted above Neurological: Denies numbness, weakness, tingling Musculoskeletal: Denies back pain Skin: Denies rashes or lesions EXAM Physical Exam Narrative Exam Narrative: General: Patient lying in bed rest comfortably did not appear to be in acute distress Head: Atraumatic, normocephalic Eyes: PERRL bilaterally, EOMI bilateral, no conjunctival injection noted Neck: Soft, supple, trachea midline Cardiovascular: Regular rate and rhythm no murmurs gallops rubs noted Respiratory: Clear to auscultation bilaterally Abdomen: Soft, nondistended, no tenderness palpation, bowel sounds present x 4, no rebound or guarding on exam Musculoskeletal: No CVA tenderness noted on exam Extremities: +5/5 strength noted in the bilateral upper and lower extremities, radial pulses +2/4 in the bilateral upper extremities Neurological: Patient following commands knew that she was at [facility] year is 2023. Sensation grossly intact, no saddle anesthesia noted Skin: Warm, dry, intact Const Vital Signs: 11/09/23 08:52 11/09/23 08:52 Temperature 97.6 F L 97.6 F L Temperature Source Oral Temporal Pulse Rate 89 89 Respiratory Rate 18 18 Blood Pressure 151/82 H 151/82 H Blood Pressure Mean 105 105 Pulse Ox 97 97 Oxygen Delivery Method Room Air Room Air MDM MDM MDM Narrative Medical decision making narrative: Patient is a 53-year-old female who presented to the emerged part with concern for urinary tract infection. Patient will have a workup performed here on the differential diagnose includes but not limited to urinary tract infection, fungal infection. Once workup is obtained reviewed she will be reevaluated. Patient's urinalysis was reviewed and showed her leukocyte esterase with 2+ bacteria if she is having urinary symptoms we will treat her for urinary tract infection with Keflex this to be sent to her pharmacy. Her urine was sent for culture. She was advised to follow-up on this culture result. She is encouraged return with worsening symptoms or other concerns. Patient would like to go home. Patient was given a work note. All question concerns answered she is discharged home in stable condition. Lab Data Labs: Laboratory Results - last 24 hr 11/09/23 09:15 Urine Color Yellow Urine Clarity Clear Urine pH 6.5 Ur Specific [place] 1.015 Urine Protein 15 H Urine Glucose (UA) Normal Urine Ketones Negative Urine Occult Blood 10 H Urine Nitrite Negative Urine Bilirubin Negative Urine Urobilinogen Normal Ur Leukocyte Esterase 100 H Urine RBC 0-5 SEEN Urine WBC 0-5 SEEN Ur Squamous Epith Cells 0-5 SEEN Ur Transition Epith Cell 0-5 SEEN Ur Renal Epithelial Cell 0-5 SEEN Urine Bacteria 2+ Urine Mucus 0 SEEN Urine Test Negative Discharge Plan Triage Chief Complaint: Complaint ED Provider: Javier Burnett Dx/Rx/DC Orders Clinical Impression: Urinary tract infection Prescriptions: New cephalexin 500 mg capsule 500 mg PO BID 5 Days Qty: 10 0RF No Action aspirin 81 mg tablet,delayed release (DR/EC) 81 mg PO DAILY carvedilol 6.25 mg tablet 6.25 mg PO BID Qty: 180 0RF Rx Instructions: must administer with a meal/food Stand Alone Forms: ED Work / School Excuse Primary Care Provider: Care Physician,No Primary Referrals: Rocky Cantrell MD [Med Staff - Active Staff] - Care Physician,No Primary [Primary Care Provider] - Activity Restrictions/Additional Instructions: Follow-up on urine culture results. Take antibiotics as prescribed. Return with worsening symptoms or other concerns. Print Language: German Disposition Disposition: Home, Self Care
[2023-11-09 09:19] LABS: Mucous, Urine 0 SEEN /hpf (<or=2+)
[2023-11-09 09:29] LABS: Color, Urine Yellow (Yellow); Glucose, Dipstick Normal (Normal); Ketone-Dipstick Negative (Negative); Leukocyte Esterase-Dipstick 100 /ul (Negative); Nitrite-Dipstick Negative (Negative); Occult Blood-Urine 10 /ul (Negative); Protein-Dipstick 15 mg/dl (Negative); Specific Gravity, Urine 1.015 (1.002-1.030); Urine Bilirubin Dipstick Negative (Negative); Urine Clarity Clear (Clear); Urine Urobilinogen Normal (Normal); Urine pH 6.5 (5.0 - 8.0)
[2023-11-09 09:38] LABS: Bacteria 2+ /hpf (None Seen); Renal Epithelial Cells 0-5 SEEN /hpf (0-5); Squamous Epithelial Cells - UA 0-5 SEEN /hpf (5-10); Transitional Epithelial - Ur 0-5 SEEN /hpf (0-5); White Blood Cells 0-5 SEEN /hpf (0-5)
[2023-11-09 09:39] LABS: Red Blood Cells-Urine 0-5 SEEN /hpf (0-5)
[2023-11-09 09:40] LABS: Internal QC Validated? YES +Cl - CLEAR BKGD; Pregnancy, Urine Negative Negative
== END 2023-11-09 10:20 | disposition home or self-care (01) ==
PROVIDERS: Emergency Provider Emergency Medicine; Visit Provider Emergency Medicine
DX: N39.0 Urinary tract infection, site not specified (principal); I10 Essential (primary) hypertension; I25.10 Atherosclerotic heart disease of native coronary artery without angina pectoris; I25.2 Old myocardial infarction; E66.9 Obesity, unspecified; F17.200 Nicotine dependence, unspecified, uncomplicated; Z79.82 Long term (current) use of aspirin; Z79.899 Other long term (current) drug therapy
CPT/HCPCS: 81001; 81025; 87086; 87088; 99283

== ENCOUNTER 2024-01-12 08:20 | Emergency (ER) | payer SELFPAY ==
[2024-01-12 08:20] VITALS: BP 132/80; PULSE 95; RESP 18; TEMP 36.6; O2SAT 100; BMI 31.2
--- NOTE | 2024-01-12 08:52 | RAD_ITS ---
STUDY: X-RAY CHEST REASON FOR EXAM: Female, 53 years old. Cough and fever TECHNIQUE: PA and lateral views of the chest. COMPARISON: Comparison is made with prior study dated March 21, 2022. FINDINGS: The lungs are clear and expanded. Azygos lobe. This is a normal variant. There is no demonstrated pleural abnormality. Normal size heart. Normal mediastinum and hernan. Normal visualized pulmonary arteries. Normal visualized aortic arch and descending thoracic aorta. Normal visualized thoracic spine. Normal visualized ribs, clavicles, and shoulders. There is no demonstrated abnormality of the visualized soft tissue structures of the upper abdomen. RAD/Chest PA and Lateral IMPRESSION: Normal x-ray examination of the chest. Electronically Signed: Cale Madison MD at 9:27 EST ,
--- NOTE | 2024-01-12 08:52 | EX.ED.DYSGE1 ---
HPI History of Present Illness Chief Complaint: General Illness Informant: patient Narrative Narrative: 53-year-old female presenting to the emergency room with cough and fever. Patient states that she had been doing well earlier in the week. On Tuesday she began to feel ill experiencing fever fatigue nasal congestion intermittent headache and myalgias. She states that last night she developed a cough. Right lower mid axillary chest is sore when she coughs. No sputum production. No rashes. She is a smoker and notes that she has been unable to smoke. No nausea vomiting or diarrhea but does note decreased appetite. 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 NSTEMI (non-ST elevated myocardial infarction) Chest pain SVT (supraventricular tachycardia) Iron deficiency anemia Obesity (BMI 30.0-34.9) Tobacco use Home Medications ?Medication ?Instructions ?Recorded ?Last Taken ?Type aspirin 81 mg tablet,delayed 81 mg PO DAILY 05/05/22 Unknown History release cephalexin 500 mg capsule 500 mg PO BID 5 days #10 caps 11/09/23 Unknown Rx carvedilol 6.25 mg tablet 6.25 mg PO BID #180 tabs 12/09/23 Unknown Rx Allergy/AdvReac Type Severity Reaction Status Date / Time No Known Allergies Allergy Verified 11/09/23 08:52 Family History Father Diabetes Myocardial infarction CAD (coronary artery disease) CABG Mother Diabetes Myocardial infarction Grandfather CVA (cerebral vascular accident) Sister , age 45 Colon cancer Brother Kidney disease on dialysis Surgical History History of left heart catheterization (~2018) History of tubal ligation Social History Smoking Status: Heavy Smoker (>10/day) alcohol intake: never substance use type: does not use caffeine: Yes Type: tea Number of servings: 1 ROS ROS ED Constitutional Constitutional ED: Reports chills, fever(s) and sweats; Denies weight loss Eyes Eyes: Denies change in vision or diplopia ENT ENT ED: Reports rhinorrhea and sore throat; Denies ear pain Cardiovascular Cardiovascular: Reports chest pain; Denies orthopnea, palpitations or racing heartbeat Respiratory/Chest Respiratory/Chest: Reports cough and dyspnea on exertion; Denies orthopnea Gastrointestinal Gastrointestinal: Denies abdominal pain, diarrhea, nausea or vomiting Genitourinary Genitourinary ED: Denies dysuria, hematuria or urinary frequency Musculoskeletal Musculoskeletal: Reports myalgias; Denies arthralgias Integumentary Denies abscess or rash Neurologic Neurologic: Reports headache(s); Denies weakness Psychiatric Psychiatric: Denies anxiety, depression, suicidal ideation or suicidal thoughts Endocrine Endocrinology: Denies polydipsia, polyphagia or polyuria Allergic/Immunologic Allergic/Immunologic ED: Denies mouth swelling, tongue swelling or urticaria EXAM Physical Exam Const Vital Signs: 01/12/24 08:20 01/12/24 09:31 Temperature 97.9 F Temperature Source Oral Pulse Rate 95 Respiratory Rate 18 Respiratory Effort Normal Non-Labored Respiratory Pattern Normal Blood Pressure 132/80 H Blood Pressure Mean 97 Pulse Ox 100 Oxygen Delivery Method Room Air Positive well nourished and well developed General Appearance ED: well developed HEENT Reports normocephalic, head/scalp atraumatic and moist mucous membranes HEENT Narrative: Nasal congestion/turbinate edema Eyes PERRL and EOMs intact bilaterally Neck no lymphadenopathy, supple and no JVD Resp normal respiratory effort and clear to auscultation bilaterally Cardio regular rate, regular rhythm and no murmurs GI normal to inspection, nondistended, normoactive bowel sounds and non-tender Palpation: soft Back/Spine no CVA tenderness and normal ROM Extremity normal to inspection General Extremety ED: Negative for edema General Extremity: Negative for edema Neuro oriented x3 and CN's II-XII intact bilaterally Sensorium / Orientation: alert Motor Exam: strength 5/5 throughout Psych mental status grossly normal Mood & Affect: Negative for depressed or tearful Skin no rashes or lesions noted and no wounds MDM MDM MDM Narrative Medical decision making narrative: Differential diagnosis includes but not limited to viral syndrome bronchitis pneumonia URI bronchospasm Patient white count 8.1 hemoglobin 12.8 platelet count of 248. BMP with a glucose of 261. Negative interpretation of the chest x-ray is no acute process no definitive infiltrate. Patient's COVID test is positive. Patient was advised of the above findings. Recommend PCP follow-up for the elevated glucose. Patient was instructed on self-care. Return if worsening or concerns History & Record Review Discussion w/independent historian: Patient Lab Data Attestation: I reviewed the patient's lab results. Labs: Laboratory Results - last 24 hr 01/12/24 08:40 WBC 8.1 RBC 5.20 Hgb 12.8 Hct 40.3 MCV 77.5 L MCH 24.6 L MCHC 31.8 L RDW Std Deviation 45.1 H RDW Coeff of [place] 15.9 H Plt Count 248 MPV 10.5 Immature Gran % (Auto) 0.500 Neut % (Auto) 56.7 Lymph % (Auto) 27.7 [place] % (Auto) 13.7 H Eos % (Auto) 0.9 Baso % (Auto) 0.5 Absolute Neuts (auto) 4.6 Absolute Lymphs (auto) 2.24 Nucleated RBC % 0 Sodium 137 Potassium 3.5 Chloride 104 Carbon Dioxide 26.0 Anion Gap 7 BUN 14 Creatinine 0.93 Estim Creat Clear Calc 64.05 Est GFR (MDRD) Af Amer 81 Est GFR (MDRD) Non-Af 67 BUN/Creatinine Ratio 15.1 Glucose 261 H Calcium 8.9 Radiography Diagnostic Testing: Clinical Impression(s) from Imaging Studies Chest X-Ray 01/12/24 08:52 IMPRESSION: Normal x-ray examination of the chest. Electronically Signed: Cale Madison MD at 9:27 EST Reading Location ID and State: [facility] / [place] , Service support , Discharge Plan Triage Chief Complaint: General Illness ED Provider: Ted Kennedy Dx/Rx/DC Orders Clinical Impression: COVID-19, Cough Instructions: Coronavirus Disease 2019 (COVID-19): Caring for Yourself or Others Prescriptions: No Action aspirin 81 mg tablet,delayed release (DR/EC) 81 mg PO DAILY cephalexin 500 mg capsule 500 mg PO BID 5 Days Qty: 10 0RF carvedilol 6.25 mg tablet 6.25 mg PO BID Qty: 180 0RF Rx Instructions: must administer with a meal/food Primary Care Provider: Care Physician,No Primary Referrals: Care Physician,No Primary [Primary Care Provider] - Activity Restrictions/Additional Instructions: Continue Tylenol Motrin as needed for pain and fever. Please monitor cough for changes Print Language: Liberian Disposition Disposition: Home, Self Care
[2024-01-12 09:01] LABS: Absolute Lymphocyte Count 2.24 X10^3/uL (0.83-4.51); Absolute Neutrophil Count 4.6 X10^3/uL (2.0-7.7); Basophil# 0.04 X10^3/uL; Basophil% 0.5 % (0-1); Eosinophil# 0.07 X10^3/uL; Eosinophils% 0.9 % (0-5); Hematocrit 40.3 % (37-47); Hemoglobin 12.8 g/dL (12.0-15.0); Lymphocyte # 2.24 X10^3/ul (0.83-4.51); Lymphocyte % 27.7 % (19-41); Mean Corp Hgb Conc 31.8 g/dL (32-36); Mean Corpuscular Hgb 24.6 pg (27.0-32.0); Mean Corpuscular Volume 77.5 fL (81-99); Mean Platelet Vol. 10.5 fl (6.2-12.0); Monocyte# 1.11 X10^3/uL; Monocyte% 13.7 % (0-10); NRBC Flagged by Analyzer 0 % (0-5); Neutrophil % 56.7 % (47-70); Platelet Count 248 K/mm3 (150-450); RBC Distribution Width CV 15.9 % (11.6-14.6); RBC Distribution Width SD 45.1 fl (35.1-43.9); White Blood Count 8.1 K/mm3 (4.4-11.0)
[2024-01-12] MEDS: Ketorolac 30 MG/ML Syringe IV (09:02)
[2024-01-12 09:25] LABS: Anion Gap 7 (5-15); BUN 14 mg/dL (7-18); BUN/Creat Ratio 15.1 RATIO (10-20); Calcium,Total 8.9 mg/dL (8.5-10.1); Chloride 104 mmol/L (98-107); Creatinine, Serum 0.93 mg/dL (0.55-1.02); EST Glomerular Filtration Rate 67 mL/min (>60); Est Glom Filt Rate - Afr Amer 81 mL/min (>60); Estimated Creatinine Clearance 64.05 ml/min; Glucose 261 mg/dL (74-106); Potassium 3.5 mmol/L (3.5-5.1); Sodium Level 137 mmol/L (136-145)
[2024-01-12 10:32] VITALS: BP 132/78; PULSE 72; RESP 18; TEMP 36.8; O2SAT 96
== END 2024-01-12 10:33 | disposition home or self-care (01) ==
PROVIDERS: Emergency Provider Emergency Medicine; Visit Provider Emergency Medicine
DX: U07.1 COVID-19 (principal); R73.09 Other abnormal glucose; I10 Essential (primary) hypertension; I25.2 Old myocardial infarction; I25.10 Atherosclerotic heart disease of native coronary artery without angina pectoris; E66.9 Obesity, unspecified; F17.200 Nicotine dependence, unspecified, uncomplicated; Z79.82 Long term (current) use of aspirin; Z79.899 Other long term (current) drug therapy
CPT/HCPCS: 71046; 80048; 85025; 87631; 96374; 99283; A4216

== ENCOUNTER → 2024-10-13 | Outpatient (CLI) | payer MEDICAID, SELFPAY ==
--- OUTSIDE RECORDS SUMMARY | 2024-10-13 09:20 | XMS RPT_ITS | CCD ---
Author Organization [facility] Care Team Providers Care Supervisor Color Paste Mixing Name Role Phone DANI WILLIS Unavailable Unavailable ROCKY AGUILAR Unavailable IMCA Unavailable Unavailable MAIKEL STROUD Unavailable Unavailable IMCA Unavailable Unavailable IMCA Unavailable Unavailable DANI WILLIS Attending Unavailable ROCKY AGUILAR Referring Unavailable MAIKEL STROUD Attending Unavailable CONY BARNETT Referring Unavailable Unavailable Primary Care Provider UnavailRocky Diamond Unavailable Cony Barnett Primary Care Provider Care Physician, No Primary Primary Care Provider Unavailable Dr. Quinn Segovia Attending Provider [phone] ISMA VANCE Attending Unavailable Rocky Aguilar MD Unavailable Cony Barnett CNP Primary Care Provider [phone] Care Physician, No Primary Primary Care Unava ilable Mack Friedman Attending Unavailable Care Physician, No Primary Primary Care Unava ilable Javier Burnett Attending Unavailable Care Physician, No Primary Primary Care Unava ilable Ted Kennedy Attending Unavailable Care Physician, No Primary Primary Care Unava ilable Care Physician, No Primary Referring Unava ilable Fiordaliza Fields Attending Unavailable Medications Current Medications Medication Drug Class(es) Dates Sig (Normalized) Sig (Original) [id number] 200 actuat albuterol 0.09 mg/actuat metered dose inhaler (3 sources) beta2-Adrenergic Agonist Start: 06-04-2021 take 2 puff(s) by inhalation every four hours as needed for wheezing albuterol HFA (VENTOLIN HFA) 90 mcg/actuation inhaler Indications: Cough , Tobacco use Inhale 2 Puffs as instructed every 4 hours as needed for wheezing/shortness of breath. 1 Inhaler 06/04/2021 Active Comment on above: Inhale 2 Puffs as in structed every 4 hours as needed for wheezing/shortness of breath. aspirin 81 mg delayed release oral tablet (5 sources) Platelet Aggregation Inhibitor, Nonsteroidal Anti-inflammatory Drug Start: 05-05-2022 take 81 mg by mouth once daily Aspirin Active 81 MG PO DAILY May 05, 2022 12:00am Comment on above: Take 81 mg by mouth once daily. carvedilol 6.25 mg oral tablet (2 sources) alpha-Adrenergic Leslie, beta-Adrenergic Leslie Start: 05-05-2022 take 6.25 mg by mouth twice daily at mealtime Carvedilol Active 6.25 MG PO TWICE A DAY 180 May 05, 2022 12:00am must administer with a meal/food ferrous sulfate 325 mg oral tablet (3 sources) take 1 tablet by mouth twice daily ferrous sulfate 325 mg (65 mg iron) tablet Take 325 mg by mouth twice daily. Active Comment on above: Take 325 mg by mouth twice daily. metFORMIN hydrochloride 500 mg oral tablet (2 sources) Biguanide Start: 05-05-2022 take 500 mg by mouth once daily Metformin Active 500 MG PO DAILY May 05, 2022 12:00am phenazopyridine hydrochloride 200 mg oral tablet (4 sources) Start: 08-14-2019 take 1 tablet by mouth three times daily Phenazopyridine (Pyridium) 200 mg tablet Active 200 MG PO THREE TIMES A DAY November 24, 2022 12:00am Comment on above: Take 1 tablet by venu three times daily as needed. predniSONE 10 mg oral tablet (2 sources) Start: 06-04-2021 End: 06-16-2021 predniSONE (DELTASONE) 10 mg tablet Indications: Cough , Tobacco use Take 6 tabs for 3 days, then 4 tabs for 3 days, then 2 tabs for 3 days then 1 tab for 3 days with food. 39 tablet 0 06/04/2021 06/16/2021 Active Comment on above: Take 6 tabs for 3 da ys, then 4 tabs for 3 days, then 2 tabs for 3 days then 1 tab for 3 days with food. sulfamethoxazole 800 mg / trimethoprim 160 mg oral tablet (1 source) Dihydrofolate Reductase Inhibitor Antibacterial, Sulfonamide Antimicrobial Start: 10-04-2023 take 1 tablet by mouth twice daily Sulfamethoxazole-Tr imethoprim (Bactrim Ds) 800-160 mg tablet Active 1 TABLET PO TWICE A DAY November 24, 2022 12:00am Completed/Discontinued Medications Medication Drug Class(es) Dates Sig (Normalized) Sig (Original) 24 hr dilTIAZem hydrochloride 120 mg extended release oral capsule (3 sources) Calcium Channel Leslie Start: 03-21-2022 End: 05-05-2022 take 1 capsule by mouth once daily, then take 1 capsule by mouth every twenty-four hours Diltiazem Hcl (Cardizem Cd) 120 mg capsule,extended release 24hr Discontinued 120 MG PO DAILY March 21, 2022 1:00am May 05, 2022 9:25am ferrous gluconate 324 mg oral tablet (3 sources) Start: 07-23-2016 End: 11-19-2017 take 325 mg by mouth three times daily at mealtime Ferrous Gluconate Discontinued 325 MG PO 3 TIMES DAILY WITH MEALS 100 July 23, 2016 12:00am November 19, 2017 11:02pm metoprolol tartrate 50 mg oral tablet (9 sources) beta-Adrenergic Leslie Start: 12-19-2017 End: 05-26-2018 take 50 mg by mouth twice daily Metoprolol Tartrate Discontinued 50 MG PO TWICE A DAY 60 December 19, 2017 12:00am May 26, 2018 10:32am Start: 11-21-2017 End: 12-19-2017 take 50 mg by mouth twice daily Metoprolol Tartrate Discontinued 50 MG PO TWICE A DAY 60 30 November 21, 2017 12:00am December 19, 2017 1:39pm Comment on above: Take 50 mg by mouth twice daily. Problems Active Problems Problem Classification Problem Date Documented Date Episodic/Chronic Cardiac and circulatory congenital anomalies (15 sources) Malformation of coronary vessels; Translations: [Congenital malformation of heart, unspecified] Onset: 12-21-2017 12-21-2017 Chronic Cardiac dysrhythmias (11 sources) Supraventricular tachycardia; Translations: [Supraventricular tachycardia] Onset: 12-21-2017 12-21-2017 Chronic Coronary atherosclerosis and other heart disease (6 sources) Old myocardial infarction; Translations: [Old myocardial infarction] Onset: 06-21-2024 12-27-2018 Chronic Deficiency and other anemia (3 sources) Iron deficiency anemia; Translations: [Iron deficiency anemia, unspecified] 05-26-2018 Episodic Diabetes mellitus without complication (3 sources) Acute hyperglycemia; Translations: [Hyperglycemia, unspecified] 03-21-2022 Episodic Essential hypertension (3 sources) Hypertensive disorder; Translations: [Essential (primary) hypertension] Onset: 06-21-2024 10-22-2022 Chronic Nonspecific chest pain (7 sources) Other chest pain; Translations: [Chest pain] Onset: 12-21-2017 12-21-2017 Episodic Other lower respiratory disease (2 sources) Cough; Translations: [Cough] Episodic Other nutritional; endocrine; and metabolic disorders (3 sources) Obese class I; Translations: [Obesity, unspecified] 06-27-2020 Chronic Other upper respiratory infections (1 source) Acute upper respiratory infection; Translations: [Acute upper respiratory infection, unspecified] Episodic Residual codes; unclassified (4 sources) Tobacco use and exposure - finding; Translations: [Tobacco use] Episodic Substance-related disorders (3 sources) Nicotine dependence; Translations: [Nicotine dependence, unspecified, uncomplicated] Onset: 06-21-2024 10-22-2022 Chronic Transient cerebral ischemia (3 sources) Transient cerebral ischemia; Translations: [Transient cerebral ischemic attack, unspecified] 06-28-2020 Chronic Unclassified (1 source) Unknown / UNK(Unknown) Onset: 12-21-2017 Unclassified (1 source) Cough, unspecified; Translations: [Cough, unspecified] Onset: 02-10-2024 Urinary tract infections (1 source) Urinary tract infectious disease; Translations: [Urinary tract infection, site not specified] 11-24-2022 Episodic Past or Other Problems Problem Classification Problem Date Documented Da te Episodic/Chronic Genitourinary symptoms and ill-defined conditions (1 source) Dysuria; Translations: [Dysuria] Onset: 12-01-2023 Episodic Results Test Name Value Interpretation Reference Range Facility Cardiology Visit Reporton Cardiology Visit Report [facility] [address] [place] [address] OFFICE VISIT Date of Service: 06/21/24 MR#: [id number] Acct: [id number] Name: ISAAC RED Rep #: [id number] : 1970 Provider: Dr. Fiordaliza Fields MD Age/Sex: 53/F Location: [facility] Status: Signed HPI HPI History of Present Illness Details: This lady with history of SVT is here for a follow-up visit. Denies any palpitations. Occasional chest pains that she describes as a pressure across her chest. Last a couple of minutes only. Mostly occur at rest. No radiation to the arm neck or jaw. No relationship to exertion. No associated shortness of breath. No diaphoresis. No orthopnea PND. No ankle edema. Unfortunately patient continues to smoke. Intake Vital Signs 01/12/24 08:20 06/21/24 08:10 Height 5 ft 1 in 5 ft 1 in Weight: 157 lb BMI 29.6 BP 125/84 H Blood Pressure Location Lt brachial Position Sitting Respiration 18 Pulse 85 Pulse Source NIBP Intake Visit Reasons: OVERDUE FU Line Decorator Required: No Accompanied by: Daughter Is patient in pain?: No Allergies No Known Allergies Allergy (Verified 06/21/24 10:38) Medications ???Medication ???Instructions ???Recorded ???Confirmed ???Type aspirin 81 mg tablet,delayed 81 mg PO DAILY 05/05/22 06/21/24 H istory release carvedilol 6.25 mg tablet 6.25 mg PO BID #180 tabs 12/09/23 06/21/24 Rx cholecalciferol (vitamin D3) PO DAILY 06/21/24 06/21/24 History [id number] fum-folic ac-om3 PO DAILY 06/21/24 06/21/24 History [One A Day Women's DHA] Ejection fraction %: 60 Have you fallen in the past year?: Yes (no major injury; trip/slip) PFSH Medical History Anomalous origin of right coronary artery Chest pain Congenital heart disease Coronary artery disease Hypertension Iron deficiency anemia Nicotine dependence NSTEMI (non-ST elevated myocardial infarction) Obesity (BMI 30.0-34.9) Old myocardial infarction Pre-diabetes SVT (supraventricular tachycardia) Tobacco abuse Tobacco use Surgical History History of left heart catheterization ( 2018) History of tubal ligation Family History Father Diabetes Myocardial infarction CAD (coronary artery disease) CABG Mother Diabetes Myocardial infarction Grandfather CVA (cerebral vascular accident) Sister , age 45 Colon cancer Brother Kidney disease on dialysis Social History Smoking Status: Heavy Smoker (>10/day) alcohol intake: never substance use type: does not use caffeine: Yes Type: tea Number of servings: 1 ROS Const Const: Negative for fatigue, weakness, headache(s) or weight gain ENT ENT: Negative for headache(s), dizziness, Nosebleed/epistaxis or balance problems Cardio Chest Pain: Yes Frequency: other (with stress per pt) Character: tightness and other (heaviness) Onset: other (stress) Location: mid sternal and other (shocking pain R-shoulder/neck) Palpitations: No Edema: None Muscle aches with walking: None Resp Respiratory: Positive for SOB with activity and SOB at rest; Negative for SOB orthopnea SOB lying down GI GI: Negative nausea, vomiting or heartburn Musc Musc: Negative for muscle aches/ myalgia, muscle weakness, joint pain or balance problems Neuro Neuro: Positive for lightheadedness; Negative for dizziness, near syncope, syncope, headache(s) or weakness Endo Endo: Negative for fatigue Psych Psych: Positive for anxiety Cardiology Exam Const Appearance: comfortable and no acute distress Nutritional Appearance: well nourished Neck Neck: no JVD Carotids: Negative bruit Chest Auscultation: Bilateral: Clear to Auscultation Cardio Rate: regular rate Rhythm: regular rhythm Heart sounds: S1 normal and S2 normal Neuro General: patient alert, patient awake and patient oriented x3 Extremities Lower Extremity Edema: None: Bilateral Supplemental Info Supplemental Information ECHOCARDIOGRAM 05/20/2022: Interpretation Summary The left ventricular ejection fraction is 60 %. Cannot rule out tiny PFO. ECHOCARDIOGRAM 07/20/2019: Interpretation Summary The estimated ejection fraction is 65 %. Stage 1 diastolic dysfunction. Trivial tricuspid valve insufficiency. Right ventricular systolic pressure estimated to be 25 mmHg. Compared to echo report dated 11/21/2017 no appreciable changes noted. STRESS ECHO 06/02/2018: Stress Results Heart rate response: Appropriate Blood pressure response: Normal resting blood pressure-appropriate response Arrhythmias: None Functional capacity: Good Stopped secondary to: Dyspnea; fatigue. (more content not included)... Normal [facility] Basic Metabolic Profile (BMP )on 01-12-2024 BUN/CRE 15.1 RATIO Normal 10-20 [facility] Comment on above: Performed By: #### L 100.0100, L500.2500 ####[facility] [address] [place], [address] CA,Total 8.9 mg/dL Normal 8.5-10.1 [facility] Comment on above: Performed By: #### L 100.0100, L500.2500 ####[facility] [address] [place], [address] Chloride [Moles/Vol] 104 mmol/L Normal 98-107 [facility] Comment on above: Performed By: #### L 100.0100, L500.2500 ####[facility] [address] [place], [address] CO2 [Moles/Vol] 26.0 mmol/L Normal 21.0-32.0 [facility] Comment on above: Performed By: #### L 100.0100, L500.2500 ####[facility] [address] [place], [address] Creatinine [Mass/Vol] 0.93 mg/dL Normal 0.55-1.02 [facility] Comment on above: Result Comment: The validity of the calculated GFR GFRAA in patients over 70 years has not been determined. Clinical correlation is essential. Performed By: #### L 100.0100, L500.2500 ####[facility] [address] [place], [address] ECRCL 64.05 ml/min Normal [facility] Comment on above: Performed By: #### L 100.0100, L500.2500 ####[facility] [address] [place], [address] EST GFR - AA 81 mL/min Normal >60 [facility] Comment on above: Result Comment: Afri can Australian GFR Calc Performed By: #### L 100.0100, L500.2500 ####[facility] [address] [place], [address] GAP 7 Normal 5-15 [facility] Comment on above: Performed By: #### L 100.0100, L500.2500 ####[facility] [address] [place], [address] GFR/1.73 sq M.predicted among non-blacks MDRD (S/P/Bld) [Vol rate/Area] 67 mL/min/{1.73_m2} Normal >60 [facility] Comment on above: Result Comment: Non- GFR Calc Performed By: #### L 100.0100, L500.2500 ####[facility] [address] [place], [address] Glucose [Mass/Vol] 261 mg/dL High 74-106 [facility] Comment on above: Result Comment: Gluc ose result greater than or equal to 200 mg/dL suggests DIABETES MELLITUS per A.D.A. criteria. Performed By: #### L 100.0100, L500.2500 ####[facility] [address] [place], [address] Potassium [Moles/Vol] 3.5 mmol/L Normal 3.5-5.1 [facility] Comment on above: Performed By: #### L 100.0100, L500.2500 ####[facility] [address] [place], [address] Sodium [Moles/Vol] 137 mmol/L Normal 136-145 [facility] Comment on above: Performed By: #### L 100.0100, L500.2500 ####[facility] [address] [place], [address] Urea nitrogen [Mass/Vol] 14 mg/dL Normal 7-18 [facility] Comment on above: Performed By: #### L 100.0100, L500.2500 ####[facility] [address] [place], [address] CBC W/Diff, Automatedon 11-2 Absolute Lymph 2.24 X10 3/uL Normal 0.83-4.51 [facility] Comment on above: Performed By: #### L 100.0100, L500.2500 ####[facility] [address] [place], [address] Absolute Neut 4.6 X10 3/uL Normal 2.0-7.7 [facility] Comment on above: Performed By: #### L 100.0100, L500.2500 ####[facility] [address] [place], [address] Basophils/100 WBC (Bld) 0.5 % Normal 0-1 [facility] Comment on above: Performed By: #### L 100.0100, L500.2500 ####[facility] [address] [place], [address] Eosinophils/100 WBC (Bld) 0.9 % Normal 0-5 [facility] Comment on above: Performed By: #### L 100.0100, L500.2500 ####[facility] [address] [place], [address] Erythrocyte distribution width (RBC) [Ratio] 15.9 % High 11.6-14.6 [facility] Comment on above: Performed By: #### L 100.0100, L500.2500 ####[facility] [address] [place], [address] Hematocrit (Bld) [Volume fraction] 40.3 % Normal 37-47 [facility] Comment on above: Performed By: #### L 100.0100, L500.2500 ####[facility] [address] [place], [address] Hemoglobin (Bld) [Mass/Vol] 12.8 g/dL Normal 12.0-15.0 [facility] Comment on above: Performed By: #### L 100.0100, L500.2500 ####[facility] [address] [place], [address] IG% 0.500 Normal 0.0-0.9 [facility] Comment on above: Result Comment: IG% - Immature Granulocytes (promyelocytes, myelocytes and metamyelocytes) > 1% indicates that a LEFT SHIFT is Present. Performed By: #### L 100.0100, L500.2500 ####[facility] [address] [place], [address] Lymphocytes/100 WBC (Bld) 27.7 % Normal 19-41 [facility] Comment on above: Performed By: #### L 100.0100, L500.2500 ####[facility] [address] [place], [address] MCH (RBC) [Entitic mass] 24.6 pg Low 27.0-32.0 [facility] Comment on above: Performed By: #### L 100.0100, L500.2500 ####[facility] [address] [place], [address] MCHC (RBC) [Mass/Vol] 31.8 g/dL Low 32-36 [facility] Comment on above: Performed By: #### L 100.0100, L500.2500 ####[facility] [address] [place], [address] MCV (RBC) [Entitic vol] 77.5 fL Low 81-99 [facility] Comment on above: Performed By: #### L 100.0100, L500.2500 ####[facility] [address] [place], [address] Monocytes/100 WBC (Bld) 13.7 % High 0-10 [facility] Comment on above: Performed By: #### L 100.0100, L500.2500 ####[facility] [address] [place], [address] Neutrophils/100 WBC (Bld) 56.7 % Normal 47-70 [facility] Comment on above: Performed By: #### L 100.0100, L500.2500 ####[facility] [address] [place], [address] Nucleated RBC (Bld) [#/Vol] 0 10*3/uL Normal 0-5 [facility] Comment on above: Performed By: #### L 100.0100, L500.2500 ####[facility] [address] [place], [address] Platelet mean volume (Bld) [Entitic vol] 10.5 fL Normal 6.2-12.0 [facility] Comment on above: Performed By: #### L 100.0100, L500.2500 ####[facility] [address] [place], [address] Platelets (Bld) [#/Vol] 248 10*3/uL Normal 150-450 [facility] Comment on above: Performed By: #### L 100.0100, L500.2500 ####[facility] [address] [place], [address] RBC (Bld) [#/Vol] 5.20 10*6/uL Normal 4.2-5.4 [facility] Comment on above: Performed By: #### L 100.0100, L500.2500 ####[facility] [address] [place], [address] RDW SD 45.1 fl High 35.1-43.9 [facility] Comment on above: Performed By: #### L 100.0100, L500.2500 ####[facility] [address] [place], [address] WBC (Bld) [#/Vol] 8.1 10*3/uL Normal 4.4-11.0 [facility] Comment on above: Performed By: #### L 100.0100, L500.2500 ####[facility] [address] [place], [place], [id number] Chest PA and Lateralon 01-11 Chest PA and Lateral [facility] [address] [place] [address] Chest PA and Lateral MR#: [id number] Acct: [id number] Name: ISAAC RED Rep #: [id number] : 1970 F 53 From: Cale foy MD PCP: Care Physician,No Primary Status: REG ER Study: Chest PA and Lateral Date of Exam: 01/12/24 Exam# [id number] Ordering Dr: Ted Kennedy DO [id number] STUDY: X-RAY CHEST REASON FOR EXAM: Female, 53 years old. Cough and fever TECHNIQUE: PA and lateral views of the chest. COMPARISON: Comparison is made with prior study dated March 21, 2022. FINDINGS: The lungs are clear and expanded. Azygos lobe. This is a normal variant. There is no demonstrated pleural abnormality. Normal size heart. Normal mediastinum and hernan. Normal visualized pulmonary arteries. Normal visualized aortic arch and descending thoracic aorta. Normal visualized thoracic spine. Normal visualized ribs, clavicles, and shoulders. There is no demonstrated abnormality of the visualized soft tissue structures of the upper abdomen. RAD/Chest PA and Lateral IMPRESSION: Normal x-ray examination of the chest. Electronically Signed: Cale Madison MD at 9:27 EST , CC: Dr. Ted Kennedy DO; No Primary Care Physician [employer] Boards Inspector: Signed Normal [facility] Emergency Department Summary on 01-12-2024 Emergency Department Summary [facility] Medical Records Department [address] [place] [address] Emergency Department Summary 01/12/24 MR#: [id number] Acct: [id number] Name: ISAAC RED Rep #: [id number] : 1970 53 From: Ted Kennedy DO PCP: Care Physician,No Primary Status:DEP ER Location: ED HPI History of Present Illness Chief Complaint: General Illness Informant: patient Narrative Narrative: 53-year-old female presenting to the emergency room with cough and fever. Patient states that she had been doing well earlier in the week. On Tuesday she began to feel ill experiencing fever fatigue nasal congestion intermittent headache and myalgias. She states that last night she developed a cough. Right lower mid axillary chest is sore when she coughs. No sputum production. No rashes. She is a smoker and notes that she has been unable to smoke. No nausea vomiting or diarrhea but does note decreased appetite. 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 NSTEMI (non-ST elevated myocardial infarction) Chest pain SVT (supraventricular tachycardia) Iron deficiency anemia Obesity (BMI 30.0-34.9) Tobacco use Home Medications ???Medication ???Instructions ???Recorded ???Last Taken ???Type aspirin 81 mg tablet,delayed 81 mg PO DAILY 05/05/22 Unknown History release cephalexin 500 mg capsule 500 mg PO BID 5 days #10 caps 11/09/23 Unknown Rx carvedilol 6.25 mg tablet 6.25 mg PO BID #180 tabs 12/09/23 Unknown Rx Allergy/AdvReac Type Severity Reaction Status Date / Time No Known Allergies Allergy Verified 11/09/23 08:52 Family History Father Diabetes Myocardial infarction CAD (coronary artery disease) CABG Mother Diabetes Myocardial infarction Grandfather CVA (cerebral vascular accident) Sister , age 45 Colon cancer Brother Kidney disease on dialysis Surgical History History of left heart catheterization ( 2018) History of tubal ligation Social History Smoking Status: Heavy Smoker (>10/day) alcohol intake: never substance use type: does not use caffeine: Yes Type: tea Number of servings: 1 ROS ROS ED Constitutional Constitutional ED: Reports chills, fever(s) and sweats; Denies weight loss Eyes Eyes: Denies change in vision or diplopia ENT ENT ED: Reports rhinorrhea and sore throat; Denies ear pain Cardiovascular Cardiovascular: Reports chest pain; Denies orthopnea, palpitations or racing heartbeat Respiratory/Chest Respiratory/Chest: Reports cough and dyspnea on exertion; Denies orthopnea Gastrointestinal Gastrointestinal: Denies abdominal pain, diarrhea, nausea or vomiting Genitourinary Genitourinary ED: Denies dysuria, hematuria or urinary frequency Musculoskeletal Musculoskeletal: Reports myalgias; Denies arthralgias Integumentary Denies abscess or rash Neurologic Neurologic: Reports headache(s); Denies weakness Psychiatric Psychiatric: Denies anxiety, depression, suicidal ideation or suicidal thoughts Endocrine Endocrinology: Denies polydipsia, polyphagia or polyuria Allergic/Immunologic Allergic/Immunologic ED: Denies mouth swelling, tongue swelling or urticaria EXAM Physical Exam Const Vital Signs: 01/12/24 08:20 01/12/24 09:31 Temperature 97.9 F Temperature Source Oral Pulse Rate 95 Respiratory Rate 18 Respiratory Effort Normal Non-Labored Respiratory Pattern Normal Blood Pressure 132/80 H Blood Pressure Mean 97 Pulse Ox 100 Oxygen Delivery Method Room Air Positive well nourished and well developed General Appearance ED: well developed HEENT Reports normocephalic, head/scalp atraumatic and moist mucous membranes HEENT Narrative: Nasal congestion/turbinate edema Eyes PERRL and EOMs intact bilaterally Neck no lymphadenopathy, supple and no JVD Resp normal respiratory effort and clear to auscultation bilaterally Cardio regular rate, regular rhythm and no murmurs GI normal to inspection, nondistended, normoactive bowel sounds and non-tender Palpation: soft Back/Spine no CVA tenderness and normal ROM Extremity normal to inspection General Extremety ED: Negative for edema General Extremity: Negative for edema Neuro oriented x3 and CN's II-XII intact bilaterally Sensorium / Orientation: alert Motor Exam: strength 5/5 throughout Psych mental status grossly normal Mood Affect: Negative for depressed or tearful Skin no rashes or lesions noted and no wounds MDM MDM MDM Narrative (more content not included)... Normal [facility] M100.678on 01-12-2024 M100.678 Copy of report sent to Infection Control Printer [id number] 01/12/24 0944 BLUCAS. FLUABV+SARS-CoV-2+RSV Pnl Resp MIKKI+probe SARS-CoV-2 (COVID 19) A Positive A INFLUENZA A Negative INFLUENZA B Negative RSV PCR Negative SARS-CoV-2 (COVID 19 PCR) Normal [facility] Comment on above: Performed By: #### M 100.678 #### [facility] [address] [place], [address] Urine Cultureon 11-10-2023 URC Mixed Gram Pos Gram Neg Org [place] Count 11,000-25,000 MIXC Mixed contaminants. Submit a new specimen if indicated. Normal [facility] Comment on above: Performed By: #### M 100.5589 #### [facility] [address] [place], [address] Emergency Department Summary on 11-09-2023 Emergency Department Summary [facility] Medical Records Department [address] [place] [id number] Emergency Department Summary 11/09/23 MR#: [id number] Acct: [id number] Name: ISAAC RED Rep #: [id number] : 1970 53 From: Javier Burnett DO PCP: Care Physician,No Primary Status:REG ER Location: ED HPI History of Present Illness Chief Complaint: Complaint Narrative Narrative: Patient is a 53-year-old female who past medical history of SVT, hole in her heart presented to the emergency department chief complaint of urinary symptoms. States that for the past 3 days she has had urinary tract infection symptoms states that she has had burning and tingling when she urinates. Patient states that she is not sexually active and denies any possibility of STIs. Patient states that she does get UTIs and this feels like a UTI for her. States that her blood pressure appears to be elevated here and states that she has been under a lot of stress at work lately. She is requesting a work note. PFS PFS Medical History Nicotine dependence Hypertension Coronary artery disease Pre-diabetes Old myocardial infarction Tobacco abuse Anomalous origin of right coronary artery Congenital heart disease NSTEMI (non-ST elevated myocardial infarction) Chest pain SVT (supraventricular tachycardia) Iron deficiency anemia Obesity (BMI 30.0-34.9) Tobacco use Home Medications ???Medication ???Instructions ???Recorded ???Last Taken ???Type aspirin 81 mg tablet,delayed 81 mg PO DAILY 05/05/22 Unknown History release carvedilol 6.25 mg tablet 6.25 mg PO BID #180 tabs 07/07/23 Unknown Rx cephalexin 500 mg capsule 500 mg PO BID 5 days #10 caps 11/09/23 Unknown Rx Allergy/AdvReac Type Severity Reaction Status Date / Time No Known Allergies Allergy Verified 11/09/23 08:52 Family History Father Diabetes Myocardial infarction CAD (coronary artery disease) CABG Mother Diabetes Myocardial infarction Grandfather CVA (cerebral vascular accident) Sister , age 45 Colon cancer Brother Kidney disease on dialysis Surgical History History of left heart catheterization ( 2018) History of tubal ligation Social History Smoking Status: Heavy Smoker (>10/day) alcohol intake: never substance use type: does not use caffeine: Yes Type: tea Number of servings: 1 ROS ROS ED ROS Narrative Constitutional: Denies any fevers, chills, headaches, lightness, dizziness Eyes: Denies change in vision double vision blurry vision Cardiovascular: Denies chest pain or palpitations Respiratory: Denies coughing wheezing shortness of breath Abdomen: Denies abdominal pain nausea vomiting diarrhea : Complains of urinary symptoms as noted above Neurological: Denies numbness, weakness, tingling Musculoskeletal: Denies back pain Skin: Denies rashes or lesions EXAM Physical Exam Narrative Exam Narrative: General: Patient lying in bed rest comfortably did not appear to be in acute distress Head: Atraumatic, normocephalic Eyes: PERRL bilaterally, EOMI bilateral, no conjunctival injection noted Neck: Soft, supple, trachea midline Cardiovascular: Regular rate and rhythm no murmurs gallops rubs noted Respiratory: Clear to auscultation bilaterally Abdomen: Soft, nondistended, no tenderness palpation, bowel sounds present x 4, no rebound or guarding on exam Musculoskeletal: No CVA tenderness noted on exam Extremities: +5/5 strength noted in the bilateral upper and lower extremities, radial pulses +2/4 in the bilateral upper extremities Neurological: Patient following commands knew that she was at [facility] year is 2023. Sensation grossly intact, no saddle anesthesia noted Skin: Warm, dry, intact Const Vital Signs: 11/09/23 08:52 11/09/23 08:52 Temperature 97.6 F L 97.6 F L Temperature Source Oral Temporal Pulse Rate 89 89 Respiratory Rate 18 18 Blood Pressure 151/82 H 151/82 H Blood Pressure Mean 105 105 Pulse Ox 97 97 Oxygen Delivery Method Room Air Room Air MDM MDM MDM Narrative Medical decision making narrative: Patient is a 53-year-old female who presented to the emerged part with concern for urinary tract infection. Patient will have a workup performed here on the differential diagnose includes but not limited to urinary tract infection, fungal infection. Once workup is obtained reviewed she will be reevaluated. Patient's urinalysis was reviewed and showed her leukocyte esterase with 2+ bacteria if she is having urinary symptoms we will treat her for urinary tract infection with Keflex this to be sent to her pharmacy. Her urine was sent for culture. S (more content not included)... Normal [facility] ,Urineon 11-09-2023 Beta HCG ( test) Ql (U) Negative Normal [facility] Comment on above: Result Comment: Very dilute urine specimens, as indicated by a low specific gravity, may not contain underwriting service representative levels of hCG. If is still suspected, a first morning urine specimen should be collected 48 hours later and tested. Performed By: #### L 400.1190 #### [facility] [address] [place], [address] Urinalysis, Completeon 11-08 RBC 0-5 SEEN Normal 0-5 [facility] Comment on above: Order Comment: CLEAN CATCH Performed By: #### L 400.0001 #### [facility] [address] [place], [address] BACTERIA 2+ /hpf Normal None Seen [facility] Comment on above: Order Comment: CLEAN CATCH Performed By: #### L 400.0001 #### [facility] [address] [place], [address] EPI,RENAL 0-5 SEEN Normal 0-5 [facility] Comment on above: Order Comment: CLEAN CATCH Performed By: #### L 400.0001 #### [facility] [address] [place], [address] EPI,SQUAMOUS 0-5 SEEN Normal 5-10 [facility] Comment on above: Order Comment: CLEAN CATCH Performed By: #### L 400.0001 #### [facility] [address] [place], [address] EPI,TRANSITION 0-5 SEEN Normal 0-5 [facility] Comment on above: Order Comment: CLEAN CATCH Performed By: #### L 400.0001 #### [facility] [address] [place], [address] WBC 0-5 SEEN Normal 0-5 [facility] Comment on above: Order Comment: CLEAN CATCH Performed By: #### L 400.0001 #### [facility] [address] [place], [address] Mucus Ql (Urine sed) 0 SEEN Normal [facility] Comment on above: Order Comment: CLEAN CATCH Performed By: #### L 400.0001 #### [facility] [address] [place], [address] Basic Metabolic Profile (BMP )on 10-14-2023 BUN/CRE 22.6 RATIO High 10-20 [facility] Comment on above: Performed By: #### L 100.0100, L500.2500 #### [facility] [address] [place], [address] CA,Total 9.1 mg/dL Normal 8.5-10.1 [facility] Comment on above: Performed By: #### L 100.0100, L500.2500 #### [facility] [address] [place], [address] Chloride [Moles/Vol] 105 mmol/L Normal 98-107 [facility] Comment on above: Performed By: #### L 100.0100, L500.2500 #### [facility] [address] [place], [address] CO2 [Moles/Vol] 30.0 mmol/L Normal 21.0-32.0 [facility] Comment on above: Performed By: #### L 100.0100, L500.2500 #### [facility] [address] [place], [address] Creatinine [Mass/Vol] 0.66 mg/dL Normal 0.55-1.02 [facility] Comment on above: Result Comment: The validity of the calculated GFR GFRAA in patients over 70 years has not been determined. Clinical correlation is essential. Performed By: #### L 100.0100, L500.2500 #### [facility] [address] [place], [address] ECRCL 88.79 ml/min Normal [facility] Comment on above: Performed By: #### L 100.0100, L500.2500 #### [facility] [address] [place], [address] EST GFR - AA 119 mL/min Normal >60 [facility] Comment on above: Result Comment: Afri can Australian GFR Calc Performed By: #### L 100.0100, L500.2500 #### [facility] [address] [place], [address] GAP 5 Normal 5-15 [facility] Comment on above: Performed By: #### L 100.0100, L500.2500 #### [facility] [address] [place], [address] GFR/1.73 sq M.predicted among non-blacks MDRD (S/P/Bld) [Vol rate/Area] 98 mL/min/{1.73_m2} Normal >60 [facility] Comment on above: Result Comment: Non- GFR Calc Performed By: #### L 100.0100, L500.2500 #### [facility] [address] [place], [address] Glucose [Mass/Vol] 156 mg/dL High 74-106 [facility] Comment on above: Result Comment: Fast ing Glucose result greater than or equal to 126 mg/dL suggests DIABETES MELLITUS per A.D.A. criteria. Performed By: #### L 100.0100, L500.2500 #### [facility] [address] [place], [address] Potassium [Moles/Vol] 3.6 mmol/L Normal 3.5-5.1 [facility] Comment on above: Performed By: #### L 100.0100, L500.2500 #### [facility] [address] [place], [address] Sodium [Moles/Vol] 140 mmol/L Normal 136-145 [facility] Comment on above: Performed By: #### L 100.0100, L500.2500 #### [facility] [address] [place], [address] Urea nitrogen [Mass/Vol] 15 mg/dL Normal 7-18 [facility] Comment on above: Performed By: #### L 100.0100, L500.2500 #### [facility] [address] [place], [address] CBC W/Diff, Automatedon 08-2 -2023 Absolute Lymph 2.91 X10 3/uL Normal 0.83-4.51 [facility] Comment on above: Performed By: #### L 100.0100, L500.2500 #### [facility] [address] [place], [address] Absolute Neut 6.4 X10 3/uL Normal 2.0-7.7 [facility] Comment on above: Performed By: #### L 100.0100, L500.2500 #### [facility] [address] [place], [address] Basophils/100 WBC (Bld) 0.4 % Normal 0-1 [facility] Comment on above: Performed By: #### L 100.0100, L500.2500 #### [facility] [address] [place], [address] Eosinophils/100 WBC (Bld) 1.4 % Normal 0-5 [facility] Comment on above: Performed By: #### L 100.0100, L500.2500 #### [facility] [address] [place], [address] Erythrocyte distribution width (RBC) [Ratio] 14.5 % Normal 11.6-14.6 [facility] Comment on above: Performed By: #### L 100.0100, L500.2500 #### [facility] [address] [place], [address] Hematocrit (Bld) [Volume fraction] 39.4 % Normal 37-47 [facility] Comment on above: Performed By: #### L 100.0100, L500.2500 #### [facility] [address] [place], [address] Hemoglobin (Bld) [Mass/Vol] 12.3 g/dL Normal 12.0-15.0 [facility] Comment on above: Performed By: #### L 100.0100, L500.2500 #### [facility] [address] [place], [address] IG% 0.500 Normal 0.0-0.9 [facility] Comment on above: Result Comment: IG% - Immature Granulocytes (promyelocytes, myelocytes and metamyelocytes) > 1% indicates that a LEFT SHIFT is Present. Performed By: #### L 100.0100, L500.2500 #### [facility] [address] [place], [address] Lymphocytes/100 WBC (Bld) 28.1 % Normal 19-41 [facility] Comment on above: Performed By: #### L 100.0100, L500.2500 #### [facility] [address] [place], [address] MCH (RBC) [Entitic mass] 24.2 pg Low 27.0-32.0 [facility] Comment on above: Performed By: #### L 100.0100, L500.2500 #### [facility] [address] [place], [address] MCHC (RBC) [Mass/Vol] 31.2 g/dL Low 32-36 [facility] Comment on above: Performed By: #### L 100.0100, L500.2500 #### [facility] [address] [place], [address] MCV (RBC) [Entitic vol] 77.4 fL Low 81-99 [facility] Comment on above: Performed By: #### L 100.0100, L500.2500 #### [facility] [address] [place], [address] Monocytes/100 WBC (Bld) 8.1 % Normal 0-10 [facility] Comment on above: Performed By: #### L 100.0100, L500.2500 #### [facility] [address] [place], [address] Neutrophils/100 WBC (Bld) 61.5 % Normal 47-70 [facility] Comment on above: Performed By: #### L 100.0100, L500.2500 #### [facility] [address] [place], [address] Nucleated RBC (Bld) [#/Vol] 0 10*3/uL Normal 0-5 [facility] Comment on above: Performed By: #### L 100.0100, L500.2500 #### [facility] [address] [place], [address] Platelet mean volume (Bld) [Entitic vol] 10.1 fL Normal 6.2-12.0 [facility] Comment on above: Performed By: #### L 100.0100, L500.2500 #### [facility] [address] [place], [address] Platelets (Bld) [#/Vol] 275 10*3/uL Normal 150-450 [facility] Comment on above: Performed By: #### L 100.0100, L500.2500 #### [facility] [address] [place], [address] RBC (Bld) [#/Vol] 5.09 10*6/uL Normal 4.2-5.4 [facility] Comment on above: Performed By: #### L 100.0100, L500.2500 #### [facility] [address] [place], [address] RDW SD 40.1 fl Normal 35.1-43.9 [facility] Comment on above: Performed By: #### L 100.0100, L500.2500 #### [facility] [address] [place], [address] WBC (Bld) [#/Vol] 10.4 10*3/uL Normal 4.4-11.0 [facility] Comment on above: Performed By: #### L 100.0100, L500.2500 #### [facility] [address] [place], [address] Emergency Department Summary on 10-14-2023 Emergency Department Summary [facility] Medical Records Department [address] [place] [address] Emergency Department Summary 10/14/23 MR#: [id number] Acct: [id number] Name: ISAAC RED Rep #: [id number] : 1970 53 From: Mack Friedman MD PCP: Care Physician,No Primary Status:REG ER Location: ED HPI HPI - Female History of Present Illness Chief Complaint: Complaint Informant: patient Narrative Narrative: Patient with UTI symptoms. Frequency and dysuria. Took azole he said to follow little better initially she has any symptoms for a week. Since she has been tired and rundown. Denies vomiting, diarrhea or fever. No melena. No abdominal pain. Prior similar symptoms: Yes Recent Illness/Hospitalizati on: No 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 NSTEMI (non-ST elevated myocardial infarction) Chest pain SVT (supraventricular tachycardia) Iron deficiency anemia Obesity (BMI 30.0-34.9) Tobacco use Home Medications ???Medication ???Instructions ???Recorded ???Last Taken ???Type aspirin 81 mg tablet,delayed 81 mg PO DAILY 05/05/22 Unknown History release metformin 500 mg tablet 500 mg PO DAILY 05/05/22 Unknown History phenazopyridine 200 mg tablet 200 mg PO TID PRN pain 6 doses #6 11/24/22 Unknown Rx (Pyridium) tabs sulfamethoxazole 800 1 tab PO BID #6 tabs 11/24/22 Unknown Rx mg-trimethoprim 160 mg tablet (Bactrim DS) carvedilol 6.25 mg tablet 6.25 mg PO BID #180 tabs 07/07/23 Unknown Rx Allergy/AdvReac Type Severity Reaction Status Date / Time No Known Allergies Allergy Verified 10/14/23 11:15 Family History Father Diabetes Myocardial infarction CAD (coronary artery disease) CABG Mother Diabetes Myocardial infarction Grandfather CVA (cerebral vascular accident) Sister , age 45 Colon cancer Brother Kidney disease on dialysis Surgical History History of left heart catheterization ( 2018) History of tubal ligation Social History Smoking Status: Current every day smoker tobacco type: cigarettes alcohol intake: never substance use type: does not use caffeine: Yes Type: tea Number of servings: 1 ROS ROS ED ROS Narrative Generalized malaise. Dysuria. Constitutional Constitutional ED: Reports fatigue Eyes Eyes: Denies eye pain ENT ENT ED: Denies dental pain Cardiovascular Cardiovascular: Denies dyspnea on exertion Respiratory/Chest Respiratory/Chest: Denies hemoptysis Gastrointestinal Gastrointestinal: Denies coffee ground emesis Musculoskeletal Musculoskeletal: Reports none Integumentary Denies dry skin Neurologic Neurologic: Denies behavior changes Psychiatric Psychiatric: Denies hallucinations Endocrine Endocrinology: Denies deepening of the voice Hematologic/Lymphatic Hematologic/Lymphatic : Denies lymphadenopathy Allergic/Immunologic Allergic/Immunologic ED: Denies mouth swelling EXAM Physical Exam Narrative Exam Narrative: Well-appearing 53-year-old female. Vital signs stable afebrile. H EENT exam unremarkable. Neck nontender. Lungs clear to auscultation bilaterally. Heart regular rate and rhythm rate about 90 no murmur. Chest wall ribs nontender. Abdomen soft nontender. Moving all 4 extremities. Calves are nontender without edema or cords. Neurologically patient is awake and alert. No focal motor deficits. Const Vital Signs: 10/14/23 11:16 10/14/23 11:17 10/14/23 12:17 Temperature 97.5 F L 97.5 F L 97.9 F Temperature Source Temporal Temporal Oral Pulse Rate 87 87 88 Respiratory Rate 16 16 16 Blood Pressure 142/96 H 142/96 H 134/71 H Blood Pressure Mean 111 111 92 Pulse Ox 98 98 98 Oxygen Delivery Method Room Air Room Air Room Air 10/14/23 13:15 Temperature Temperature Source Pulse Rate 82 Respiratory Rate 18 Blood Pressure 128/89 H Blood Pressure Mean 102 Pulse Ox 99 Oxygen Delivery Method Room Air Positive well nourished, well developed, alert, oriented x3, no apparent distress, average body habitus, no limitations and healthy appearing; Negative for cachectic, contractures or unkempt General Appearance ED: well developed; Negative for unkempt, cachectic or contractures Nutritional Appearance: Negative for cachectic HEENT Reports normocephalic and head/scalp atraumatic normocephalic Face and Sinus: normal facial exam Nose: external nose normal Mouth ED: Yes oral and palatal mucosa normal Mouth: oral and palatal mucosa normal 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 Normal [facility] Urinalysis, Completeon 10-13 EPI,SQUAMOUS 0-5 SEEN Normal 5-10 [facility] Comment on above: Order Comment: RASHEED CTOR TO SPECIFY Performed By: #### L 400.0001 #### [facility] [address] [place], [address] WBC 0-5 SEEN Normal 0-5 [facility] Comment on above: Order Comment: RASHEED CTOR TO SPECIFY Performed By: #### L 400.0001 #### [facility] [address] [place], [address] BACTERIA 0 SEEN Normal None Seen [facility] Comment on above: Order Comment: RASHEED CTOR TO SPECIFY Performed By: #### L 400.0001 #### [facility] [address] [place], [address] Mucus Ql (Urine sed) 0 SEEN Normal [facility] Comment on above: Order Comment: RASHEED CTOR TO SPECIFY Performed By: #### L 400.0001 #### [facility] [address] [place], [address] RBC 0 SEEN Normal 0-5 [facility] Comment on above: Order Comment: RASHEED CTOR TO SPECIFY Performed By: #### L 400.0001 #### [facility] [address] [place], [address] Absolute lymphocyte countOrd ered By: Dr. Levy on 03-21-2022 Lymphocytes Auto (Unsp spec) [#/Vol] 3.97 10*3/uL 0.83-4.51 [facility] Basophil percentageOrdered B y: Dr. Levy on 03-21-2022 Basophils/100 WBC (Bld) 0.5 % 0-1 [facility] Chloride [Moles/Vol] 102 mmol/L 98-107 [facility] Eosinophils/100 WBC (Bld) 1.0 % 0-5 [facility] Glucose [Mass/Vol] 294 mg/dL 74-106 [facility] Comment on above: Glucose result great er than or equal to 200 mg/dLsuggests DIABETES MELLITUS per A.D.A. criteria. Neutrophils (Bld) [#/Vol] 9.4 10*3/uL 2.0-7.7 [facility] Neutrophils/100 WBC (Bld) 64.6 % 47-70 [facility] Potassium [Moles/Vol] 3.8 mmol/L 3.5-5.1 [facility] Sodium [Moles/Vol] 137 mmol/L 136-145 [facility] WBC (Bld) [#/Vol] 14.5 10*3/uL 4.4-11.0 [facility] Blood erythrocytes count (nu mber/volume)Ordered By: Dr. Levy on 03-21-2022 RBC (Bld) [#/Vol] 5.69 10*6/uL 4.2-5.4 [facility] Blood hemoglobin measurement (mass/volume)Ordered By: Dr. Levy on 03-21-2022 Hemoglobin (Bld) [Mass/Vol] 13.8 g/dL 12.0-15.0 [facility] Blood lymphocytes/100 leukoc ytesOrdered By: Dr. Levy on 03-21-2022 Lymphocytes/100 WBC (Bld) 27.4 % 19-41 [facility] Blood monocytes/100 leukocyt esOrdered By: Dr. Levy on 03-21-2022 Monocytes/100 WBC (Bld) 6.1 % 0-10 [facility] Blood platelet mean volumeOr dered By: Dr. Levy on 03-21-2022 Platelet mean volume (Bld) [Entitic vol] 10.8 fL 6.2-12.0 [facility] Determination of erythrocyte mean corpuscular volume (MCV)Ordered By: Dr. Levy on 03-21-2022 MCV (RBC) [Entitic vol] 78.2 fL 81-99 [facility] Hematocrit Auto (Bld) [Volum e fraction]Ordered By: Dr. Levy on 03-21-2022 Hematocrit (Bld) [Volume fraction] 44.5 % 37-47 [facility] - Chemistry and C hemistry - challengeOrdered By: Dr. Levy on 03-21-2022 CO2 [Moles/Vol] 25.0 mmol/L 21.0-32.0 [facility] Urea nitrogen/Creatinine [Mass ratio] 13.5 mg/mg 10-20 [facility] - Hematology and Cell countsOrdered By: Dr. Levy on 03-21-2022 Erythrocyte distribution width (RBC) [Entitic vol] 42.0 fL 35.1-43.9 [facility] Erythrocyte distribution width (RBC) [Ratio] 14.9 % 11.6-14.6 [facility] Immature granulocytes/100 WBC (Bld) 0.400 % 0.0-0.9 [facility] Comment on above: IG% - Immature Granu locytes (promyelocytes, myelocytes and metamyelocytes) > 1% indicates that a LEFT SHIFT is Present. MCH (RBC) [Entitic mass] 24.3 pg 27.0-32.0 [facility] Nucleated RBC/100 WBC (Bld) [Ratio] 0 % 0-5 [facility] MCHC Auto (RBC) [Mass/Vol]Or dered By: Dr. Levy on 03-21-2022 MCHC (RBC) [Mass/Vol] 31.0 g/dL 32-36 [facility] No Panel InformationOrdered By: Dr. Levy on 03-21-2022 Estimated Creatinine Clearance Calc 35.22 ml/min [facility] Estimated GFR (MDRD) Amer 50 mL/min >60 [facility] Comment on above: GFR Calc Estimated GFR (MDRD) Non-Af Amer 42 mL/min >60 [facility] Comment on above: Non- GFR Calc Troponin I High Sensitivity 10 pg/mL 3.0-54.0 [facility] Comment on above: Please Note: New Roseline t Units and Gender Specific Reference Ranges. For more information see Policy Stat Procedure [place] High Sensitivity Troponin (TNIH) and attachments. Platelets bldOrdered By: Dr. Levy on 03-21-2022 Platelets (Bld) [#/Vol] 338 10*3/uL 150-450 [facility] Serum or plasma calcium shiva urement (mass/volume)Ordered By: Dr. Levy on 03-21-2022 Calcium [Mass/Vol] 8.9 mg/dL 8.5-10.1 [facility] Serum or plasma creatinine m easurement (mass/volume)Ordered By: Dr. Levy on 03-21-2022 Creatinine [Mass/Vol] 1.41 mg/dL 0.55-1.02 [facility] Comment on above: The validity of the calculated GFR & GFRAA in patients over 70 years has not been determined. Clinical correlation is essential. Serum or plasma urea nitroge n measurement (mass/volume)Ordered By: Dr. Levy on 03-21-2022 Urea nitrogen [Mass/Vol] 19 mg/dL 7-18 [facility] Thin prep Papanicolaou smear with manual screeningOrdered By: Dr. Levy on 03-21-2022 Thin prep Papanicolaou smear with manual screening 10 5-15 [facility] CNPNon 06-05-[address] [facility] ISAAC RED ([id number]) 1970 F Date Time Provider Department 06/05/21 [facility] During your visit today, we recorded the following information about you: Antoni Grimes MD 06/05/2021 7:14 AM Signed COVID test was positive. Stay home for 5 days from symptom onset. If you have no symptoms or your symptoms are resolving after 5 days, you can leave your house. Continue to wear a mask around others for 5 additional days. If you have a fever, continue to stay home until your fever resolves. Close contacts should quarantine. Treat with supportive care. F/u with worsening symptoms; ER if severe. Perla Kennedy LPN 06/05/2021 8:23 AM Signed Phone call placed patient advised (se prior provider encounter) Patient verbalized understanding, agreed with plan of care. Perla Kennedy LPN Allergies As of Date: 06/05/2021 (No Known Allergies) Date Reviewed: 06/04/2021 Reviewed by: Perla Kennedy LPN - Fully Assessed Reason for Visit: Results [95] Cmt: COVID+ Prescriptions as of 06/05/2021 - predniSONE (DELTASONE) 10 mg tablet Take 6 tabs for 3 days, then 4 tabs for 3 days, then 2 tabs for 3 days then 1 tab for 3 days with food. - albuterol HFA (VENTOLIN HFA) 90 mcg/actuation inhaler Inhale 2 Puffs as instructed every 4 hours as needed for wheezing/shortness of breath. - phenazopyridine (PYRIDIUM) 200 mg tablet Take 1 tablet by mouth three times daily as needed. - metoprolol tartrate, short acting, (LOPRESSOR) 50 mg tablet Take 50 mg by mouth twice daily. - aspirin, enteric coated (ASPIRIN, ENTERIC COATED) 81 mg EC tablet Take 81 mg by mouth once daily. - ferrous sulfate 325 mg (65 mg iron) tablet Take 325 mg by mouth twice daily. Meds Comments as of 01/25/2018: Pt takes one tab q hs of a med for pre ca cervix- states is a hormone. She will phone this information to us today Problem List As Of Date 06/05/2021 Noted Resolved SVT (supraventricular tachycardia) (HCC) [I47.1] Chest pain [R07.9] Congenital heart anomaly [Q24.9] Anomalous origin of right coronary artery [Q24.* Encounter Status:Closed by PERLA KENNEDY LPN on 06/05/21 [facility] Liza 06-04-2021 CNOV Office Visit (UCWSTR ) ISAAC RED ([id number]) 1970 F Date Time Provider Department 06/04/21 11:45 AM LOIDA RENDON During your visit today, we recorded the following information about you: Temperature Pulse Respiration Blood pressure 97.6 degrees 95/minute 18/minute 120/78 Weight 72.5 kg Loida Rendon APRN.CNP 06/04/2021 3:46 PM Signed This note was created using [employer]. Subjective Isaac Red is a 50 year old female who presents with cough, fatigue, Decrease in appetite,chest wall pain from coughing and states upper back pain from coughing , and congestion x 4 days. Her COVID test through her place of employment on Tuesday was negative. She is a smoker with a history of SVT- she denies any current palpitations or cardiac symptoms. Denies CP. Denies N/V/D. 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 MEDICATIONS predniSONE (DELTASONE) 10 mg tablet Take 6 tabs for 3 days, then 4 tabs for 3 days, then 2 tabs for 3 days then 1 tab for 3 days with food. albuterol HFA (VENTOLIN HFA) 90 mcg/actuation inhaler Inhale 2 Puffs as instructed every 4 hours as needed for wheezing/shortness of breath. phenazopyridine (PYRIDIUM) 200 mg tablet Take 1 tablet by mouth three times daily as needed. metoprolol tartrate, short acting, (LOPRESSOR) 50 mg tablet Take 50 mg by mouth twice daily. aspirin, enteric coated (ASPIRIN, ENTERIC COATED) 81 mg EC tablet Take 81 mg by mouth once daily. ferrous sulfate 325 mg (65 mg iron) tablet Take 325 mg by mouth twice daily. FAMILY HISTORY Problem Relation Age of Onset - Heart Attack Mother age 61; has coronary stent - Heart Mother - Diabetes Mother - Heart Attack Father - Coronary Artery Disease Father CABG - Heart disease Father - Diabetes Father - Colon Cancer Sister - Kidney Disease Brother on dialysis - No Known Problems Sister - No Known Problems Sister Social History Tobacco Use - Smoking status: Current Some Day Smoker - Smokeless tobacco: Never Used Substance Use Topics - Alcohol use: No - Drug use: No Review of Systems Constitutional: Positive for activity change, appetite change, diaphoresis and fatigue. Negative for chills and fever. HENT: Positive for congestion, sinus pressure, sinus pain and voice change. Negative for ear discharge, ear pain, sore throat and trouble swallowing. Eyes: Negative. Respiratory: Positive for cough, chest tightness and shortness of breath. Negative for choking. Cardiovascular: Positive for chest pain. Negative for palpitations. Gastrointestinal: Negative for diarrhea, nausea and vomiting. Genitourinary: Negative. Musculoskeletal: Negative for arthralgias and myalgias. Skin: Negative for color change. Neurological: Positive for headaches. Psychiatric/Behaviora l: Negative for confusion. Objective BP 120/78 Pulse 95 Temp 36.4 ?C (97.6 ?F) Resp 18 Wt 72.5 kg (159 lb 12.8 oz) SpO2 98% BMI 30.19 kg/m? Physical Exam Vitals reviewed. Constitutional: General: She is not in acute distress. Appearance: Normal appearance. HENT: Head: Normocephalic and atraumatic. Right Ear: External ear normal. Left Ear: External ear normal. Nose: Congestion present. Mouth/Throat: Mouth: Mucous membranes are moist. Pharynx: Oropharynx is clear. Eyes: Extraocular Movements: Extraocular movements intact. Conjunctiva/sclera: Conjunctivae normal. Cardiovascular: Rate and Rhythm: Normal rate and regular rhythm. Heart sounds: Normal heart sounds. Pulmonary: Effort: Pulmonary effort is normal. No respiratory distress. Breath sounds: No stridor. Rhonchi present. No wheezing. Chest: Chest wall: No tenderness. Muscul (more content not included)... Normal [facility] XR CHEST 2V FRONTAL/LATon XR CHEST 2V FRONTAL/LAT * * *Final Repor t* * * DATE OF EXAM: Jun 04 2021 12:30PM WOX [id number] - XR CHEST 2V FRONTAL/LAT / PROCEDURE REASON: Cough * * * * Physician Interpretation * * * * EXAMINATION: CHEST RADIOGRAPH (2 VIEW FRONTAL and LATERAL) CLINICAL HISTORY: Cough MQ: XC2_6 EXAM DATE/TIME: 06/04/2021 12:30 PM COMPARISON: CT scans of 12/23/17 RESULT: Lines, tubes, and devices: None. Lungs and pleura: No consolidation. No lung mass. No pleural effusion. No pneumothorax. Calcified granuloma within the right lung Cardiomediastinal silhouette: Normal cardiomediastinal silhouette. Bones and soft tissues: Unremarkable. IMPRESSION: No acute radiographic abnormality. Printed Circuit Boards Inspector: ARABELLA Transcribe Date/Time: Jun 04 2021 12:38P Dictated by : ADORE GARCIA MD This examination was interpreted and the report reviewed and electronically signed by: ADORE GARCIA MD on Jun 04 2021 12:41PM EST [id number] Normal [facility] XR Chest PA and Lateralon IMPRESSION: No acute radiographic abnormality. Printed Circuit Boards Inspector: PSC Transcribe Date/Time: Jun 04 2021 12:38P Dictated by : ADORE GARCIA MD This examination was interpreted and the report reviewed and electronically signed by: ADORE GARCIA MD on Jun 04 2021 12:41PM EST [email or web address] E_DIVISION OF RADIOLOGY * * *Final Report* * * DATE OF EXAM: Jun 04 2021 12:30PM WOX [id number] - XR CHEST 2V FRONTAL/LAT / PROCEDURE REASON: Cough * * * * Physician Interpretation * * * * EXAMINATION: CHEST RADIOGRAPH (2 VIEW FRONTAL & LATERAL) CLINICAL HISTORY: Cough MQ: XC2_6 EXAM DATE/TIME: 06/04/2021 12:30 PM COMPARISON: CT scans of 12/23/17 RESULT: Lines, tubes, and devices: None. Lungs and pleura: No consolidation. No lung mass. No pleural effusion. No pneumothorax. Calcified granuloma within the right lung Cardiomediastinal silhouette: Normal cardiomediastinal silhouette. Bones and soft tissues: Unremarkable. [email or web address] E_DIVISION OF RADIOLOGY Provider, [facility] - 06/04/2021 * * *Final Report* * * DATE OF EXAM: Jun 04 2021 12:30PM WOX [id number] - XR CHEST 2V FRONTAL/LAT / PROCEDURE REASON: Cough * * * * Physician Interpretation * * * * EXAMINATION: CHEST RADIOGRAPH (2 VIEW FRONTAL & LATERAL) CLINICAL HISTORY: Cough MQ: XC2_6 EXAM DATE/TIME: 06/04/2021 12:30 PM COMPARISON: CT scans of 12/23/17 RESULT: Lines, tubes, and devices: None. Lungs and pleura: No consolidation. No lung mass. No pleural effusion. No pneumothorax. Calcified granuloma within the right lung Cardiomediastinal silhouette: Normal cardiomediastinal silhouette. Bones and soft tissues: Unremarkable. IMPRESSION IMPRESSION: No acute radiographic abnormality. Printed Circuit Boards Inspector: ARABELLA Transcribe Date/Time: Jun 04 2021 12:38P Dictated by : ADORE GARCIA MD This examination was interpreted and the report reviewed and electronically signed by: ADORE GARCIA MD on Jun 04 2021 12:41PM [facility] Radiology Study observation (narrative) Opal Garcia XR Chest PA and LateralOrder ed By: Cc Provider on 06-04-2021 [facility] Sameera 02-17-2021 SHIRAN Telephone ([facility]WSTR) ISAAC RED ([id number]) 1970 F Date Time Provider Department 02/17/21 [facility] During your visit today, we recorded the following information about you: Elma Montero APRN.CNP 02/17/2021 1:23 PM Signed Please inform patient that urine culture did not show any growth of bacteria requiring treatment. If symptoms improving complete antibiotic Advise due to blood in the urine that she follow up with PCP for recheck of urine in 1-2 weeks. Romina Gross 02/17/2021 6:57 PM Signed Patient given results and verbalized understanding of instructions given. Romina Gross Allergies As of Date: 02/17/2021 (No Known Allergies) Date Reviewed: 02/15/2021 Reviewed by: Kaya Juarez Ma - Fully Assessed Reason for Visit: Results [95] Cmt: urine culture Prescriptions as of 02/17/2021 - phenazopyridine (PYRIDIUM) 200 mg tablet Take 1 tablet by mouth three times daily as needed for pain for up to 2 days. - nitrofurantoin monohydrate and macrocrystal (MACROBID) 100 mg capsule Take 1 capsule by mouth twice daily for 7 days. - phenazopyridine (PYRIDIUM) 200 mg tablet Take 1 tablet by mouth three times daily as needed. - metoprolol tartrate, short acting, (LOPRESSOR) 50 mg tablet Take 50 mg by mouth twice daily. - aspirin, enteric coated (ASPIRIN, ENTERIC COATED) 81 mg EC tablet Take 81 mg by mouth once daily. - ferrous sulfate 325 mg (65 mg iron) tablet Take 325 mg by mouth twice daily. Meds Comments as of 01/25/2018: Pt takes one tab q hs of a med for pre ca cervix- states is a hormone. She will phone this information to us today Problem List As Of Date 02/17/2021 Noted Resolved SVT (supraventricular tachycardia) (HCC) [I47.1] Chest pain [R07.9] Congenital heart anomaly [Q24.9] Anomalous origin of right coronary artery [Q24.* Encounter Status:Closed by ROMINA GROSS on 02/17/21 [facility] CNOVon 02-15-2021 CNOV Office Visit (UCWSTR ) ISAAC RED ([id number]) 1970 F Date Time Provider Department 02/15/21 11:30 AM DONY EDWARDS [facility]WSTR During your visit today, we recorded the following information about you: Temperature Pulse Respiration Blood pressure 97.6 degrees 97/minute 16/minute 122/82 Weight 71.3 kg Dony Edwards PA-C 02/15/2021 1:11 PM Signed Subjective HPI HPI Isaac Red is a 50 year old female who presents today for CC of suspected UTI. Blood in urine since this AM. Notes that she's in intense pain, that it radiates from where she pees all the way up to her fingertips. Tends to get these at least once/year. BP 122/82 Pulse 97 Temp 36.4 ?C (97.6 ?F) (Left Tympanic) Resp 16 Wt 71.3 kg (157 lb 3.2 oz) SpO2 98% BMI 29.70 kg/m? ALLERGIES No Known Allergies ACTIVE PROBLEM LIST Svt (Supraventricular Tachycardia) (Hcc) Chest Pain Congenital Heart Anomaly Anomalous Origin of Right Coronary Artery Family History Problem Relation Age of Onset - Heart Attack Mother age 61; has coronary stent - Heart Mother - Diabetes Mother - Heart Attack Father - Coronary Artery Disease Father CABG - Heart disease Father - Diabetes Father - Colon Cancer Sister - Kidney Disease Brother on dialysis - No Known Problems Sister - No Known Problems Sister Social History Tobacco Use - Smoking status: Current Some Day Smoker - Smokeless tobacco: Never Used Substance Use Topics - Alcohol use: No - Drug use: No Review of Systems Constitutional: Positive for chills. Negative for fever and malaise/fatigue. Gastrointestinal: Negative for abdominal pain, constipation, diarrhea, nausea and vomiting. Genitourinary: Positive for dysuria and hematuria. Negative for flank pain, frequency and urgency. Objective BP 122/82 Pulse 97 Temp 36.4 ?C (97.6 ?F) (Left Tympanic) Resp 16 Wt 71.3 kg (157 lb 3.2 oz) SpO2 98% BMI 29.70 kg/m? Physical Exam Constitutional: Appearance: Normal appearance. Cardiovascular: Rate and Rhythm: Normal rate and regular rhythm. Heart sounds: S1 normal and S2 normal. No murmur heard. Pulmonary: Effort: Pulmonary effort is normal. Breath sounds: Normal breath sounds. No decreased breath sounds, wheezing, rhonchi or rales. Abdominal: General: Bowel sounds are normal. Palpations: Abdomen is soft. There is no hepatomegaly or splenomegaly. Tenderness: There is no abdominal tenderness. Skin: General: Skin is warm and dry. Findings: No rash. Neurological: Mental Status: She is alert and oriented to person, place, and time. ASSESSMENT/PLAN: 1. Acute cystitis with hematuria - ICD9: 595.0, ICD10: N30.01 (primary diagnosis) UA findings suggestive of UTI, so will go ahead and empirically treat w/ Macrobid. Recommend plenty of fluids and rest. Will send out for culture and adjust treatment if necessary pending results - UA DIP, URINE (POC) - URINE CULTURE - PHENAZOPYRIDINE 200 MG TABLET - NITROFURANTOIN MONOHYDRATE AND MACROCRYSTAL 100 MG ORAL CAP 2. Dysuria - ICD9: 788.1, ICD10: R30.0 acute - UA positive for ananda esterase, hematuria and proteinuria - UA DIP, URINE (POC) - URINE CULTURE - PHENAZOPYRIDINE 200 MG TABLET Pt advised to see PCP if symptoms persist or progress. Reviewed red flags with patient and when to seek care sooner. The patient indicates understanding of these issues and agrees with the plan. JANINE Orosco PA-C 02/15/2021 12:23 PM Signed Patient Education for Female Urinary Tract Infections Possible complications: Pyelonephritis Renal abscess Expected course/prognosis: * symptoms resolve within 2-3 days after starting treatment in almost all patients * one-fourth of women with simple UTI experience a second UTI within 6 months, and half at some time during lifetime. * patients with multiple recurrent UTI and no underlying urinary tract abnormality may receive long-term prophylactic antibioitic treatment. Trimethoprim-sulfamet hoxazole and nitrofurantoin common used. * women with frequent or intercourse-related UTI should empty bladder immediately before and following intercourse and consider postcoital antibiotic treament Instructions: * Maintain good hydration * Avoid sexual intercourse when symptoms present *Take antibiotic as directed * Return if symptoms not resolved or markedly improved within 48 hours * Return if fever, chills, or flank pain develop * If taking prophylactic antiobiotics, take at bedtime * Take showers instead of tub baths * Avoid feminine hygiene sprays and scented douches * Wipe urethra from front to back Referring Provider: SELF [200] Allergies As of Date: 02/15/2021 (No Known Allergies) Date Reviewed: 02/15/2021 Reviewed by: Kaya Juarez Ma - Fully Assessed Reason for Visit: UTI [116] Primary Visit Diagnosis: (more content not included)... Normal [facility] Urine Cultureon 02-15-2021 Bacteria identified Cx Nom (U) Sp. Request/Comment: - Specimen received in preservative Culture Result - 10,000 - <50,000 CFU/ml mixed microbiota Insignificant colony count. No further workup. Normal [facility] Comment on above: Performed By: #### U RCUL #### [facility] [address] [facility] [address] [place] [address] Sameera 03-28-2018 SHIRAN Telephone (VIDHI) ISAAC RED ([id number]) 1970 F Date Time Provider Department 03/28/18 MAIKEL STROUD During your visit today, we recorded the following information about you: Cameron Do 03/28/2018 2:15 PM Signed Spoke with Dr. Aguilar's office nurse [phone]. They will schedule Ms. Red for stress test, forward results to our office. Cameron Do 03/30/2018 3:27 PM Signed Stress schedule for 04/14/[address] [facility] [address] Aguilar's office. Copy of results will sent to our office. Allergies As of Date: 03/28/2018 (No Known Allergies) Date Reviewed: 01/25/2018 Reviewed by: Jessie Strickland - Fully Assessed Reason for Visit: FYI-No Action Needed [265] Prescriptions as of 03/28/2018 Sig: METOPROLOL TARTRATE 50 MG TAB* Take 50 mg by mouth twice yessica* ASPIRIN 81 MG TABLET,DELAYED * Take 81 mg by mouth once odilon* FERROUS SULFATE 325 MG (65 MG* Take 325 mg by mouth twice da* Problem List As Of Date 03/28/2018 Noted Resolved SVT (supraventricular tachycardia) (HCC) [I47.1] Chest pain [R07.9] Congenital heart anomaly [Q24.9] More... Anomalous origin of right coronary artery [Q24.* Encounter Status:Closed by CAMERON DO on 03/29/18 [facility] CNOVon 01-25-2018 CNOV Office Visit (AGVASACC) ISAAC RED ([id number]) 1970 F Date Time Provider Department 01/25/18 2:00 PM MAIKEL STROUD AGVASACC During your visit today, we recorded the following information about you: Pulse Respiration Blood pressure Weight 82/minute 16/minute 138/74 72.1 kg Height 1.549 m Jessie Strickland LPN 01/25/2018 1:59 PM Signed CARDIAC REHAB 5 METER WALK TEST SERVICE DATE: 01/25/2018 SERVICE TIME: 1356 ASSESSMENT: SIGNATURE: Jessie Strickland LPN PATIENT NAME: Isaac Red DATE: January 25, 2018 TIME: 1:56 PM PAGER/CONTACT #: [id number] 1. 3.66 sec 2. 3.73 sec 3. 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 Please call us if you have any concerns/questions: [phone] LU Frey MD 01/25/2018 2:37 PM Signed Ms. 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 Ms. Red was diagnosed with supraventricular tachycardia (SVT) at the end of October 2017. She was experiencing episodes of lightheadedness and dizziness, associated with chest pressure and indigestion. She did not experience syncope or palpitations or shortness of breath. She presented to the [facility] ER and was found to be in tachycardia with heart rates in excess of 200 bpm. This was determined to be SVT and the episode terminated after she received intravenous medications including adenosine and also a beta leslie medication. During the SVT she had marked ST segment abnormalities, and in light of the chest pain and abnormal cardiac troponins concerning for NSTEMI possibly type 2 (supply-demand). She underwent echocardiogram that revealed normal left ventricular function and no valvular abnormalities. . She underwent cardiac catheterization which revealed no significant coronary artery disease and anomalous origin of the right coronary from above the left coronary sinus. She underwent cardiac CT angiogram on December 23, 2017 at [facility] for further definition of the coronary anatomy. Unfortunately this study was read as a calcium score; I do not have any anatomic interpretation. She was treated with an oral beta leslie medication . She was seen by Dr. 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 In the interim, she has regained a normal level of activity. 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 She denies any specific episodes of chest pressure, pain, burning, or dyspnea. She may have small intermittent twinges of chest discomfort and or dyspnea which are fairly nonspecific. She denies any further episodes of SVT, presyncope, six-week, edema etc. 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; doing well on oral beta-leslie therapy - Tachycardia see SVT - Tobacco abuse encouraged to quit smoking PAST SURGICAL HISTORY Procedure Laterality Date - CARDIAC CATH 11/21/2017 minimal luminal irregularities of LAD and CX; RCA not well visualized and might have anomalous origin; LVEF 65% [facility] - ECHOCARDIOGRAM 11/21/2017 normal LV systolic fxn; LVEF 60%; trivial MR, TR; normal diastolic fxn; no significant valvular abnormalities - TUBAL LIGATION HX 1994 Current Outpatient Prescriptions on File Prior to Visit: metoprolol tartrate, short acting, (LOPRESSOR) 50 mg tablet Take 50 mg by mouth twice daily. aspirin, enteric coated (ASPIRIN, ENTERIC COATED) 81 mg EC tablet Take 81 mg by mouth once daily. ferrous sulfate 325 mg (65 mg iron) tablet Take 325 mg by mouth twice daily. No current facility-administered medications on file prior to visit. I have reviewed Heart Catherization, CT of Chest and Office note of Dr. Chaitanya Santillan.. In summary,Isaac Red has been found on recent heart catheterization to have anomalous origin of the right coronary from just above the left coronary sinus. I have indicated to her that sometimes this needs treatment with surgery. Her symptoms occurred during an episode of nonischemic dilated SVT. She currently has no true exertional anginal symptoms. In addition the right coronary is relatively small with the predominance of circulation to her left ventricle coming from the left system. Overall, I reassured her that I do not think she will be coming to surgery for this problem. However, I would like to have her CT angiogram reviewed by our librarian specialist to determine if there are any high risk features (for example slitlike orifice of the right coronary, or intramural course of the right coronary through the aortic wall); I would like to have her studies reviewed by our catheterization conference. Overall I think that she should probably undergo stress testing to ensure there is no inducible ischemia. If there is not, then she should be treated with beta blockade. Further recommendations will follow. Maikel Stroud MD Referring Provider: CONY BARNETT [[id number]] Allergies As of Date: 01/25/2018 (No Known Allergies) Date Reviewed: 01/25/2018 Reviewed by: Jessie Strickland - Fully Assessed Reason for Visit: New Patient Evaluation [154] Cmt: coronary vessel malformation ref by [facility], cardiac cath, echo films have been scanned Primary Visit Diagnosis:Anomalous origin of right coronary artery [Q24.5] Other Visit Diagnosis:SVT (supraventricular tachycardia) (HCC) [I47.1] Prescriptions as of 01/25/2018 Sig: METOPROLOL TARTRATE 50 MG TAB* Take 50 mg by mouth twice yessica* ASPIRIN 81 MG TABLET,DELAYED * Take 81 mg by mouth once odilon* FERROUS SULFATE 325 MG (65 MG* Take 325 mg by mouth twice da* Problem List As Of Date 01/25/2018 Noted Resolved SVT (supraventricular tachycardia) (HCC) [I47.1] Chest pain [R07.9] Congenital heart anomaly [Q24.9] More... 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 Please call us if you have any concerns/questions: [phone] Christopher Christianson APRN.[facility] Visit Notes: >> Jessie Strickland Wed Jan 25, 2018 1:56 PM Status: Signed CARDIAC REHAB 5 METER WALK TEST SERVICE DATE: 01/25/2018 SERVICE TIME: 1356 ASSESSMENT: SIGNATURE: Jessie Strickland LPN PATIENT NAME: Isaac Red DATE: January 25, 2018 TIME: 1:56 PM PAGER/CONTACT #: [id number] 1. 3.66 sec 2. 3.73 sec 3. 3.73 sec Jessie Strickland LPN Level of Service: NEW PATIENT VISIT LEVEL 4 [12299] Letter Text Encounter Status:Closed by MAIKEL STROUD MD on 01/25/18 Normal [facility] HISTORY PHYSICALon 8 HISTORY PHYSICAL HNO ID: [id number] Author: Maikel Stroud Service: (none) Author Type: Physician Type: HANDP Filed: 01/25/2018 2:37 PM Note Text: Ms. 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 Ms. Red was diagnosed with supraventricular tachycardia (SVT) at the end of October 2017. She was experiencing episodes of lightheadedness and dizziness, associated with chest pressure and indigestion. She did not experience syncope or palpitations or shortness of breath. She presented to the [facility] ER and was found to be in tachycardia with heart rates in excess of 200 bpm. This was determined to be SVT and the episode terminated after she received intravenous medications including adenosine and also a beta leslie medication. During the SVT she had marked ST segment abnormalities, and in light of the chest pain and abnormal cardiac troponins concerning for NSTEMI possibly type 2 (supply-demand). She underwent echocardiogram that revealed normal left ventricular function and no valvular abnormalities. . She underwent cardiac catheterization which revealed no significant coronary artery disease and anomalous origin of the right coronary from above the left coronary sinus. She underwent cardiac CT angiogram on December 23, 2017 at [facility] for further definition of the coronary anatomy. Unfortunately this study was read as a calcium score; I do not have any anatomic interpretation. She was treated with an oral beta leslie medication . She was seen by Dr. 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 In the interim, she has regained a normal level of activity. 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 She denies any specific episodes of chest pressure, pain, burning, or dyspnea. She may have small intermittent twinges of chest discomfort and or dyspnea which are fairly nonspecific. She denies any further episodes of SVT, presyncope, six-week, edema etc. 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; doing well on oral beta-leslie therapy - Tachycardia see SVT - Tobacco abuse encouraged to quit smoking PAST SURGICAL HISTORY Procedure Laterality Date - CARDIAC CATH 11/21/2017 minimal luminal irregularities of LAD and CX; RCA not well visualized and might have anomalous origin; LVEF 65% [facility] - ECHOCARDIOGRAM 11/21/2017 normal LV systolic fxn; LVEF 60%; trivial MR, TR; normal diastolic fxn; no significant valvular abnormalities - TUBAL LIGATION HX 1994 Current Outpatient Prescriptions on File Prior to Visit: metoprolol tartrate, short acting, (LOPRESSOR) 50 mg tablet Take 50 mg by mouth twice daily. aspirin, enteric coated (ASPIRIN, ENTERIC COATED) 81 mg EC tablet Take 81 mg by mouth once daily. ferrous sulfate 325 mg (65 mg iron) tablet Take 325 mg by mouth twice daily. No current facility-administered medications on file prior to visit. I have reviewed Heart Catherization, CT of Chest and Office note of Dr. Chaitanya Santillan.. In summary,Isaac Red has been found on recent heart catheterization to have anomalous origin of the right coronary from just above the left coronary sinus. I have indicated to her that sometimes this needs treatment with surgery. Her symptoms occurred during an episode of nonischemic dilated SVT. She currently has no true exertional anginal symptoms. In addition the right coronary is relatively small with the predominance of circulation to her left ventricle coming from the left system. Overall, I reassured her that I do not think she will be coming to surgery for this problem. However, I would like to have her CT angiogram reviewed by our librarian specialist to determine if there are any high risk features (for example slitlike orifice of the right coronary, or intramural course of the right coronary through the aortic wall); I would like to have her studies reviewed by our catheterization conference. Overall I think that she should probably undergo stress testing to ensure there is no inducible ischemia. If there is not, then she should be treated with beta blockade. Further recommendations will follow. Maikel Stroud MD [facility] CNOVon 12-21-2017 CNOV Office Visit (AGCARDPHRA) ISAAC RED ([id number]) 1970 F Date Time Provider Department 12/21/17 3:30 PM DANI WILLIS During your visit today, we recorded the following information about you: Pulse Respiration Blood pressure Weight 92/minute 16/minute 120/80 70.7 kg Height 1.549 m Natalie Albert CMA 12/21/2017 3:57 PM Signed Patient denies any cardiac complaints today. CAMERON Givens MD 12/21/2017 6:27 PM Signed PRIMARY CARE PHYSICIAN: Cony Barnett CNP ([facility]) [address] [place] [address] REFERRING PHYSICIAN: Rocky Aguilar MD ([facility]) [address] [address] Patient Care Team: Cony Barnett as PCP - General (Family Practice) Rocky Aguilar as Specialty Fiberglass Ski Maker (Cardiology) CHIEF COMPLAINT: Evaluation for arrhythmia HISTORY OF PRESENT ILLNESS: Ms. Red is a 47 year old female who presents today with her daughter for evaluation of arrhythmia. Ms. Red was diagnosed with supraventricular tachycardia (SVT) at the end of October 2017. She was experiencing episodes of lightheadedness and dizziness, associated with chest pressure and indigestion. She did not experience syncope or palpitations or shortness of breath. She presented to the [facility] ER and was found to be in tachycardia with heart rates in excess of 200 bpm. This was determined to be SVT and the episode terminated after she received intravenous medications including adenosine and also a beta leslie medication. During the SVT she had marked ST segment abnormalities, and in light of the chest pain and abnormal cardiac troponins concerning for NSTEMI possibly type 2 (supply-demand), she underwent cardiac testing. This testing included an echocardiogram that revealed . She underwent cardiac catheterization which revealed no significant coronary artery disease although the origin of the right coronary artery was not found at the typical location and was suspected to be an anomalous origin. She is scheduled for cardiac CT angiogram on December 23, 2017 at [facility]. She was treated with an oral beta leslie medication and in the past month while being treated with this medication she has experienced minimal symptoms, perhaps a few episodes of brief slightly dizzy spells that lasted only a couple minutes. She states she has precancerous tissue on the cervix and needs to undergo a surgical procedure in that regard. She denies chest pain, shortness of breath, orthopnea, PND, lightheadedness or syncope. 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; doing well on oral beta-leslie therapy - Tachycardia see SVT - Tobacco abuse encouraged to quit smoking PAST SURGICAL HISTORY Procedure Laterality Date - CARDIAC CATH 11/21/2017 minimal luminal irregularities of LAD and CX; RCA not well visualized and might have anomalous origin; LVEF 65% [facility] - ECHOCARDIOGRAM 11/21/2017 normal LV systolic fxn; LVEF 60%; trivial MR, TR; normal diastolic fxn; no significant valvular abnormalities - TUBAL LIGATION HX 1994 SOCIAL HISTORY Social History Substance Use Topics - Smoking status: Current Some Day Smoker - Smokeless tobacco: Never Used - Alcohol use No FAMILY HISTORY Problem Relation Age of Onset - Heart Attack Mother age 61; has coronary stent - Heart Mother - Diabetes Mother - Heart Attack Father - Coronary Artery Disease Father CABG - Heart disease Father - Diabetes Father - Colon Cancer Sister - Kidney Disease Brother on dialysis - No Known Problems Sister - No Known Problems Sister ALLERGIES: ALLERGIES No Known Allergies MEDICATIONS: metoprolol tartrate, short acting, (LOPRESSOR) 50 mg tablet Take 50 mg by mouth twice daily. aspirin, enteric coated (ASPIRIN, ENTERIC COATED) 81 mg EC tablet Take 81 mg by mouth once daily. ferrous sulfate 325 mg (65 mg iron) tablet Take 325 mg by mouth twice daily. REVIEW OF SYSTEMS: GENERAL: Negative for: Weight loss or gain, Fever or Chills, Weakness and Sleep difficulties. HEENT: Positive for:Impaired Vision , Negative for:Hearing Impairment, Nosebleeds and Bleeding Gums NECK: Negative for: Swelling, Pain, Stiffness RESPIRATORY: Negative for: Cough, Blood in Sputum, Shortness of breath, Wheezing, Apnea GASTROINTESTINAL: Negative for: Trouble swallowing, Heartburn, Change in bowel habits, Blood in stool, Dark black stools MUSCULOSKELETAL: Negative for: Muscle or joint pain NEUROLOGIC/PSYCHIATRI C: Negative for: Weakness, Paralysis, Numbness, Tingling, Tremor, Nervousness or anxiety, Depressed mood, Memory loss SKIN: Negative for: Rash, Itching HEMATOLOGICAL/LYMPHAT IC: Negative for: Easy bruising, Easy bleeding ENDOCRINE: Negative for: Heat or Cold Intolerance, Excessive Sweating, Frequent Urination, Frequent Thirst PHYSICAL EXAMINATION: BP 120/80 Pulse 92 Resp 16 Ht 5' 1 (1.55m) Wt 155 lb 12.8 oz (70.7kg) SpO2 98% BMI 29.45 kg/(m2). General: Well appearing, in no acute distress, speaking in complete sentences. Skin: No clubbing, no cyanosis. Eyes: Extra ocular movements intact, Non-icteric sclerae Neck: no jugular venous distention, Lungs: Clear to auscultation bilaterally, no wheezing or rhonchi. Heart: Regular rhythm, S1, S2 normal, no rub , no murmur Extremities: No peripheral edema . Grade 2/4 distal pulses bilaterally. Neuro: Oriented to person, place and time, alert, cooperative, gait coordinated. CARDIOVASCULAR MEDICINE TESTING: Electrocardiogram: Sinus rhythm 87 bpm; normal conduction intervals (MA 118 ms, QRS 92 ms); no WPW pattern I have personally reviewed the Electrocardiogram. ASSESSMENT/PLAN: 1. 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 Other chest pain - ICD9: 786.59, ICD10: R07.89 episodes of chest pain or pressure seem to correlate with episodes of SVT 3. Congenital heart anomaly - ICD9: 746.9, ICD10: Q24.9 possibly has anomalous origin of right coronary artery by [facility] 11/2017; scheduled for CT angiogram 12/23/2017 4. Anomalous origin of right coronary artery - ICD9: 746.85, ICD10: Q24.5 IMPRESSION: Ms. Red was diagnosed with SVT about a month ago in late October or early November 2017. This was associated with severe symptoms including chest pressure and lightheadedness. The reported abrupt termination of the SVT with intravenous adenosine is highly suggestive of the type of SVT that is AV node dependent. Such types of SVT include AV node reentry tachycardia (AVNRT) and AV reciprocating tachycardia (AVRT) using a concealed accessory pathway. The EKG in sinus rhythm does not reveal evidence for ventricular preexcitation AKA delta wave to suggest the presence of a manifest accessory pathway. She could still have a concealed accessory pathway with only retrograde conduction from the ventricles to the atria, and such pathway could result in SVT (AVRT). 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 She is scheduled to undergo cardiac CT angiogram in the next couple of days at [facility] to evaluate for the possible anomalous origin of the right coronary artery. I had a detailed discussion with Ms. Red and her daughter regarding SVT and its management. I did reassure her that the SVT is considered benign and not at all likely to harm her, and is not considered to be a dangerous type of heart arrhythmia. He said that, SVT can be quite bothersome with very rapid heart rates that can cause excessively bothersome symptoms and less commonly severe lightheadedness near syncope or syncope that could secondarily result in injury. So there is definitely an indication to treat the SVT to prevent recurrence given the excessively bothersome symptoms. Beta adrenergic blocking medications and non-dihydropyridine calcium channel blocking medications represent the first line approach to the treatment of SVT. Another approach that is typically reserved for drug refractory SVT or frequently recurring SVT as an alternative drug therapy, would be catheter ablation. I discussed these treatment options with Ms. Red in detail. She is very pleased with the control of the arrhythmia that seems to be provided by the current treatment with the beta leslie metoprolol. She is not keen at this point undergo an invasive procedure, and was particularly not enthusiastic about the requirement to spend the night in the hospital even for an overnight observation. That aspect of catheter ablation seem to be the deal breaker for considering such a procedure at this time. I did inform her that catheter ablation for AV floyd dependent type of SVT is associated with a very high rate of cure of the arrhythmia without the need of ongoing medical therapy, at a very low risk of serious complications. We had a detailed discussion regarding the options and I did tell her that either approach at this point, medical therapy or catheter ablation are very acceptable treatment options. She prefers at this point to continue with the beta leslie treatment and consider the options if the SVT recurs. This is a very reasonable treatment approach at this time. Regarding the gynecological surgery that has been considered, it seems from an arrhythmia standpoint the SVT is under appropriate control with medical therapy. So from an EP standpoint she could safely undergo a surgical procedure without high or prohibitive risk of serious complications. Please note that general cardiac clearance for a surgical procedure would need to be obtained from her tractor trailer driver, Dr. Aguilar. It seems prudent to see what the cardiac CT angiogram shows when it is performed in a couple days, but I will leave general cardiac clearance to his discretion. PLAN AND RECOMMENDATIONS: Ms. Red would like to continue with medical therapy for the SVT at this time. Return if symptoms worsen or fail to improve. She will continue to follow-up with her local tractor trailer driver, Dr. Aguilar. She was told that she could always call our office with any questions or concerns regarding arrhythmia. I would be happy to see her back again at any point in the future if she has recurrent issues with arrhythmia. Dani Willis MD 12/21/2017 Dani Willis MD 12/21/2017 6:26 PM Signed Heart Rhythm Problem (Arrhythmia) What is arrhythmia? Arrhythmia is an abnormal rhythm of your heartbeat. Your heart may beat faster or more slowly than normal, or it may skip beats. This can make it harder for the heart to pump enough blood to your body. Another term for arrhythmia is dysrhythmia. What is the cause? An electrical signal in your heart starts each heartbeat, causing the heart muscle to squeeze (contract). Normally, this signal starts in the upper right chamber of the heart (the right atrium) at a place called the sinus node. The signal then follows normal pathways to the upper left atrium and to the lower chambers of the heart (the ventricles). You may have an abnormal heart rhythm if the electrical signals don?t follow the normal pathways or the nerve cells that make the electrical signals don?t work right. Common causes of heart rhythm problems are conditions that damage the heart, like coronary artery disease, heart attack, or heart failure. Problems with the heart valves are another common cause. The heart has 4 valves that open and close with each heartbeat to help blood flow in the right direction through the heart. Some other causes of heart rhythm problems include: -Health problems, such as a stroke, lung disease, diabetes, overactive thyroid gland, or high blood pressure -Abuse of alcohol or drugs, such as cocaine -Some medicines, such as cold medicines -Some natural remedies, such as ephedra, guarana, and licorice Exercise or emotional stress can make your heart beat faster or skip beats, but this is usually not a cause for concern. Sometimes no cause for arrhythmia can be found. What are the different types of arrhythmia? There are many different types of arrhythmia. The heart may beat very slowly (bradycardia) or very fast (tachycardia). The abnormal rhythm may start in either the upper or the lower heart chambers. The 2 main types of arrhythmia are: -Atrial arrhythmia: The electrical signals don?t start in the normal place in the right atrium and don?t travel normally. This can cause part or all of the heart to beat very fast and not in a normal pattern. This affects the ability of the heart to pump blood to the rest of the body. -Ventricular arrhythmia: The abnormal rhythm starts in the lower chambers of the heart. The heart beats in a rhythm that may be irregular or very fast. If severe and untreated, it can be life-threatening. What are the symptoms? Some arrhythmias do not cause any symptoms, or the symptoms may come and go. Your body may simply adjust to the change in rhythm over time. When you do have symptoms, they may include: -Feeling like your heart is beating too fast or too hard or skipping beats or fluttering -Feeling dizzy or lightheaded -Fainting -Feeling tired or weak -Chest pain -Shortness of breath How is it diagnosed? Your healthcare provider will ask about your symptoms and medical history and examine your heart and lungs. Tests may include: -An ECG (also called an EKG), which measures and records your heartbeat. You may have an ECG while you are resting or while you exercise on a treadmill. You may also be asked to wear a small portable ECG monitor for a few days or sometimes a couple weeks. -Blood tests -Chest X-ray -An echocardiogram, which uses sound waves (ultrasound) to show the structures of the heart and how well the heart muscle is pumping -An angiogram, which uses dye injected into a vein and X-rays to look for narrowing or blockages of blood vessels -An electrophysiology study (EPS), which uses tiny wires put into your heart through your veins to look at the electrical pathways in your heart How is it treated? The goal of treatment is to help the heart keep a normal rhythm. The right treatment for you depends on the cause of the arrhythmia, how often you have symptoms, and the severity of your symptoms. If you have no symptoms, or your symptoms are fairly mild, you may not need treatment. If a health problem like a leaky heart valve or heart failure is causing the arrhythmia, treating the health problem may also treat the arrhythmia. Other possible treatments are: -Medicine to control the heart rate -Surgery to: ?Make small cuts or scars in the heart that will block abnormal electrical pathways (cardiac ablation) ?Put an electronic device, such as a pacemaker, under the skin in your chest to help control the heartbeat ?Improve blood flow to the heart if you have coronary artery disease (bypass surgery) How can I take care of myself? Follow your healthcare provider's instructions. Ask your provider: -How and when you will hear your test results -How long it will take to recover -What activities you should avoid and when you can return to your normal activities -How to take care of yourself at home -What symptoms or problems you should watch for and what to do if you have them Make sure you know when you should come back for a checkup. How can I help prevent arrhythmia? The best prevention is to have a heart-healthy lifestyle: -Keep a healthy weight. -Eat a healthy diet. -Stay fit with the right kind of exercise for you. -Decrease stress. -Don?t smoke. -Limit your use of alcohol. Let your healthcare provider know if you have a family history of arrhythmia. If you have heart disease or high blood pressure, follow your healthcare provider's instructions for treatment. Developed by [employer]. Published by [employer]. Copyright ?2013 [employer] and/or one of its subsidiaries. All rights reserved. Referring Provider: ROCKY AGUILAR [[id number]] Allergies As of Date: 12/21/2017 (No Known Allergies) Date Reviewed: 12/21/2017 Reviewed by: Dani Willis - Fully Assessed Reason for Visit: New Patient [172] Visit Diagnoses:SVT (supraventricular tachycardia) ([facility]) [I47.1] Other chest pain [R07.89] Congenital heart anomaly [Q24.9] Anomalous origin of right coronary artery [Q24.5] Order(s):EKG WITH INTERPRETATION [58251YSO] Order #: [id number]: 1 Prescriptions as of 12/21/2017 Sig: METOPROLOL TARTRATE 50 MG TAB* Take 50 mg by mouth twice yessica* ASPIRIN 81 MG TABLET,DELAYED * Take 81 mg by mouth once odilon* FERROUS SULFATE 325 MG (65 MG* Take 325 mg by mouth twice da* Problem List As Of Date 12/21/2017 Noted Resolved SVT (supraventricular tachycardia) (HCC) [I47.1] Chest pain [R07.9] Congenital heart anomaly [Q24.9] More... Anomalous origin of right coronary artery [Q24.* Other instructions from your clinician: Heart Rhythm Problem (Arrhythmia) What is arrhythmia? Arrhythmia is an abnormal rhythm of your heartbeat. Your heart may beat faster or more slowly than normal, or it may skip beats. This can make it harder for the heart to pump enough blood to your body. Another term for arrhythmia is dysrhythmia. What is the cause? An electrical signal in your heart starts each heartbeat, causing the heart muscle to squeeze (contract). Normally, this signal starts in the upper right chamber of the heart (the right atrium) at a place called the sinus node. The signal then follows normal pathways to the upper left atrium and to the lower chambers of the heart (the ventricles). You may have an abnormal heart rhythm if the electrical signals don?t follow the normal pathways or the nerve cells that make the electrical signals don?t work right. Common causes of heart rhythm problems are conditions that damage the heart, like coronary artery disease, heart attack, or heart failure. Problems with the heart valves are another common cause. The heart has 4 valves that open and close with each heartbeat to help blood flow in the right direction through the heart. Some other causes of heart rhythm problems include: -Health problems, such as a stroke, lung disease, diabetes, overactive thyroid gland, or high blood pressure -Abuse of alcohol or drugs, such as cocaine -Some medicines, such as cold medicines -Some natural remedies, such as ephedra, guarana, and licorice Exercise or emotional stress can make your heart beat faster or skip beats, but this is usually not a cause for concern. Sometimes no cause for arrhythmia can be found. What are the different types of arrhythmia? There are many different types of arrhythmia. The heart may beat very slowly (bradycardia) or very fast (tachycardia). The abnormal rhythm may start in either the upper or the lower heart chambers. The 2 main types of arrhythmia are: -Atrial arrhythmia: The electrical signals don?t start in the normal place in the right atrium and don?t travel normally. This can cause part or all of the heart to beat very fast and not in a normal pattern. This affects the ability of the heart to pump blood to the rest of the body. -Ventricular arrhythmia: The abnormal rhythm starts in the lower chambers of the heart. The heart beats in a rhythm that may be irregular or very fast. If severe and untreated, it can be life-threatening. What are the symptoms? Some arrhythmias do not cause any symptoms, or the symptoms may come and go. Your body may simply adjust to the change in rhythm over time. When you do have symptoms, they may include: -Feeling like your heart is beating too fast or too hard or skipping beats or fluttering -Feeling dizzy or lightheaded -Fainting -Feeling tired or weak -Chest pain -Shortness of breath How is it diagnosed? Your healthcare provider will ask about your symptoms and medical history and examine your heart and lungs. Tests may include: -An ECG (also called an EKG), which measures and records your heartbeat. You may have an ECG while you are resting or while you exercise on a treadmill. You may also be asked to wear a small portable ECG monitor for a few days or sometimes a couple weeks. -Blood tests -Chest X-ray -An echocardiogram, which uses sound waves (ultrasound) to show the structures of the heart and how well the heart muscle is pumping -An angiogram, which uses dye injected into a vein and X-rays to look for narrowing or blockages of blood vessels -An electrophysiology study (EPS), which uses tiny wires put into your heart through your veins to look at the electrical pathways in your heart How is it treated? The goal of treatment is to help the heart keep a normal rhythm. The right treatment for you depends on the cause of the arrhythmia, how often you have symptoms, and the severity of your symptoms. If you have no symptoms, or your symptoms are fairly mild, you may not need treatment. If a health problem like a leaky heart valve or heart failure is causing the arrhythmia, treating the health problem may also treat the arrhythmia. Other possible treatments are: -Medicine to control the heart rate -Surgery to: ?Make small cuts or scars in the heart that will block abnormal electrical pathways (cardiac ablation) ?Put an electronic device, such as a pacemaker, under the skin in your chest to help control the heartbeat ?Improve blood flow to the heart if you have coronary artery disease (bypass surgery) How can I take care of myself? Follow your healthcare provider's instructions. Ask your provider: -How and when you will hear your test results -How long it will take to recover -What activities you should avoid and when you can return to your normal activities -How to take care of yourself at home -What symptoms or problems you should watch for and what to do if you have them Make sure you know when you should come back for a checkup. How can I help prevent arrhythmia? The best prevention is to have a heart-healthy lifestyle: -Keep a healthy weight. -Eat a healthy diet. -Stay fit with the right kind of exercise for you. -Decrease stress. -Don?t smoke. -Limit your use of alcohol. Let your healthcare provider know if you have a family history of arrhythmia. If you have heart disease or high blood pressure, follow your healthcare provider's instructions for treatment. Developed by [employer]. Published by [employer]. Copyright ?2014 [employer] and/or one of its subsidiaries. All rights reserved. Visit Notes: >> Natalie Albert Wed Dec 21, 2017 3:54 PM Status: Signed Patient denies any cardiac complaints today. Natalie Albert CMA Disposition: Return if symptoms worsen or fail to improve. Follow-up and Disposition History Recorded Letter Text Encounter Status:Closed by DANI WILLIS MD on 12/21/17 [facility] PROGRESSon 12-21-2017 Protein mass conc HNO ID: [id number] Author: Dani Willis Service: (none) Author Type: Physician Type: Progress Notes Filed: 12/21/2017 6:27 PM Note Text: PRIMARY CARE PHYSICIAN: Cony Barnett CNP ([facility]) [address] [place] [address] REFERRING PHYSICIAN: Rocky Aguilar MD ([facility]) [address] [address] Patient Care Team: Cony Barnett as PCP - General (Family Practice) Rocky Aguilar as Specialty Fiberglass Ski Maker (Cardiology) CHIEF COMPLAINT: Evaluation for arrhythmia HISTORY OF PRESENT ILLNESS: Ms. Red is a 47 year old female who presents today with her daughter for evaluation of arrhythmia. Ms. Red was diagnosed with supraventricular tachycardia (SVT) at the end of October 2017. She was experiencing episodes of lightheadedness and dizziness, associated with chest pressure and indigestion. She did not experience syncope or palpitations or shortness of breath. She presented to the [facility] ER and was found to be in tachycardia with heart rates in excess of 200 bpm. This was determined to be SVT and the episode terminated after she received intravenous medications including adenosine and also a beta leslie medication. During the SVT she had marked ST segment abnormalities, and in light of the chest pain and abnormal cardiac troponins concerning for NSTEMI possibly type 2 (supply-demand), she underwent cardiac testing. This testing included an echocardiogram that revealed . She underwent cardiac catheterization which revealed no significant coronary artery disease although the origin of the right coronary artery was not found at the typical location and was suspected to be an anomalous origin. She is scheduled for cardiac CT angiogram on December 23, 2017 at [facility]. She was treated with an oral beta leslie medication and in the past month while being treated with this medication she has experienced minimal symptoms, perhaps a few episodes of brief slightly dizzy spells that lasted only a couple minutes. She states she has precancerous tissue on the cervix and needs to undergo a surgical procedure in that regard. She denies chest pain, shortness of breath, orthopnea, PND, lightheadedness or syncope. 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; doing well on oral beta-leslie therapy - Tachycardia see SVT - Tobacco abuse encouraged to quit smoking PAST SURGICAL HISTORY Procedure Laterality Date - CARDIAC CATH 11/21/2017 minimal luminal irregularities of LAD and CX; RCA not well visualized and might have anomalous origin; LVEF 65% [facility] - ECHOCARDIOGRAM 11/21/2017 normal LV systolic fxn; LVEF 60%; trivial MR, TR; normal diastolic fxn; no significant valvular abnormalities - TUBAL LIGATION HX 1994 SOCIAL HISTORY Social History Substance Use Topics - Smoking status: Current Some Day Smoker - Smokeless tobacco: Never Used - Alcohol use No FAMILY HISTORY Problem Relation Age of Onset - Heart Attack Mother age 61; has coronary stent - Heart Mother - Diabetes Mother - Heart Attack Father - Coronary Artery Disease Father CABG - Heart disease Father - Diabetes Father - Colon Cancer Sister - Kidney Disease Brother on dialysis - No Known Problems Sister - No Known Problems Sister ALLERGIES: ALLERGIES No Known Allergies MEDICATIONS: metoprolol tartrate, short acting, (LOPRESSOR) 50 mg tablet Take 50 mg by mouth twice daily. aspirin, enteric coated (ASPIRIN, ENTERIC COATED) 81 mg EC tablet Take 81 mg by mouth once daily. ferrous sulfate 325 mg (65 mg iron) tablet Take 325 mg by mouth twice daily. REVIEW OF SYSTEMS: GENERAL: Negative for: Weight loss or gain, Fever or Chills, Weakness and Sleep difficulties. HEENT: Positive for:Impaired Vision , Negative for:Hearing Impairment, Nosebleeds and Bleeding Gums NECK: Negative for: Swelling, Pain, Stiffness RESPIRATORY: Negative for: Cough, Blood in Sputum, Shortness of breath, Wheezing, Apnea GASTROINTESTINAL: Negative for: Trouble swallowing, Heartburn, Change in bowel habits, Blood in stool, Dark black stools MUSCULOSKELETAL: Negative for: Muscle or joint pain NEUROLOGIC/PSYCHIATRI C: Negative for: Weakness, Paralysis, Numbness, Tingling, Tremor, Nervousness or anxiety, Depressed mood, Memory loss SKIN: Negative for: Rash, Itching HEMATOLOGICAL/LYMPHAT IC: Negative for: Easy bruising, Easy bleeding ENDOCRINE: Negative for: Heat or Cold Intolerance, Excessive Sweating, Frequent Urination, Frequent Thirst PHYSICAL EXAMINATION: BP 120/80 Pulse 92 Resp 16 Ht 5' 1 (1.55m) Wt 155 lb 12.8 oz (70.7kg) SpO2 98% BMI 29.45 kg/(m2). General: Well appearing, in no acute distress, speaking in complete sentences. Skin: No clubbing, no cyanosis. Eyes: Extra ocular movements intact, Non-icteric sclerae Neck: no jugular venous distention, Lungs: Clear to auscultation bilaterally, no wheezing or rhonchi. Heart: Regular rhythm, S1, S2 normal, no rub , no murmur Extremities: No peripheral edema . Grade 2/4 distal pulses bilaterally. Neuro: Oriented to person, place and time, alert, cooperative, gait coordinated. CARDIOVASCULAR MEDICINE TESTING: Electrocardiogram: Sinus rhythm 87 bpm; normal conduction intervals (MA 118 ms, QRS 92 ms); no WPW pattern I have personally reviewed the Electrocardiogram. ASSESSMENT/PLAN: 1. 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 Other chest pain - ICD9: 786.59, ICD10: R07.89 episodes of chest pain or pressure seem to correlate with episodes of SVT 3. Congenital heart anomaly - ICD9: 746.9, ICD10: Q24.9 possibly has anomalous origin of right coronary artery by [facility] 11/2017; scheduled for CT angiogram 12/23/2017 4. Anomalous origin of right coronary artery - ICD9: 746.85, ICD10: Q24.5 IMPRESSION: Ms. Red was diagnosed with SVT about a month ago in late October or early November 2017. This was associated with severe symptoms including chest pressure and lightheadedness. The reported abrupt termination of the SVT with intravenous adenosine is highly suggestive of the type of SVT that is AV node dependent. Such types of SVT include AV node reentry tachycardia (AVNRT) and AV reciprocating tachycardia (AVRT) using a concealed accessory pathway. The EKG in sinus rhythm does not reveal evidence for ventricular preexcitation AKA delta wave to suggest the presence of a manifest accessory pathway. She could still have a concealed accessory pathway with only retrograde conduction from the ventricles to the atria, and such pathway could result in SVT (AVRT). 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 She is scheduled to undergo cardiac CT angiogram in the next couple of days at [facility] to evaluate for the possible anomalous origin of the right coronary artery. I had a detailed discussion with Ms. Red and her daughter regarding SVT and its management. I did reassure her that the SVT is considered benign and not at all likely to harm her, and is not considered to be a dangerous type of heart arrhythmia. He said that, SVT can be quite bothersome with very rapid heart rates that can cause excessively bothersome symptoms and less commonly severe lightheadedness near syncope or syncope that could secondarily result in injury. So there is definitely an indication to treat the SVT to prevent recurrence given the excessively bothersome symptoms. Beta adrenergic blocking medications and non-dihydropyridine calcium channel blocking medications represent the first line approach to the treatment of SVT. Another approach that is typically reserved for drug refractory SVT or frequently recurring SVT as an alternative drug therapy, would be catheter ablation. I discussed these treatment options with Ms. Red in detail. She is very pleased with the control of the arrhythmia that seems to be provided by the current treatment with the beta leslie metoprolol. She is not keen at this point undergo an invasive procedure, and was particularly not enthusiastic about the requirement to spend the night in the hospital even for an overnight observation. That aspect of catheter ablation seem to be the deal breaker for considering such a procedure at this time. I did inform her that catheter ablation for AV floyd dependent type of SVT is associated with a very high rate of cure of the arrhythmia without the need of ongoing medical therapy, at a very low risk of serious complications. We had a detailed discussion regarding the options and I did tell her that either approach at this point, medical therapy or catheter ablation are very acceptable treatment options. She prefers at this point to continue with the beta leslie treatment and consider the options if the SVT recurs. This is a very reasonable treatment approach at this time. Regarding the gynecological surgery that has been considered, it seems from an arrhythmia standpoint the SVT is under appropriate control with medical therapy. So from an EP standpoint she could safely undergo a surgical procedure without high or prohibitive risk of serious complications. Please note that general cardiac clearance for a surgical procedure would need to be obtained from her tractor trailer driver, Dr. Aguilar. It seems prudent to see what the cardiac CT angiogram shows when it is performed in a couple days, but I will leave general cardiac clearance to his discretion. PLAN AND RECOMMENDATIONS: Ms. Red would like to continue with medical therapy for the SVT at this time. Return if symptoms worsen or fail to improve. She will continue to follow-up with her local tractor trailer driver, Dr. Aguilar. She was told that she could always call our office with any questions or concerns regarding arrhythmia. I would be happy to see her back again at any point in the future if she has recurrent issues with arrhythmia. Dani Willis MD 12/21/2017 [facility] Vital Signs Date Time Vital Sign Value Performing Clinician Facility 11-24-2022 08:22-0400 Body height 154.94 cm No Primary Care Physician [facility] 11-24-2022 08:22-0400 Body mass index (BMI) [Ratio] 28.7 kg/m2 No Primary Care Physician [facility] 11-24-2022 08:22-0400 Body temperature 97.3 [degF] No Primary Care Physician [facility] 11-24-2022 08:22-0400 Body weight 68.94 kg No Primary Care Physician [facility] 11-24-2022 08:22-0400 Diastolic blood pressure 77 mm[Hg] No Primary Care Physician [facility] 11-24-2022 08:22-0400 Heart rate 87 /min No Primary Care Physician [facility] 11-24-2022 08:22-0400 Respiratory rate 14 /min No Primary Care Physician [facility] 11-24-2022 08:22-0400 SaO2% (BldA) [Mass fraction] 100 % No Primary Care Physician [facility] 11-24-2022 08:22-0400 Systolic blood pressure 137 mm[Hg] No Primary Care Physician [facility] 11-17-2022 09:30-0400 Respiratory rate 14 /min [facility] 11-17-2022 08:31-0400 Body height 154.94 cm [facility] 11-17-2022 08:31-0400 Body mass index (BMI) [Ratio] 28.7 kg/m2 [facility] 11-17-2022 08:31-0400 Body temperature 97.3 [degF] [facility] 11-17-2022 08:31-0400 Body weight 68.94 kg [facility] 11-17-2022 08:31-0400 Diastolic blood pressure 84 mm[Hg] [facility] 11-17-2022 08:31-0400 Heart rate 87 /min [facility] 11-17-2022 08:31-0400 SaO2% (BldA) [Mass fraction] 98 % [facility] 11-17-2022 08:31-0400 Systolic blood pressure 127 mm[Hg] [facility] 11-15-2022 14:11-0400 Body mass index (BMI) [Ratio] 28.7 kg/m2 [facility] 11-15-2022 14:11-0400 Body temperature 97.9 [degF] [facility] 11-15-2022 14:11-0400 Body weight 68.94 kg [facility] 11-15-2022 14:11-0400 Diastolic blood pressure 72 mm[Hg] [facility] 11-15-2022 14:11-0400 Heart rate 88 /min [facility] 11-15-2022 14:11-0400 Respiratory rate 18 /min [facility] 11-15-2022 14:11-0400 SaO2% (BldA) [Mass fraction] 98 % [facility] 11-15-2022 14:11-0400 Systolic blood pressure 116 mm[Hg] [facility] 03-21-2022 16:52-0500 Diastolic blood pressure 85 mm[Hg] [facility] 03-21-2022 16:52-0500 Heart rate 103 /min [facility] 03-21-2022 16:52-0500 Respiratory rate 16 /min [facility] 03-21-2022 16:52-0500 SaO2% (BldA) [Mass fraction] 99 % [facility] 03-21-2022 16:52-0500 Systolic blood pressure 114 mm[Hg] [facility] 03-21-2022 15:44-0500 Body height 154.94 cm [facility] 03-21-2022 15:44-0500 Body mass index (BMI) [Ratio] 29.3 kg/m2 [facility] 03-21-2022 15:44-0500 Body temperature 97.5 [degF] [facility] 03-21-2022 15:44-0500 Body weight 70.5 kg [facility] 06-04-2021 11:50-0400 Body temperature 97.59 [degF] Loida Rendon AIRPORT 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 Work Phone: [facility] 06-04-2021 11:50-0400 Body weight 72.48 kg Loida Luz Elena AIRPORT 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 Work Phone: [facility] 06-04-2021 11:50-0400 Diastolic blood pressure 78 mm[Hg] Loida Rendon AIRPORT 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 Work Phone: [facility] 06-04-2021 11:50-0400 Heart rate 95 /min Loida Rendon AIRPORT 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 Work Phone: [facility] 06-04-2021 11:50-0400 Respiratory rate 18 /min Loida Rendon AIRPORT 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 Work Phone: [facility] 06-04-2021 11:50-0400 SaO2% (BldA) [Mass fraction] 98 % Loida Rendon AIRPORT 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 Work Phone: [facility] 06-04-2021 11:50-0400 Systolic blood pressure 120 mm[Hg] Loida Rendon AIRPORT 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 Work Phone: [facility] Encounters Encounter Date Encounter Type Care Provider Facility Start: 06-21-2024 End: 06-21-2024 ambulatory No Primary Care Physician Facility:[facility] Start: 01-12-2024 End: 01-12-2024 Emergency department patient visit No Primary Care Physician Facility:[facility] Start: 11-09-2023 End: 11-09-2023 Emergency department patient visit No Primary Care Physician Facility:[facility] Start: 10-14-2023 End: 10-14-2023 Emergency department patient visit No Primary Care Physician Facility:[facility] Start: 01-01-2023 End: 01-01-2023 Emergency department patient visit [facility] Start: 11-24-2022 End: 11-24-2022 Emergency department patient visit No Primary Care Physician [facility] Work Phone: Start: 11-17-2022 Non-patient / Non-visit No Primary Care Physician [facility] Start: 11-17-2022 End: 11-17-2022 Emergency department patient visit [facility] Work Phone: Start: 11-15-2022 End: 11-15-2022 Emergency department patient visit [facility] Work Phone: Start: 03-21-2022 End: 03-21-2022 Emergency department patient visit [facility] Start: 06-05-2021 Telephone encounter Antoni Goldberg MD Work Phone: [facility] Comment on above: Results (COVID+) Start: 06-04-2021 End: 06-04-2021 Subsequent hospital visit by physician Joan [facility] Work Phone: Radiology Comment on above: Cough [R05.9] Start: 06-04-2021 End: 06-04-2021 Patient encounter procedure Loida Rendon AIRPORT 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 Work Phone: [facility] Comment on above: Cough (Primary Dx); Tobacco use; URI, acute Start: 07-22-2020 End: 07-22-2020 Subsequent hospital visit by physician Cristina Banks AIRPORT OPERATIONS COORDINATOR - PUNCH PRESS SETTER Work Phone: [address] Comment on above: Arrived Start: 01-25-2018 End: 01-25-2018 Patient encounter procedure MAIKEL STROUD Facility:[facility] Start: 12-21-2017 End: 12-21-2017 Patient encounter procedure DANI WILLIS Facility:[facility] Procedures Date Procedure Procedure Detail Performing Clinician Start: 06-04-2021 Radiologic exam ches t 2 views Loida Rendon APRN.CNP Work Phone: Plan of Treatment Date Care Activity Detail Author Start: 10-23-2023 Covid-19 Vaccine ( season) Covid-19 Vaccine ( season) [facility] Start: 10-23-2023 Influenza vaccination Influenza Vacc ine (#1) [facility] Start: 03-29-2023 Screening for malign ant neoplasm of cervix Cervical Cancer Screening [facility] Start: 11-24-2022 Bacteria identified in Urine by Culture Urine Culture [facility] Start: 11-24-2022 [facility] Start: 03-21-2022 Plain chest X-ray Chest 1 View (Port able) [facility] Start: 03-21-2022 XR Chest Single view [facility] Start: 10-22-2021 Influenza vaccination INFLUENZ A (Season Ended) [facility] Start: 06-04-2021 End: 06-18-2021 Influenza virus A and B RNA and SARS-CoV-2 (COVID-19) N gene panel - Respiratory specimen by MIKKI with probe detection [facility] Work Phone: Comment on above: Expected: 06/04/2021 , Expires: 06/18/2021 Start: 10-22-2020 Influenza vaccination Flu vacc ine (Season Ended) [facility] Work Phone: Start: 08-13-2019 Screening for malign ant neoplasm of breast Breast cancer screen [facility] Work Phone: Start: 08-13-2019 Screening for malign ant neoplasm of colon Colon cancer screen colonoscopy [facility] Work Phone: Start: 08-13-2019 Shingles Vaccine (1 of 2) Shingles Vaccine (1 of 2) [facility] Work Phone: Start: 08-13-2019 SHINGRIX VACCINE (1 of 2) SHINGRIX VACCINE (1 of 2) [facility] Start: 2014 COLOGUARD (FIT-DNA) COLOGUARD (FIT-D NA) [facility] Start: 2014 Colonoscopy COLONOSCOPY [facility] Start: 2014 COLORECTAL CANCER SCREENING COLORECTAL CANCER SCREENING [facility] Start: [address] COLONOGRAPHY [facility] Start: 2014 DIABET[facility] SCREEN [facility] Start: 2014 Diabetes Screening Diabetes Screenin g [facility] Start: 2014 FECAL OCCULT BLOOD FECAL OCCULT BLOO D [facility] Start: 2014 Lipid panel Lipid Screening [facility] Start: 2014 LIPID SCREEN LIPID SCREEN [facility] Start: 2014 Screening for malign ant neoplasm of colon [facility] Start: 2014 SIGMOIDOSCOPY SIGMOIDOSCOPY [facility] Start: 2009 Lipid panel Lipid screen [facility] Work Phone: Start: 2009 Mammography MAMMOGRAM [facility] Start: 2009 Screening for malign ant neoplasm of breast Mammogram Screening [facility] Start: 08-13-1999 HPV TESTING HPV TESTING [facility] Start: 1990 PAP TESTING PAP TESTING [facility] Start: 1990 Screening for malign ant neoplasm of cervix Cervical cancer screen [facility] Work Phone: Start: 1988 DTaP/Tdap/Td vaccine (1 - Tdap) DTaP/Tdap/Td vaccine (1 - Tdap) [facility] Work Phone: Start: 1988 Hepatitis B Vaccine (1 of 3 - 19+ 3-dose series) Hepatitis B Vaccine (1 of 3 - 19+ 3-dose series) [facility] Start: 1988 Urine microalbumin profile [facility] Start: 08-13-1987 Anxiety Screening Anxiety Screening [facility] Start: 08-13-1987 Depression Screening Depression Scre ening [facility] Start: 08-13-1987 HEPATITIS C SCREENING HEPATITIS C [facility] Start: 08-13-1987 Hepatitis C screening Hepatitis C [facility] Start: 08-13-1987 HIV SCREENING HIV SCREENING [facility] Start: 08-13-1987 HIV screening HIV Screening [facility] Start: 1984 HIV screening HIV screen [facility] Work Phone: Start: 1981 Adult depression screening assessment DEPRESSION SCREENING [facility] Start: 1981 COVID-19 Vaccine (1) COVID-19 Vaccin e (1) [facility] Work Phone: Start: 08-13-1975 Pneumococcal vaccination Pneum ococcal Vaccine (1 of 2 - PCV) [facility] Start: 1974 COVID-19 VACCINE (1) COVID-19 VACCIN E (1) [facility] Start: 1969 Hepatitis C screening Hepatitis C sc reen [facility] Work Phone: Patient Education [facility] Work Phone: Patient referral [facility] Work Phone: Payers Date Payer Category Payer Self-pay [id number] 2017 Medicaid UHC MEDICAID UHC COMMUNITY PLAN MEDICAID [id number] 2017-Present [phone] [address] [place] [address] Medicaid [id number] 2017 Medicaid [facility] MEDICAID [facility] COMMUN[facility] MEDICAID [facility] [id number] 2017-2022 [address] [place] [address] Medicaid [id number] 1969 Unknown [id number] 1969 Unknown [id number] Medicaid [id number] Medicaid [id number] Unknown [id number] Unknown [id number] Unknown [id number] Unknown [id number] Social History Date Type Detail [facility] Work Phone: Start: 1970 Sex Assigned At Not on file [facility] [place] Work Phone: Start: 12-21-2017 Tobacco smoking stat [facility] Occasional tobacco smoker [facility] Start: 12-21-2017 Tobacco use and exposure Smokeless tobacco non-user [facility] Start: 06-04-2021 Alcohol intake 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 (finding) [facility] Start: 05-25-2021 End: 06-04-2021 Exposure to SARS-CoV-2 (event) Not sure [facility] Start: 03-21-2022 End: 11-24-2022 Tobacco smoking status NHIS Unknown if ever smoked [facility] Start: 11-20-2017 None [facility] Start: 11-20-2017 With Family [facility] Start: 06-27-2020 Cigarettes [facility] Start: 1970 Sex Assigned At Female [facility] Start: 01-29-2020 End: 06-04-2021 History of Social function [facility] Start: 01-29-2020 End: 06-04-2021 Tobacco use panel [facility] National Score (1-100), lower number is lower risk Not on file [facility] Mental Status Date Assessment Result Facility 03-21-2022 Cognitive function Voice/Name [facility] Work Phone: Clinical Notes 02-15-2021 to 06-05-2021 Telephone Encounter - Perla Kennedy LPN - 06/05/2021 8:22 AM EDTTelephone Encounter - Antoni Grimes MD - 06/05/2021 7:12 AM EDTPatient InstructionsLoida Rendon APRN.[facility] - 06/04/2021 12:06 PM EDT Note Date & Type Note Facility 06-05-2021 Miscellaneous Notes Phone call placed patient advised (se prior provider encounter) Patient verbalized understanding, agreed with plan of care. Perla Kennedy LPN COVID test was positive. Stay home for 5 days from symptom onset. If you have no symptoms or your symptoms are resolving after 5 days, you can leave your house. Continue to wear a mask around others for 5 additional days. If you have a fever, continue to stay home until your fever resolves. Close contacts should quarantine. Treat with supportive care. F/u with worsening symptoms; ER if severe. documented in this encounter [facility] 06-04-2021 Influenza virus A and B RNA and SARS-CoV-2 (COVID-19) N gene panel MIKKI+probe (Resp) COVID 19 RESULT: SARS-CoV-2 (Agent of COVID-19) Detected by RT-PCR or equivalent method. braulio BPLB-[id number]-2_[employer] (YNES)_EUA This test was developed and its performance characteristics determined by [facility]'s Dani Rodrigues [facility]ology [facility] [place]. This test has been authorized by FDA under an Emergency Use Authorization (EUA). This test has been validated in accordance with the FDA's Guidance Document Policy for Diagnostics Testing in Laboratories Certified to Perform High Complexity Testing under CLIA prior to Emergency use Authorization for Coronavirus Disease 2019 during the Public Health Emergency issued on April 21, 2019. Test performed by [facility], Dani Ravi [facility] [place], [address] [place] [address]. INFLUENZA A PCR: Negative for Influenza A by RT-PCR INFLUENZA B PCR: Negative for Influenza B by RT-PCR [facility] Comment on above: Performed By: #### [id number] #### [facility] CLIA [id number] [address] [place] [address] [place] 06-04-2021 Note HNO ID: [id number] Author: RT David(R) Service: ? Author Type: Hand Funnel Coater Type: Progress Notes Filed: 06/04/2021 12:34 PM Note Text: Radiology Service Progress Note PATIENT NAME: Isaac Red DATE OF SERVICE: June 04, 2021 TIME: 12:33 PM PATIENT IDENTITY VERIFICATION COMPLETED USING TWO (2) IDENTIFIERS: Name and Date of confirmed by patient verbally. FALL SCREENING: Has the patient had 2 falls in the last year or 1 fall with injury or currently using an Ambulatory Assistive Device (Walker, Cane, Wheelchair, Crutches, etc.)? No PATIENT GENDER DATA: Female. status: : No status: NO. PATIENT RELEVANT IMPLANT DATA REVIEWED: Yes RADIOLOGY DEPARTMENT: General X-ray: Exam(s) Completed: Chest X-Ray PERIPHERAL IV DATA: Not applicable SIGNED BY: RT David(R) June 04, 2021 12:33 PM [facility] 06-04-2021 Note HNO ID: [id number] Author: Loida Rendon APRN.PUNCH PRESS SETTER Service: ? Author Type: Nurse Practitioner Type: Progress Notes Filed: 06/04/2021 3:46 PM Note Text: This note was created using [employer]. Subjective Isaac Red is a 50 year old female who presents with cough, fatigue, Decrease in appetite,chest wall pain from coughing and states upper back pain from coughing , and congestion x 4 days. Her COVID test through her place of employment on Tuesday was negative. She is a smoker with a history of SVT- she denies any current palpitations or cardiac symptoms. Denies CP. Denies N/V/D. 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 MEDICATIONS predniSONE (DELTASONE) 10 mg tablet Take 6 tabs for 3 days, then 4 tabs for 3 days, then 2 tabs for 3 days then 1 tab for 3 days with food. albuterol HFA (VENTOLIN HFA) 90 mcg/actuation inhaler Inhale 2 Puffs as instructed every 4 hours as needed for wheezing/shortness of breath. phenazopyridine (PYRIDIUM) 200 mg tablet Take 1 tablet by mouth three times daily as needed. metoprolol tartrate, short acting, (LOPRESSOR) 50 mg tablet Take 50 mg by mouth twice daily. aspirin, enteric coated (ASPIRIN, ENTERIC COATED) 81 mg EC tablet Take 81 mg by mouth once daily. ferrous sulfate 325 mg (65 mg iron) tablet Take 325 mg by mouth twice daily. FAMILY HISTORY Problem Relation Age of Onset - Heart Attack Mother age 61; has coronary stent - Heart Mother - Diabetes Mother - Heart Attack Father - Coronary Artery Disease Father CABG - Heart disease Father - Diabetes Father - Colon Cancer Sister - Kidney Disease Brother on dialysis - No Known Problems Sister - No Known Problems Sister Social History Tobacco Use - Smoking status: Current Some Day Smoker - Smokeless tobacco: Never Used Substance Use Topics - Alcohol use: No - Drug use: No Review of Systems Constitutional: Positive for activity change, appetite change, diaphoresis and fatigue. Negative for chills and fever. HENT: Positive for congestion, sinus pressure, sinus pain and voice change. Negative for ear discharge, ear pain, sore throat and trouble swallowing. Eyes: Negative. Respiratory: Positive for cough, chest tightness and shortness of breath. Negative for choking. Cardiovascular: Positive for chest pain. Negative for palpitations. Gastrointestinal: Negative for diarrhea, nausea and vomiting. Genitourinary: Negative. Musculoskeletal: Negative for arthralgias and myalgias. Skin: Negative for color change. Neurological: Positive for headaches. Psychiatric/Behavioral: Negative for confusion. Objective BP 120/78 Pulse 95 Temp 36.4 ?C (97.6 ?F) Resp 18 Wt 72.5 kg (159 lb 12.8 oz) SpO2 98% BMI 30.19 kg/m? Physical Exam Vitals reviewed. Constitutional: General: She is not in acute distress. Appearance: Normal appearance. HENT: Head: Normocephalic and atraumatic. Right Ear: External ear normal. Left Ear: External ear normal. Nose: Congestion present. Mouth/Throat: Mouth: Mucous membranes are moist. Pharynx: Oropharynx is clear. Eyes: Extraocular Movements: Extraocular movements intact. Conjunctiva/sclera: Conjunctivae normal. Cardiovascular: Rate and Rhythm: Normal rate and regular rhythm. Heart sounds: Normal heart sounds. Pulmonary: Effort: Pulmonary effort is normal. No respiratory distress. Breath sounds: No stridor. Rhonchi present. No wheezing. Chest: Chest wall: No tenderness. Musculoskeletal: Cervical back: Normal range of motion and neck supple. Lymphadenopathy: Cervical: Cervical adenopathy present. Skin: General: Skin is warm and dry. Capillary Refill: Capillary refill takes less than 2 seconds. Coloration: Skin is not jaundiced or pale. Neurol (more content not included)... [facility] 06-04-2021 Instructions Alan Kebede - 06/04/2021 1:00 PM EDT SMOKING CESSATION: Your doctor advises you to stop smoking because of the bad effects it has on your health. Tobacco smoke has over 200 known poisons and smoking increases the risk of many medical problems including: Pneumonia, bronchitis, and emphysema. Cancers of the lung, lip, mouth, voice box, pancreas, and bladder. There are over 30 chemicals in tobacco smoke that cause cancer. Heart attacks, angina, stroke, and peripheral blood vessel disease. Stomach ulcers and internal bleeding. Stillbirths and smaller babies. Facial wrinkles, blindness, and increased risk for fractures. Cancer, respiratory infections, and heart disease in your spouse and children from second-hand smoke exposure and genetic damage to sperm. Even smoking lightly shortens your life expectancy by several years; a 2-pack a-day smoker loses about 8 years of his or her life. You can greatly reduce the risk of medical problems by stopping now. Within days of quitting smoking your circulation returns to normal, you lessen the risk of having a heart attack, and your lung capacity improves. It may take months to clear up your lungs. Quitting for 10 years cuts your lung cancer risk to about that of nonsmokers. It is not easy to quit smoking. Nicotine is addicting, and longtime habits are hard to change. To start with you can write down all your reasons to quit and tell your family and friends you want to quit and ask for their help. Throw your cigarettes away, chew gum or cinnamon sticks, keep your hands busy, and drink extra water or juice. Go for walks and practice deep breathing to relax. Think of all the money you are saving, from $500-1,000 a year for the average pack-a-day smoker. Nicotine gum and patches have clearly been shown to improve success at efforts to stop smoking. Zyban is an anti-depressant drug that may be prescribed to reduce nicotine withdrawal symptoms and the urge to smoke. For more information and advice on programs to stop smoking, call your doctor, the lung or heart association, or your local cancer society. You may also try the [employer] [place] phone number 7-607-O-CAN-NOW ( ) or visit them on the internet, http://[employer].M2TECH/. documented in this encounter [facility] 06-04-2021 History of Presen t illness Narrative This note was created using [employer]. Subjective Isaac Red is a 50 year old female who presents with cough, fatigue, Decrease in appetite,chest wall pain from coughing and states upper back pain from coughing , and congestion x 4 days. Her COVID test through her place of employment on Tuesday was negative. She is a smoker with a history of SVT- she denies any current palpitations or cardiac symptoms. Denies CP. Denies N/V/D. 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 by [facility] 11/2017; scheduled for CT angiogram 12/23/2017 Dyspnea SVT (supraventricular tachycardia) (HCC) diagnosed 10/2017; terminated after IV adenosine and metoprolol, suggestive of AV floyd dependent type of SVT such as AVNRT or AVRT; doing well on oral beta-leslie therapy Tachycardia see SVT Tobacco abuse encouraged to quit smoking PAST SURGICAL HISTORY Procedure Laterality Date CARDIAC CATH 11/21/2017 minimal luminal irregularities of LAD and CX; RCA not well visualized and might have anomalous origin; LVEF 65% [facility] ECHOCARDIOGRAM 11/21/2017 normal LV systolic fxn; LVEF 60%; trivial MR, TR; normal diastolic fxn; no significant valvular abnormalities TUBAL LIGATION HX 1994 ALLERGIES Patient has no known allergies. MEDICATIONS predniSONE (DELTASONE) 10 mg tablet Take 6 tabs for 3 days, then 4 tabs for 3 days, then 2 tabs for 3 days then 1 tab for 3 days with food. albuterol HFA (VENTOLIN HFA) 90 mcg/actuation inhaler Inhale 2 Puffs as instructed every 4 hours as needed for wheezing/shortness of breath. phenazopyridine (PYRIDIUM) 200 mg tablet Take 1 tablet by mouth three times daily as needed. metoprolol tartrate, short acting, (LOPRESSOR) 50 mg tablet Take 50 mg by mouth twice daily. aspirin, enteric coated (ASPIRIN, ENTERIC COATED) 81 mg EC tablet Take 81 mg by mouth once daily. ferrous sulfate 325 mg (65 mg iron) tablet Take 325 mg by mouth twice daily. FAMILY HISTORY Problem Relation Age of Onset Heart Attack Mother age 61; has coronary stent Heart Mother Diabetes Mother Heart Attack Father Coronary Artery Disease Father CABG Heart disease Father Diabetes Father Colon Cancer Sister Kidney Disease Brother on dialysis No Known Problems Sister No Known Problems Sister Social History Tobacco Use Smoking status: Current Some Day Smoker Smokeless tobacco: Never Used Substance Use Topics Alcohol use: No Drug use: No Review of Systems Constitutional: Positive for activity change, appetite change, diaphoresis and fatigue. Negative for chills and fever. HENT: Positive for congestion, sinus pressure, sinus pain and voice change. Negative for ear discharge, ear pain, sore throat and trouble swallowing. Eyes: Negative. Respiratory: Positive for cough, chest tightness and shortness of breath. Negative for choking. Cardiovascular: Positive for chest pain. Negative for palpitations. Gastrointestinal: Negative for diarrhea, nausea and vomiting. Genitourinary: Negative. Musculoskeletal: Negative for arthralgias and myalgias. Skin: Negative for color change. Neurological: Positive for headaches. Psychiatric/Behavioral: Negative for confusion. Objective BP 120/78 Pulse 95 Temp 36.4 C (97.6 F) Resp 18 Wt 72.5 kg (159 lb 12.8 oz) SpO2 98% BMI 30.19 kg/m Physical Exam Vitals reviewed. Constitutional: General: She is not in acute distress. Appearance: Normal appearance. HENT: Head: Normocephalic and atraumatic. Right Ear: External ear normal. Left Ear: External ear normal. Nose: Congestion present. Mouth/Throat: Mouth: Mucous membranes are moist. Pharynx: Oropharynx is clear. Eyes: Extraocular Movements: Extraocular movements intact. Conjunctiva/sclera: Conjunctivae normal. Cardiovascular: Rate and Rhythm: Normal rate and regular rhythm. Heart sounds: Normal heart sounds. Pulmonary: Effort: Pulmonary effort is normal. No respiratory distress. Breath sounds: No stridor. Rhonchi present. No wheezing. Chest: Chest wall: No tenderness. Musculoskeletal: Cervical back: Normal range of motion and neck supple. Lymphadenopathy: Cervical: Cervical adenopathy present. Skin: General: Skin is warm and dry. Capillary Refill: Capillary refill takes less than 2 seconds. Coloration: Skin is not jaundiced or pale. Neurological: General: No focal deficit present. Mental Status: She is alert and oriented to person, place, and time. Mental status is at baseline. Psychiatric: Mood and Affect: Mood normal. Behavior: Behavior normal. TEACHING PROVIDER (Physician/PA/AIRPORT OPERATIONS COORDINATOR) NOTE OF PERSONAL INVOLVEMENT IN CARE: I have personally seen and examined the patient and performed the medical decision-making components. I have reviewed the Advanced Practice Registered Nurse (AIRPORT OPERATIONS COORDINATOR) Student's documentation and verified the findings in the note as written. Any additions or changes are noted in bold/italics. Signature: Loida Rendon Date: 06/04/2021 Time: 3:20 PM Assessment and Plan ASSESSMENT/PLAN: 1. Cough - ICD9: 786.2, ICD10: R05.9 (primary diagnosis) - likely secondary to viral infection and chronic tobacco use - COVID WITH FLUA+B, ROUTINE - XR CHEST 2V FRONTAL/LAT- negative for acute process. - PREDNISONE 10 MG TABLET-prednisone taper - ALBUTEROL SULFATE HFA 90 MCG/ACTUATION AEROSOL INHALER 2. Tobacco use - ICD9: 305.1, ICD10: Z72.0 - Cessation encouraged. that's probably why I always get sick - Physiologic and physical aspects of tobacco addiction as well as strategies for quitting were discussed. - Counseling was given focusing on the harmful effects of this addiction especially given the patient's medical condition(s) which will be worsened because of the chemicals in tobacco. - PREDNISONE 10 MG TABLET - ALBUTEROL SULFATE HFA 90 MCG/ACTUATION AEROSOL INHALER 3. URI, acute - ICD9: 465.9, ICD10: J06.9 - Discussed viral etiology and rationale for treatment. - Symptomatic treatment with prn analgesia - Supportive care with fluids and rest - Follow up in 3-5 days if symptoms persist or sooner if worsening of symptoms Loida Rendon APRN.PUNCH PRESS SETTER Alan Kebede RN documented in this encounter [facility] 02-15-2021 Note HNO ID: [id number] Author: Dony Edwards PA-C Service: ? Author Type: Physician Commercial Lines Sales Executive Type: Progress Notes Filed: 02/15/2021 1:11 PM Note Text: Subjective HPI HPI Isaac Red is a 50 year old female who presents today for CC of suspected UTI. Blood in urine since this AM. Notes that she's in intense pain, that it radiates from where she pees all the way up to her fingertips. Tends to get these at least once/year. BP 122/82 Pulse 97 Temp 36.4 ?C (97.6 ?F) (Left Tympanic) Resp 16 Wt 71.3 kg (157 lb 3.2 oz) SpO2 98% BMI 29.70 kg/m? ALLERGIES No Known Allergies ACTIVE PROBLEM LIST Svt (Supraventricular Tachycardia) (Hcc) Chest Pain Congenital Heart Anomaly Anomalous Origin of Right Coronary Artery Family History Problem Relation Age of Onset - Heart Attack Mother age 61; has coronary stent - Heart Mother - Diabetes Mother - Heart Attack Father - Coronary Artery Disease Father CABG - Heart disease Father - Diabetes Father - Colon Cancer Sister - Kidney Disease Brother on dialysis - No Known Problems Sister - No Known Problems Sister Social History Tobacco Use - Smoking status: Current Some Day Smoker - Smokeless tobacco: Never Used Substance Use Topics - Alcohol use: No - Drug use: No Review of Systems Constitutional: Positive for chills. Negative for fever and malaise/fatigue. Gastrointestinal: Negative for abdominal pain, constipation, diarrhea, nausea and vomiting. Genitourinary: Positive for dysuria and hematuria. Negative for flank pain, frequency and urgency. Objective BP 122/82 Pulse 97 Temp 36.4 ?C (97.6 ?F) (Left Tympanic) Resp 16 Wt 71.3 kg (157 lb 3.2 oz) SpO2 98% BMI 29.70 kg/m? Physical Exam Constitutional: Appearance: Normal appearance. Cardiovascular: Rate and Rhythm: Normal rate and regular rhythm. Heart sounds: S1 normal and S2 normal. No murmur heard. Pulmonary: Effort: Pulmonary effort is normal. Breath sounds: Normal breath sounds. No decreased breath sounds, wheezing, rhonchi or rales. Abdominal: General: Bowel sounds are normal. Palpations: Abdomen is soft. There is no hepatomegaly or splenomegaly. Tenderness: There is no abdominal tenderness. Skin: General: Skin is warm and dry. Findings: No rash. Neurological: Mental Status: She is alert and oriented to person, place, and time. ASSESSMENT/PLAN: 1. Acute cystitis with hematuria - ICD9: 595.0, ICD10: N30.01 (primary diagnosis) UA findings suggestive of UTI, so will go ahead and empirically treat w/ Macrobid. Recommend plenty of fluids and rest. Will send out for culture and adjust treatment if necessary pending results - UA DIP, URINE (POC) - URINE CULTURE - PHENAZOPYRIDINE 200 MG TABLET - NITROFURANTOIN MONOHYDRATE AND MACROCRYSTAL 100 MG ORAL CAP 2. Dysuria - ICD9: 788.1, ICD10: R30.0 acute - UA positive for ananda esterase, hematuria and proteinuria - UA DIP, URINE (POC) - URINE CULTURE - PHENAZOPYRIDINE 200 MG TABLET Pt advised to see PCP if symptoms persist or progress. Reviewed red flags with patient and when to seek care sooner. The patient indicates understanding of these issues and agrees with the plan. Dony Edwards PA-C [facility] Discharge summary Note Date/Time November 17, 2022 8:46am [facility] Medical Records Department [address] [place] [address] Emergency Department Summary 11/17/22 MR#: [id number] Acct: [id number] Name: ISAAC RED Rep #:[id number] : 1970 52 From: Elie Rg DO PCP: Care Physician,No Primary Status :REG ER Location: ED HPI History of Present Illness Chief Complaint: Lower Extremity Injury Narrative Narrative: 52-year-old female with pain behind her left knee for months. Patient denies any trauma. She states she has antalgic gait. Patient states that she has no history of DVT/PE. No recent travel. No recent surgery. Has not been bedridden immobilized. She not on any exogenous hormones. Patient is not anticoagulated. Patient states its worse with movement and better with rest. She states she was urged by her family members to, rule out DVT because of the pain. Chest pain or shortness of breath. PFSH PFSH Medical History Anomalous origin of right coronary artery Chest pain Congenital heart disease Coronary artery disease Hypertension Iron deficiency anemia Nicotine dependence NSTEMI (non-ST elevated myocardial infarction) Obesity (BMI 30.0-34.9) Old myocardial infarction Pre-diabetes SVT (supraventricular tachycardia) Tobacco abuse Tobacco use Home Medications aspirin 81 mg tablet,delayed release 81 mg PO DAILY 05/05/22 [History Last Taken Unknown] carvedilol 6.25 mg tablet 6.25 mg PO BID #180 tabs 05/05/22 [Rx Last Taken Unknown] metformin 500 mg tablet 500 mg PO DAILY 05/05/22 [History Last Taken Unknown] Allergy/AdvReac Type Severity Reaction Status Date / Time No Known Allergies Allergy Verified 11/17/22 08:33 Family History Father Diabetes Myocardial infarction CAD (coronary artery disease) CABG Mother Diabetes Myocardial infarction Grandfather CVA (cerebral vascular accident) Sister , age 45 Colon cancer Brother Kidney disease on dialysis Surgical History History of left heart catheterization (~2018) History of tubal ligation Social History Smoking Status: Current every day smoker tobacco type: cigarettes alcohol intake: never substance use type: does not use caffeine: Yes Type: tea Number of servings: 1 ROS ROS ED Constitutional Constitutional ED: Denies chills, fever(s) or sweats Eyes Eyes: Denies blurry vision or change in vision ENT ENT ED: Denies ear pain or sore throat Cardiovascular Cardiovascular: Denies chest pain, palpitations or racing heartbeat Respiratory/Chest Respiratory/Chest: Denies cough, dyspnea or sputum Gastrointestinal Gastrointestinal: Denies abdominal pain, constipation, diarrhea, nausea or vomiting Genitourinary Genitourinary ED: Denies dysuria, hematuria or urinary frequency Musculoskeletal Musculoskeletal: Denies arthralgias, myalgias or neck pain Integumentary Denies abscess, Abrasions or rash Neurologic Neurologic: Denies headache(s), paresthesias or weakness Psychiatric Psychiatric: Denies anxiety, depression, suicidal ideation or suicidal thoughts Endocrine Endocrinology: Denies polydipsia or polyuria EXAM Physical Exam Const Vital Signs: 11/17/22 08:31 Temperature 97.3 F L Temperature Source Temporal Pulse Rate 87 Respiratory Rate 14 Blood Pressure 127/84 H Blood Pressure Mean 98 Pulse Ox 98 Oxygen Delivery Method Room Air Positive well nourished HEENT normocephalic and atraumatic Resp normal respiratory effort and no retractions Cardio regular rate and regular rhythm Extremity normal to inspection Extremity Narrative: Mild tenderness to palpation posterior left knee. No edema. No bruising, swelling. Calves are soft palpated. Neuro oriented x3 and CN's II-XII intact bilaterally Sensorium / Orientation: alert Motor Exam: strength 5/5 throughout Psych mental status grossly normal Skin no wounds MDM MDM MDM Narrative Medical decision making narrative: Patient presenting with pain behind the left knee and is concerned for DVT although she does not have any risk factors. Score for DVT is -1 given she does have some tenderness. Will obtain DVT study. Patient needs x-ray of the knee. Differential includes muscle strain, DVT, Bean's cyst. Duplex of the left lower extremity is negative for DVT however the sprinkler repair technician states that she has poor valves. At this point I feel the patient stable for discharge home. Return precautions discussed. Impression: 1. Left knee pain Discharge Plan Triage Chief Complaint: Lower Extremity Injury ED Provider: Elie Rg Dx/Rx/DC Orders Prescriptions: No Action metformin 500 mg tablet 500 mg PO DAILY carvedilol 6.25 mg tablet 6.25 mg PO BID Qty: 180 3RF Rx Instructions: must administer with a meal/food aspirin 81 mg tablet,delayed release (DR/EC) 81 mg PO DAILY Primary Care Provider: Care Physician,No Primary Referrals: Care Physician,No Primary [Primary Care Provider] - What to do if you have Problems For any increased pain, shortness of breath, bleeding, nausea or vomiting, chestpain, or any unexpected problems, contact your Primary Care Provider. Call [facility] ([phone]) or report to the closest Emergency Room. Call 911 if necessary. 11/17/22913 <Electronically signed by Elie Rg DO> Cosigner Signature (if applicable): CC: No Primary Care Physician ~ Signed [facility] Work Phone: Evaluation note* Diagnosis Cough- Primary Tobacco use Tobacco use disorder URI, acute Acute upper respiratory infections of unspecified site [facility] noteNo assessment information availableWDayton [facility] Work Phone: Evaluation note* Diagnosis Cough documented in this encounter [facility] Summary Purpose Family History No Family History Records Found Relationship Condition Age at Onset Recorded Date/T jimmy father Diabetes mellitus Unknown Myocardial infarction Unknown Coronary artery disease Unknown mother Diabetes mellitus Unknown grandfather Cerebrovascular accident (CVA) Unknown sister Malignant neoplasm of colon Unknown brother Kidney disorder Unknown Advance Directives No Advanced Directives Records Found Advance Directive Response Recorded Date/ Time Living Will No March 21 3:50pm Power of Tsa Screener No March 21, 2022 3:50pm Advance Directive Response Recorded Date/ Time Living Will No November 17, 2022 9:26am Power of Tsa Screener No October 9:26am Advance Directive Response Recorded Date/ Time Living Will No November 24 9:17am Power of Tsa Screener No November 24 023 9:17am Reason for Referral Specialty Diagnoses / Procedures Referred By Contac t Referred To Contact Diagnoses Cough Tobacco use Loida Rendon, 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 [address] [facility] [place] [address] Referral ID Status Reason Start Date Expiration Date Visits Re quested Visits Authorized [id number] Closed 1 1 Health Concerns Infection Onset Date Last Indicated Resolved Time COVID-19 Rule-Out 06/04/2021 06/04/2021 Infection Onset Date Last Indicated Resolved Time COVID-19 Rule-Out 06/04/2021 06/04/2021 06/05/2021 7:03 AM EDT COVID-19 Confirmed 06/04/2021 06/04/2021 Chief Complaint and Reason for Visit Chief Complaint chest pain Chief Complaint LEFT LEG PAIN left leg Chief Complaint LEFT LEG PAIN left leg UTI Additional Source Comments INFORMATION SOURCE (unrecogn ized section and content) DATE CREATED AUTHOR 01/29/2018 [facility] DATE CREATED AUTHOR AUTHOR'S ORGANIZ ATION 04/12/2018 [facility] DATE CREATED AUTHOR AUTHOR'S ORGANIZ ATION 06/05/2021 [facility] DATE CREATED AUTHOR AUTHOR'S ORGANIZ ATION 01/02/[address] [facility] DATE CREATED AUTHOR AUTHOR'S ORGANIZ ATION 06/26/2024 [facility] Source Comments (unrecognize d section and content) In the event this informatio n is protected by the Federal Confidentiality of Alcohol and Drug Abuse Patient Records regulations: The Federal rules restrict any use of the information to criminally investigate or prosecute any alcohol or drug abuse patient.[facility] the event this information is protected by the Federal Confidentiality of Alcohol and Drug Abuse Patient Records regulations: The Federal rules restrict any use of the information to criminally investigate or prosecute any alcohol or drug abuse patient.[facility] Hospital[facility] the event this information is protected by the Federal Confidentiality of Alcohol and Drug Abuse Patient Records regulations: The Federal rules restrict any use of the information to criminally investigate or prosecute any alcohol or drug abuse patient.[facility] Reason for Visit (unrecogniz ed section and content) Reason Comments Cough Pt reported SOB, ninoska st pain x4 days Pain, Back upper back pain rate d 5 Reason Comments Results COVID+ Care Teams (unrecognized sec tion and content) Supervisor Color Paste Mixing Relationship Specialty Start Date End Date Cony Barnett PCP - General Family Practice 12/21/17 Rocky Aguilar [address] [id number] Specialty Fiberglass Ski Maker Cardiology 12/21/17 Supervisor Color Paste Mixing Relationship Specialty Start Date End Date Cony Barnett PCP - General Family Practice 12/21/17 Rocky Aguilar [address] [place] [address] Specialty Fiberglass Ski Maker Cardiology 12/21/17 Team Status: Active Member Role Status Dates [facility] Family Provider Active No Primary Care Physician Primary Care Provider Active Team Status: Inactive Member Role Status Dates Dr. Malik Levy DO Emergency Provider Active No Primary Care Physician Primary Care Provider Active Team Status: Inactive Member Role Status Dates No Primary Care Physician Primary Care Provider Active Ed Physician Provider Emergency Provider Active Team Status: Inactive Member Role Status Dates No Primary Care Physician Primary Care Provider Active Dr. Elie Rg DO Emergency Provider Active Team Status: Active Member Role Status Dates No Primary Care Physician Primary Care Provider Active Dr. Quinn Segovia MD Attending Provider Active Team Status: Inactive Member Role Status Dates No Primary Care Physician Primary Care Provider Active Dr. Anna Sherman MD Emergency Provider Active Team Status: Inactive Member Role Status Dates No Primary Care Physician Primary Care Provider Active Ed Physician Provider Attending Provider, Emergency Pr ovider Active Team Status: Inactive Member Role Status Dates No Primary Care Physician Primary Care Provider Active Dr. Elie Rg DO Attending Provider, Emergency Provider Active Supervisor Color Paste Mixing Relationship Specialty Start Date End Date Cony Barnett CNP [address] [facility] [address] [place] [address] PCP - General Family Medicine 12/21/17 Rocky Aguilar MD [address] [facility] [address] [place], [place] [address] Specialty Fiberglass Ski Maker Cardiology 12/21/17 Goals (unrecognized section and content) Goals may be documented in a n alternate sectionGoals may be documented in an alternate sectionGoals may be documented in an alternate section FOR RECORDS PERTAINING TO PATIENTS WHO ARE OR HAVE BEEN ENROLLED IN A CHEMICAL DEPENDENCY/SUBSTANCEABUSE PROGRAM, SOME INFORMATION MAY BE OMITTED. This clinical summary was aggregated from multiple sources. Caution should be exercised in using it in the provision of clinical care. This summary normalizes information from multiple sources, and as a consequence, information in this document may materially change the coding, format and clinical context of patient data. In addition, data may be omitted in some cases. CLINICAL DECISIONS SHOULD BE BASED ON THE PRIMARY CLINICAL RECORDS. [employer] [facility]. provides no warranty or guarantee of the accuracy or completeness of information in this document.
--- NOTE | 2024-10-13 09:30 | RAD_ITS ---
PROCEDURE: HIP, UNI W/ PELVIS 2-3 VIEWS 10/13/2024 REASON FOR EXAM: PAIN [place] a pop, trauma, initial encounter. TECHNIQUE: HIP, UNI W/ PELVIS 2-3 VIEWS Laterality: Left COMPARISON: None. FINDINGS: Bones: No fracture Joints: No dislocation or significant osteoarthritis. Soft tissues: Unremarkable. Other: RAD/HIP, UNI W/ Pelvis 2-3 Views IMPRESSION: No acute process identified. Reading [facility]
[2024-10-13 10:38] LABS: Hematocrit 44.0 % (37-47); Hemoglobin 14.3 g/dL (12.0-15.0); Immature Granulocytes Count 0.040 X10^3/uL (0.0-0.0); Mean Corp Hgb Conc 32.5 g/dL (32-36); Mean Corpuscular Volume 78.9 fL (81-99); Mean Platelet Vol. 11.0 fl (6.2-12.0); NRBC Flagged by Analyzer 0 % (0-5); Platelet Count 266 K/mm3 (150-450); RBC Distribution Width CV 14.3 % (11.6-14.6); RBC Distribution Width SD 40.7 fl (35.1-43.9); Red Blood Count 5.58 M/mm3 (4.2-5.4); White Blood Count 11.0 K/mm3 (4.4-11.0)
[2024-10-13 11:28] LABS: Cholesterol 177 mg/dL (<=200); Low Density Lipoprotein Calc. 86 mg/dL; Triglycerides 278 mg/dL; Very Low Density Lipoprotein 56 mg/dL (5-40); cholesterol:hdl ratio screen 4.97
[2024-10-13 11:30] LABS: Ferritin 91 ng/mL (22-378); Iron 47 ug/dL (50-170); Iron Binding Capacity,Total 287 ug/dL (250-450); Iron Binding Capacity,Unsat 240 ug/dL (228-428); Vitamin B12 485 pg/mL (180-914); Vitamin D,25 Hydroxy 26.7 ng/mL (30-100)
== END | disposition home or self-care (01) ==
LOC: RAD 09:13
PROVIDERS: Referring Provider Nurse Practitioner Family; Visit Provider Nurse Practitioner Family
DX: M25.552 Pain in left hip (principal); R73.03 Prediabetes; Z13.220 Encounter for screening for lipoid disorders; R53.83 Other fatigue
CPT/HCPCS: 36415; 73502; 80061; 82306; 82607; 82728; 83036; 83540; 83550; 84439; 84443; 85025

== ENCOUNTER → 2025-01-08 | Outpatient (CLI) | payer MEDICAID, SELFPAY ==
[2025-01-08 15:30] LABS: Hematocrit 42.0 % (37-47); Hemoglobin 13.3 g/dL (12.0-15.0); Immature Granulocytes Count 0.020 X10^3/uL (0.0-0.0); Mean Corp Hgb Conc 31.7 g/dL (32-36); Mean Corpuscular Volume 78.4 fL (81-99); Mean Platelet Vol. 10.8 fl (6.2-12.0); NRBC Flagged by Analyzer 0 % (0-5); Platelet Count 296 K/mm3 (150-450); RBC Distribution Width CV 14.6 % (11.6-14.6); RBC Distribution Width SD 41.2 fl (35.1-43.9); Red Blood Count 5.36 M/mm3 (4.2-5.4); White Blood Count 10.7 K/mm3 (4.4-11.0)
[2025-01-08 16:21] LABS: AST(SGOT) 13 U/L (<=31); Alanine Aminotransfer ALT/SGPT 17 U/L (<=34); Albumin, Serum 4.0 g/dL (3.5-5.0); Alkaline Phosphatase 64 U/L (35-104); Anion Gap 11 (5-15); BUN 15 mg/dL (4-19); BUN/Creat Ratio 20.2 RATIO (10-20); Calcium,Total 9.1 mg/dL (7.6-11.0); Carbon Dioxide 25.6 mmol/L (21.0-32.0); Chloride 103 mmol/L (98-108); Globulin 3.3 g/dL (2.2-4.2); Glucose 215 mg/dL (70-99); Iron 30 ug/dL (50-170); Iron Binding Capacity,Total 294 ug/dL (250-450); Iron Binding Capacity,Unsat 264 ug/dL (228-428); Potassium 4.1 mmol/L (3.3-5.1)
[2025-01-08 16:26] LABS: Ferritin 84 ng/mL (22-378); Vitamin D,25 Hydroxy 60.9 ng/mL (30-100)
== END | disposition home or self-care (01) ==
LOC: LAB 15:12
PROVIDERS: PCP Nurse Practitioner Family; Referring Provider Nurse Practitioner Family; Visit Provider Nurse Practitioner Family
DX: D64.9 Anemia, unspecified (principal); E11.9 Type 2 diabetes mellitus without complications; E55.9 Vitamin D deficiency, unspecified
CPT/HCPCS: 36415; 80053; 82306; 82728; 83036; 83540; 83550; 85025

== ENCOUNTER → 2025-02-06 | Outpatient (CLI) | payer MEDICAID, SELFPAY ==
[2025-02-06 15:38] LABS: Hematocrit 40.8 % (37-47); Hemoglobin 13.0 g/dL (12.0-15.0); Immature Granulocytes Count 0.030 X10^3/uL (0.0-0.0); Mean Corp Hgb Conc 31.9 g/dL (32-36); Mean Corpuscular Volume 77.9 fL (81-99); Mean Platelet Vol. 10.7 fl (6.2-12.0); NRBC Flagged by Analyzer 0 % (0-5); Platelet Count 253 K/mm3 (150-450); RBC Distribution Width CV 15.5 % (11.6-14.6); RBC Distribution Width SD 43.6 fl (35.1-43.9); Red Blood Count 5.24 M/mm3 (4.2-5.4); White Blood Count 9.7 K/mm3 (4.4-11.0)
[2025-02-06 16:36] LABS: Ferritin 113 ng/mL (22-378); Iron 41 ug/dL (50-170); Iron Binding Capacity,Total 297 ug/dL (250-450); Iron Binding Capacity,Unsat 256 ug/dL (228-428)
== END | disposition home or self-care (01) ==
LOC: LAB 15:18
PROVIDERS: PCP Nurse Practitioner Family; Referring Provider Nurse Practitioner Family; Visit Provider Nurse Practitioner Family
DX: E61.1 Iron deficiency (principal)
CPT/HCPCS: 36415; 82728; 83540; 83550; 85025